=== PATIENT | female | born 1965 | race Caucasian/White ===

== ENCOUNTER 2017-02-10 00:49 | Emergency (ER) | payer OTHER ==
[2017-02-10 00:56] VITALS: TEMP 97.9
[2017-02-10] MEDS ORDERED: ONDANSETRON DISINTEGRATING 4 MG TAB ONE (00:58)
[2017-02-10] MEDS ORDERED: ONDANSETRON DISINTEGRATING 4 MG TAB PO ONE (01:06)
[2017-02-10] MEDS ORDERED: NS 1,000 ML IV ONE ×2 (01:09)
[2017-02-10] MEDS ORDERED: KETOROLAC 15 MG/1 ML SDV IVP ONE (01:09)
[2017-02-10] MEDS ORDERED: ACETAMINOPHEN 500 MG TAB PO ONE (01:09)
[2017-02-10] MEDS ORDERED: LIDOCAINE 1% 100 MG in NS 100 ML IV ONE (01:09)
--- NOTE | 2017-02-10 01:24 | EDPHY ---
H & P Stated Complaint: LEFT FLANK PAIN 3 P.M. DENIES UTI SX Time Seen by Provider: 02/10/17 00:58 HPI/ROS: HPI The patient presents with left flank pain which is dull, constant, since about 3 :00 p.m. today. It came on suddenly. It is associated with nausea and vomiting. Throughout the last 1 month she has had intermittent similar pain, though this is the most severe. She denies any dysuria or hematuria. She denies any trauma. She denies any rash.. REVIEW OF SYSTEMS Constitutional: No fever, no chills. Eyes: No discharge. ENT: No sore throat. Cardiovascular: No chest pain, no palpitations. Respiratory: No cough, no shortness of breath. Gastrointestinal: See HPI Genitourinary: No hematuria. Musculoskeletal: No back pain. Skin: No rashes. Neurological: No headache. PMHx: healthy Soc Hx: Going through a divorce PHYSICAL General Appearance: Alert, uncomfortable appearing Eyes: Pupils equal and round no pallor or injection ENT, Mouth: Mucous membranes moist Respiratory: There are no retractions, lungs are clear to auscultation Cardiovascular: Regular rate and rhythm Gastrointestinal: Abdomen is soft and non-tender, no masses, bowel sounds normal, left flank tenderness Neurological: A&O, moves all extremities Skin: Warm and dry, no rashes Musculoskeletal: Neck is supple non tender Extremities: symmetrical, full range of motion Psychiatric: Patient is oriented X 3, there is no agitation Source: Patient Exam Limitations: No limitations - Personal History LMP (Females 10-55): Irregular Current Tetanus/Diphtheria Vaccine: Yes Current Tetanus Diphtheria and Acellular Pertussis (TDAP): Yes - Medical/Surgical History Hx Asthma: No Hx Chronic Respiratory Disease: No Hx Diabetes: No Hx Cardiac Disease: No Hx Renal Disease: No Hx Cirrhosis: No Hx Alcoholism: No Hx HIV/AIDS: No Hx Splenectomy or Spleen Trauma: No Other PMH: DEPRESSION. - Social History Smoking Status: Never smoked Constitutional: Initial Vital Signs Temperature (C) 36.6 C 02/10/17 00:52 Heart Rate 61 02/10/17 00:52 Respiratory Rate 18 02/10/17 00:52 Blood Pressure 115/71 02/10/17 00:52 O2 Sat (%) 98 02/10/17 00:52 O2 Delivery Mode Room Air O2 (L/minute) 93 Allergies/Adverse Reactions: penicillin G Allergy (Verified 02/10/17 00:55) Home Medications: Medication Instructions Recorded Ondansetron Odt [Zofran Odt 4 mg 4 mg PO Q4 PRN #10 tab 02/10/17 (*)] Tamsulosin HCl [Flomax 0.4 MG (*)] 0.4 mg PO DAILY #10 cap 02/10/17 Topiramate [Qudexy Xr] 100 mg PO 02/10/17 lamoTRIgine [Lamotrigine] 100 mg PO 02/10/17 Medical Decision Making Procedures: Bedside limited abdominal Ultrasound- performed and interpreted by me. Indication: Left flank pain Findings: Left-sided hydronephrosis which is mild with hydroureter, no obvious stone, no free fluid Impression: Left-sided mild hydronephrosis with hydroureter Differential Diagnosis: This is a 51-year-old female who presents with 1 day of left-sided flank pain associated with vomiting. On exam, she is uncomfortable appearing, she has normal vital signs, she is left-sided flank tenderness. Differential diagnosis includes ureterolithiasis, pyelonephritis, less likely AAA. In the emergency room, the patient was treated with IV fluids for vomiting, Zofran, Toradol, lidocaine with complete resolution of her symptoms. She felt well. Labs were checked and were unremarkable except for hematuria. Bedside ultrasound was performed showing hydronephrosis on the left side which raises suspicion for ureterolithiasis. The patient does not want have a CT scan because she is very concerned about hospital coughs. She does not have insurance until February 15. She would like to hold on the CT scan until this time. I feel this is reasonable. I will prescribe her with medications to go home with a Neurology referral. We have discussed return precautions. - Data Points Laboratory Results: Laboratory Results 02/10/17 01:45 02/10/17 01:45 02/10/17 02/10/17 02/10/17 03:35 01:45 01:45 WBC 11.40 10^3/uL H 10^3/uL (3.80-9.50) RBC 4.68 10^6/uL 10^6/uL (4.18-5.33) Hgb 15.4 g/dL g/dL (12.6-16.3) Hct 44.6 % % (38.0-47.0) MCV 95.3 fL fL (81.5-99.8) MCH 32.9 pg pg (27.9-34.1) MCHC 34.5 g/dL g/dL (32.4-36.7) RDW 12.5 % % (11.5-15.2) Plt Count 207 10^3/uL 10^3/uL (150-400) MPV 10.1 fL fL (8.7-11.7) Neut % (Auto) 91.7 % H % (39.3-74.2) Lymph % (Auto) 4.7 % L % (15.0-45.0) [place] % (Auto) 2.7 % L % (4.5-13.0) Eos % (Auto) 0.2 % L % (0.6-7.6) Baso % (Auto) 0.4 % % (0.3-1.7) Nucleat RBC Rel Count 0.0 % % (0.0-0.2) Absolute Neuts (auto) 10.46 10^3/uL H 10^3/uL (1.70-6.50) Absolute Lymphs (auto) 0.54 10^3/uL L 10^3/uL (1.00-3.00) Absolute Monos (auto) 0.31 10^3/uL 10^3/uL (0.30-0.80) Absolute Eos (auto) 0.02 10^3/uL L 10^3/uL (0.03-0.40) Absolute Basos (auto) 0.04 10^3/uL 10^3/uL (0.02-0.10) Absolute Nucleated RBC 0.00 10^3/uL 10^3/uL (0-0.01) Immature Gran % 0.3 % % (0.0-1.1) Immature Gran # 0.03 10^3/uL 10^3/uL (0.00-0.10) Sodium 140 mEq/L mEq/L (134-144) Potassium 4.8 mEq/L mEq/L (3.5-5.2) Chloride 111 mEq/L H mEq/L (97-110) Carbon Dioxide 19 mEq/l L mEq/l (22-31) Anion Gap 10 mEq/L mEq/L (8-16) BUN 9 mg/dL mg/dL (7-23) Creatinine 0.8 mg/dL mg/dL (0.6-1.0) Estimated GFR > 60 Glucose 120 mg/dL H mg/dL (70-100) Calcium 9.2 mg/dL mg/dL (8.5-10.4) Urine Color YELLOW Urine Appearance CLEAR Urine pH 6.0 (5.0-7.5) Ur Specific [place] 1.011 (1.002-1.030) Urine Protein NEGATIVE (NEGATIVE) Urine Ketones 2+ H (NEGATIVE) Urine Blood 2+ H (NEGATIVE) Urine Nitrate NEGATIVE (NEGATIVE) Urine Bilirubin NEGATIVE (NEGATIVE) Urine Urobilinogen NEGATIVE EU EU (0.2-1.0) Ur Leukocyte Esterase NEGATIVE (NEGATIVE) Urine RBC 10-15 /hpf H /hpf (0-3) Urine WBC 3-5 /hpf H /hpf (0-3) Ur Epithelial Cells NONE SEEN /lpf /lpf (NONE-1+) Urine Bacteria TRACE /hpf H /hpf (NONE SEEN) Urine Mucus TRACE /lpf /lpf (NONE-1+) Urine Glucose NEGATIVE (NEGATIVE) Medications Given: Discontinued Medications Acetaminophen (Tylenol) 1,000 mg PO EDNOW ONE Stop: 02/10/17 01:10 Last Admin: 02/10/17 01:37 Dose: 1,000 mg Sodium Chloride (Ns) 1,000 mls @ 0 mls/hr IV ONCE ONE PRN Reason: Wide Open Stop: 02/10/17 01:10 Last Admin: 02/10/17 01:54 Dose: 1,000 mls Sodium Chloride (Ns) 1,000 mls @ 0 mls/hr IV ONCE ONE PRN Reason: Wide Open Stop: 02/10/17 01:10 Last Admin: 02/10/17 01:54 Dose: Not Given Lidocaine HCl 100 mg/ Sodium (Chloride) 110 mls @ 600 mls/hr IV EDNOW ONE Stop: 02/10/17 01:19 Last Admin: 02/10/17 01:58 Dose: 110 mls Ketorolac Tromethamine (Toradol) 15 mg IVP EDNOW ONE Stop: 02/10/17 01:10 Last Admin: 02/10/17 01:38 Dose: 15 mg Ondansetron HCl (Zofran Odt) 4 mg PO EDNOW ONE Stop: 02/10/17 01:07 Last Admin: 02/10/17 01:07 Dose: 4 mg Departure - Departure Disposition: Home, Routine, Self-Care Clinical Impression: Calculus of left kidney Instructions: Kidney Stones (ED), How to Strain Your Urine (ED) Additional Instructions: 1. Take Ibuprofen or Motrin 600 mg by mouth three times a day. 2. Take Tylenol 1 g in addition to this if the pain is severe. 3. Flomax as directed 4. Zofran as needed for nausea 5. Strain urine as directed 6. Return to the Emergency Department for intractable pain, fever or vomiting. 7. Followup with the urologist you have been referred to for unimproved symptoms. Referrals: SHYANNE STOKES [Primary Care Provider] - As per Instructions Madhu Junior MD [Medical Doctor] - As per Instructions Prescriptions: Ondansetron Odt [Zofran Odt 4 mg (*)] 4 mg PO Q4 PRN #10 tab PRN Reason: Nausea/Vomiting, Can'T Take Po Tamsulosin HCl [Flomax 0.4 MG (*)] 0.4 mg PO DAILY #10 cap
[2017-02-10 01:50] LABS: % IMMATURE GRANULYOCYTES 0.3 % (0.0-1.1); ABSOLUTE IMMATURE GRANULOCYTES 0.03 10^3/uL (0.00-0.10); ADD DIFF? NO; ADD MORPH? NO; ADD SCAN? NO; ATYPICAL LYMPHOCYTE FLAG 0 (0-99); FRAGMENT RBC FLAG 0 (0-99); HEMATOCRIT 44.6 % (38.0-47.0); HEMOGLOBIN 15.4 g/dL (12.6-16.3); LEFT SHIFT FLG 0 (0-99); LIPEMIA HEMOLYSIS FLAG 90 (0-99); MEAN CELL HEMOGLOBIN 32.9 pg (27.9-34.1); MEAN CELL HEMOGLOBIN CONCENTR. 34.5 g/dL (32.4-36.7); MEAN CELL VOLUME 95.3 fL (81.5-99.8); MEAN PLATELET VOLUME 10.1 fL (8.7-11.7); PLATELET CLUMPS FLAG 0 (0-99); PLATELET COUNT 207 10^3/uL (150-400); RED BLOOD CELL COUNT 4.68 10^6/uL (4.18-5.33); RED CELL DISTRIBUTION WIDTH 12.5 % (11.5-15.2)
[2017-02-10 02:01] LABS: ANION GAP 10 mEq/L (8-16); CALCIUM 9.2 mg/dL (8.5-10.4); CARBON DIOXIDE 19 mEq/l (22-31); CHLORIDE 111 mEq/L (97-110); CREATININE 0.8 mg/dL (0.6-1.0); GLOMERULAR FILTRATION RATE > 60; GLUCOSE 120 mg/dL (70-100); POTASSIUM 4.8 mEq/L (3.5-5.2); SODIUM 140 mEq/L (134-144)
[2017-02-10 03:42] VITALS: PULSE 66; RESP 16; O2SAT 96
[2017-02-10 04:02] LABS: COLOR YELLOW; LEUKOCYTE ESTERASE,URINE NEGATIVE (NEGATIVE); NITRITE,URINE NEGATIVE (NEGATIVE)
[2017-02-10 04:07] LABS: BACTERIA TRACE /hpf (NONE SEEN); MUCUS TRACE /lpf (NONE-1+)
[2017-02-10 04:26] VITALS: BP 115/63
== END 2017-02-10 04:25 | disposition home or self-care (01) ==
DX: N20.0 Calculus of kidney (principal)
CPT/HCPCS: 96374; J1885

== ENCOUNTER 2017-03-12 12:10 | Emergency (ER) | payer OTHER ==
[2017-03-12 12:17] VITALS: PULSE 75
[2017-03-12] MEDS ORDERED: NS 1,000 ML IV ONE (12:46)
[2017-03-12 12:52] LABS: COLOR PALE YELLOW; LEUKOCYTE ESTERASE,URINE NEGATIVE (NEGATIVE); NITRITE,URINE NEGATIVE (NEGATIVE)
[2017-03-12] MEDS ORDERED: LIDOCAINE 1% 100 MG in NS 100 ML IV ONE (13:01)
[2017-03-12] MEDS ORDERED: ONDANSETRON 4 MG/2 ML VIAL IVP ONE (13:03)
[2017-03-12 13:07] LABS: BACTERIA TRACE /hpf (NONE SEEN)
[2017-03-12 13:08] LABS: WBC,URINE NONE SEEN /hpf (0-3)
[2017-03-12 13:18] LABS: % IMMATURE GRANULYOCYTES 0.5 % (0.0-1.1); ABSOLUTE IMMATURE GRANULOCYTES 0.02 10^3/uL (0.00-0.10); ADD DIFF? NO; ADD MORPH? NO; ADD SCAN? NO; ATYPICAL LYMPHOCYTE FLAG 0 (0-99); FRAGMENT RBC FLAG 0 (0-99); HEMATOCRIT 43.3 % (38.0-47.0); HEMOGLOBIN 15.3 g/dL (12.6-16.3); LEFT SHIFT FLG 0 (0-99); LIPEMIA HEMOLYSIS FLAG 90 (0-99); MEAN CELL HEMOGLOBIN 33.3 pg (27.9-34.1); MEAN CELL HEMOGLOBIN CONCENTR. 35.3 g/dL (32.4-36.7); MEAN CELL VOLUME 94.1 fL (81.5-99.8); MEAN PLATELET VOLUME 10.2 fL (8.7-11.7); PLATELET CLUMPS FLAG 0 (0-99); PLATELET COUNT 189 10^3/uL (150-400); RED CELL DISTRIBUTION WIDTH 12.2 % (11.5-15.2)
--- NOTE | 2017-03-12 13:18 | EDPHY ---
H & P Stated Complaint: Left flank and LLQ pain, diagnosed kidney stone 1 month ago. Source: Patient Exam Limitations: No limitations - Personal History LMP (Females 10-55): Post Menopausal Current Tetanus Diphtheria and Acellular Pertussis (TDAP): Unsure - Medical/Surgical History Hx Asthma: No Hx Chronic Respiratory Disease: No Hx Diabetes: No Hx Cardiac Disease: No Hx Renal Disease: No Hx Cirrhosis: No Hx Alcoholism: No Hx HIV/AIDS: No Hx Splenectomy or Spleen Trauma: No Other PMH: DEPRESSION. - Social History Smoking Status: Never smoked Time Seen by Provider: 03/12/17 12:23 HPI/ROS: CHIEF COMPLAINT: Left flank pain, nausea and vomiting HISTORY OF PRESENT ILLNESS: 51-year-old female presents emergency department complaining of left flank pain, nausea and vomiting. Patient reports she was seen in the emergency department 1 month ago and diagnosed with a presumed kidney stone. She refuses CT scan at that time due to no health insurance and cost constraints. Patient reports her symptoms resolved, 2 days ago she developed a mild ache in her left flank, today she noticed urinary frequency and urgency and worsening left flank pain that started radiating to her left lower quadrant. Patient denies fevers or chills. She denies hematuria, no dysuria. REVIEW OF SYSTEMS: A comprehensive 10 point review of systems is otherwise negative aside from elements mentioned in the history of present illness. (Iram Fan) - Physical Exam Exam: Physical Exam Gen: Alert and Oriented, NAD HEENT: PERRL, moist mucous membranes NECK: no meningismus CV: regular rate and regular rhythm PULM: CTAB, no wheezes ABDOMEN: soft, non tender to palpation, BS present BACK: No CVA tenderness NEURO: Neurologically grossly intact EXTREMITIES: normal appearing SKIN: no rash or break in skin on exposed skin PSYCH: answers questions appropriately. (Iram Fan) Constitutional: Initial Vital Signs Temperature (C) 36.3 C 03/12/17 12:14 Heart Rate 75 03/12/17 12:14 Respiratory Rate 16 03/12/17 12:14 Blood Pressure 140/98 H 03/12/17 12:14 O2 Sat (%) 95 03/12/17 12:14 O2 Delivery Mode Room Air Allergies/Adverse Reactions: penicillin G Allergy (Verified 02/10/17 00:55) Home Medications: Medication Instructions Recorded Ondansetron Odt [Zofran Odt 4 mg 4 mg PO Q4 PRN #10 tab 02/10/17 (*)] Tamsulosin HCl [Flomax 0.4 MG (*)] 0.4 mg PO DAILY #10 cap 02/10/17 Topiramate [Qudexy Xr] 100 mg PO 02/10/17 lamoTRIgine [Lamotrigine] 100 mg PO 02/10/17 Ondansetron Odt [Zofran Odt] 4 mg PO Q6-8PRN PRN #8 tab 03/12/17 oxyCODONE/APAP 5/325 [Percocet 1 - 2 tab PO Q6H PRN #12 tab 03/12/17 5/325] Medical Decision Making - Diagnostics Imaging Results: Imaging Impressions Abdomen/Pelvis CT 03/12/17 13:03 Impression: 9 x 7 x 6.6 mm left UPJ stone with moderate obstruction. Findings discussed with Iram Fan NP, at 1340 hours, 03/12/2017. Final report concurs with initial preliminary interpretation. Attention: This examination does not use radiographic contrast, and as such, provides only a limited evaluation of the abdomen, pelvis, and retroperitoneum. If there is further clinical suspicion for pathological conditions, a complete CT evaluation of the abdomen and pelvis utilizing intravenous, oral, and rectal contrast should be considered. ED Course/Re-evaluation: IV established, CBC, chemistry panel, urinalysis ordered, CT abdomen pelvis without contrast has been ordered. I have also ordered 4 mg of Zofran and a lidocaine infusion for pain control. CBC normal, chemistry panel with normal kidney functions, urinalysis with 1-3 RBCs, no evidence of infection. CT abdomen pelvis shows a 7.4 x 5.5 x 6.6 mm stone at the UPJ with moderate hydronephrosis. Patient's pain is controlled with Zofran, Toradol and a lidocaine infusion. She will be discharged home with a prescription for Percocet and Zofran. Patient reports she will not take Flomax as she does not like the way it makes her feel from when she was prescribed at 1 month ago. She has been given the urologist to follow up with. I explained to her that this will likely need to be removed. Urology on-call has been paged and is aware of this patient. The patient has been given strict return precautions for any fevers, worsening symptoms, new symptoms or concerns. (Iram Fan) Differential Diagnosis: The differential diagnosis for the patient's flank pain included but was not limited to musculoskeletal causes, kidney stone, pyelonephritis, shingles, diverticulitis, appendicitis, and aortic aneurysm. (Iram Fan) Other Provider: [id number]: Consulted with Dr. Justice, urologist, he will see patient in his office this week. (Bennie Ocasio) - Data Points Laboratory Results: Laboratory Results 03/12/17 13:04 03/12/17 13:04 03/12/17 03/12/17 03/12/17 13:04 13:04 12:30 WBC 4.23 10^3/uL 10^3/uL (3.80-9.50) RBC 4.60 10^6/uL 10^6/uL (4.18-5.33) Hgb 15.3 g/dL g/dL (12.6-16.3) Hct 43.3 % % (38.0-47.0) MCV 94.1 fL fL (81.5-99.8) MCH 33.3 pg pg (27.9-34.1) MCHC 35.3 g/dL g/dL (32.4-36.7) RDW 12.2 % % (11.5-15.2) Plt Count 189 10^3/uL 10^3/uL (150-400) MPV 10.2 fL fL (8.7-11.7) Neut % (Auto) 71.8 % % (39.3-74.2) Lymph % (Auto) 18.0 % % (15.0-45.0) [place] % (Auto) 6.4 % % (4.5-13.0) Eos % (Auto) 2.4 % % (0.6-7.6) Baso % (Auto) 0.9 % % (0.3-1.7) Nucleat RBC Rel Count 0.0 % % (0.0-0.2) Absolute Neuts (auto) 3.04 10^3/uL 10^3/uL (1.70-6.50) Absolute Lymphs (auto) 0.76 10^3/uL L 10^3/uL (1.00-3.00) Absolute Monos (auto) 0.27 10^3/uL L 10^3/uL (0.30-0.80) Absolute Eos (auto) 0.10 10^3/uL 10^3/uL (0.03-0.40) Absolute Basos (auto) 0.04 10^3/uL 10^3/uL (0.02-0.10) Absolute Nucleated RBC 0.00 10^3/uL 10^3/uL (0-0.01) Immature Gran % 0.5 % % (0.0-1.1) Immature Gran # 0.02 10^3/uL 10^3/uL (0.00-0.10) Sodium 141 mEq/L mEq/L (134-144) Potassium 3.8 mEq/L mEq/L (3.5-5.2) Chloride 112 mEq/L H mEq/L (97-110) Carbon Dioxide 17 mEq/l L mEq/l (22-31) Anion Gap 12 mEq/L mEq/L (8-16) BUN 11 mg/dL mg/dL (7-23) Creatinine 0.8 mg/dL mg/dL (0.6-1.0) Estimated GFR > 60 Glucose 101 mg/dL H mg/dL (70-100) Calcium 8.8 mg/dL mg/dL (8.5-10.4) Urine Color Urine Appearance Urine pH Ur Specific [place] Urine Protein Urine Ketones Urine Blood Urine Nitrate Urine Bilirubin Urine Urobilinogen Ur Leukocyte Esterase Urine RBC Urine WBC Ur Epithelial Cells Urine Bacteria Urine Glucose Urine Test NEGATIVE 03/12/17 12:30 WBC RBC Hgb Hct MCV MCH MCHC RDW Plt Count MPV Neut % (Auto) Lymph % (Auto) [place] % (Auto) Eos % (Auto) Baso % (Auto) Nucleat RBC Rel Count Absolute Neuts (auto) Absolute Lymphs (auto) Absolute Monos (auto) Absolute Eos (auto) Absolute Basos (auto) Absolute Nucleated RBC Immature Gran % Immature Gran # Sodium Potassium Chloride Carbon Dioxide Anion Gap BUN Creatinine Estimated GFR Glucose Calcium Urine Color PALE YELLOW Urine Appearance CLEAR Urine pH 7.0 (5.0-7.5) Ur Specific [place] 1.002 (1.002-1.030) Urine Protein NEGATIVE (NEGATIVE) Urine Ketones NEGATIVE (NEGATIVE) Urine Blood 3+ H (NEGATIVE) Urine Nitrate NEGATIVE (NEGATIVE) Urine Bilirubin NEGATIVE (NEGATIVE) Urine Urobilinogen NEGATIVE EU EU (0.2-1.0) Ur Leukocyte Esterase NEGATIVE (NEGATIVE) Urine RBC 1-3 /hpf /hpf (0-3) Urine WBC NONE SEEN /hpf /hpf (0-3) Ur Epithelial Cells TRACE /lpf /lpf (NONE-1+) Urine Bacteria TRACE /hpf H /hpf (NONE SEEN) Urine Glucose NEGATIVE (NEGATIVE) Urine Test Medications Given: Discontinued Medications Sodium Chloride (Ns) 1,000 mls @ 0 mls/hr IV ONCE ONE PRN Reason: Wide Open Stop: 03/12/17 12:47 Last Admin: 03/12/17 12:46 Dose: 1,000 mls Lidocaine HCl 100 mg/ Sodium (Chloride) 110 mls @ 600 mls/hr IV EDNOW ONE Stop: 03/12/17 13:11 Last Admin: 03/12/17 13:15 Dose: 110 mls Ketorolac Tromethamine (Toradol) 15 mg IVP EDNOW ONE Stop: 03/12/17 13:44 Last Admin: 03/12/17 13:50 Dose: 15 mg Ondansetron HCl (Zofran) 4 mg IVP EDNOW ONE Stop: 03/12/17 13:04 Last Admin: 03/12/17 13:12 Dose: 4 mg Departure - Departure Disposition: Home, Routine, Self-Care Clinical Impression: Ureteral stone with hydronephrosis Condition: Good Instructions: Kidney Stones (ED) Additional Instructions: Kidney stone: Take Percocet as needed for severe pain. Use Zofran as needed for nausea. Take ibuprofen 600 mg every 8 hours as needed for moderate pain. This will also help with inflammation. Followup with urology. Call to schedule an appointment. Return to the emergency department if you have worsening pain, fevers, persistent vomiting, or other concerns. Referrals: Santosh Masters MD [Medical Doctor] - As per Instructions (Urologist accreditation manager) Prescriptions: Ondansetron Odt [Zofran Odt] 4 mg PO Q6-8PRN PRN #8 tab PRN Reason: Nausea/Vomiting, Can'T Take Po oxyCODONE/APAP 5/325 [Percocet 5/325] 1 - 2 tab PO Q6H PRN #12 tab PRN Reason: Pain, Severe
[2017-03-12 13:41] LABS: ANION GAP 12 mEq/L (8-16); CALCIUM 8.8 mg/dL (8.5-10.4); CARBON DIOXIDE 17 mEq/l (22-31); CHLORIDE 112 mEq/L (97-110); CREATININE 0.8 mg/dL (0.6-1.0); GLOMERULAR FILTRATION RATE > 60; GLUCOSE 101 mg/dL (70-100); POTASSIUM 3.8 mEq/L (3.5-5.2); SODIUM 141 mEq/L (134-144)
[2017-03-12] MEDS ORDERED: KETOROLAC 15 MG/1 ML SDV IVP ONE (13:43)
[2017-03-12 14:02] VITALS: BP 157/83; RESP 16; TEMP 98.3; O2SAT 94
== END 2017-03-12 14:00 | disposition home or self-care (01) ==
DX: N20.1 Calculus of ureter (principal); N13.30 Unspecified hydronephrosis
CPT/HCPCS: 96374; J1885; J2405

== ENCOUNTER 2017-09-14 16:53 | Inpatient (IN) | payer OTHER ==
--- NOTE | 2017-09-14 17:19 | EDPHY ---
HPI/HX/ROS/PE/MDM Narrative: CHIEF COMPLAINT: Abdominal pain HPI: This patient is a 52 year old female with history of kidney stones and depression complaining of abdominal pain. Her discomfort began about four months ago, but has increased in intensity since , one month ago. She has visited her primary care physician, Dr. Sun, twice regarding her symptoms. Her most recent visit was two or three weeks ago and she states lab work at that time was negative for H pylori, no elevated enzymes. Last week, her pain became more severe. She has been referred to gastroenterology for scope but has not been able to get an appointment yet. She denies having undergone any abdominal CT or other imaging. She has been taking Prilosec without relief. Today, she had such severe pain she had to leave work. She endorses nausea and has vomited four evenings in the last week, generally after lying down in bed. She denies hematemesis, hematochezia, melena. No dysuria. She had kidney stones this year beginning in December, and finally had procedural intervention in March. She states she took a lot of Advil during this time and is concerned regarding possible ulcer. Additionally, she has felt constipated this week. The patient denies fever, chest pain, shortness of breath, or other associated symptoms. REVIEW OF SYSTEMS: Aside from elements discussed in the HPI, a comprehensive 10-point review of systems was reviewed and is negative. PMH: 1. Kidney stones 2. Depression SOCIAL HISTORY: . Lives in [place]. PCP Dr. Sun. PHYSICAL EXAM: General: Patient is alert, in no acute distress. ENT:Eyes are normal to inspection. ENT inspection normal. Neck: Normal inspection. Full range of motion. Respiratory:No respiratory distress. Breath sounds normal bilaterally. Cardiovascular: Regular rate and rhythm. Strong peripheral pulses. Normal cap refill. Abdomen: Epigastric tenderness noted. There are no peritoneal signs. There are normal bowel sounds. Back: Normal to inspection. No tenderness to palpation. Skin: Normal color. No rash. Warm and dry. Extremities: Normal appearance. Full range of motion. Neuro: Oriented x3. Normal motor function. Normal sensory function. ED Course: 52 year old female presents with four month history of abdominal pain, worsening significantly over the last week. Exam reveals right upper quadrant tenderness. Plan for US abdomen to rule out cholecystitis or other acute processes. IV established. Plan for labs including CBC, BMP, liver, lipase. Plan to administer 1mg IV Dilaudid for pain relief. 19:02 Administered an additional 1mg IV Dilaudid for pain relief. 21:00: CTAP read by Dr. Felipe as showing a 3cm mass at pancreas, possibly pseudocyst. I consulted Dr. Casarez from GI. He will evaluate patient in the morning. Patient still in significant pain and requires admission for pain control and further workup. Consulted Dr. Valdez who will admit. MDM: This patient presents with ongoing severe epigastric pain not relieved by PPIs. We performed an extensive evaluation here in the ED which reveals robson- pancreatic mass. Dr. Casarez did not feel this was likely CA via telephone. Patient continued to experience severe abdominal pain in the ED requiring narcotics and will therefore need admission for pain control and close GI follow -up/further workup. I see no evidence of cholecystitis, sepsis, ACS, PNA or bowel obstruction. - Data Points Imaging Results: Imaging Impressions Abdomen Ultrasound 09/14/17 18:42 Impression: Mild enlargement of the distal common bile duct. No evidence for a choledochal stone. No evidence for cholelithiasis or cholecystitis. Results called and discussed with Umang Herrera M.D., on September 14, 2017 at 2009. Imaging: Discussed imaging studies w/ diesel trailer mechanic Radiologist Laboratory Results: Laboratory Results 09/14/17 17:37 09/14/17 17:37 09/14/17 09/14/17 17:37 17:37 WBC 5.95 10^3/uL 10^3/uL (3.80-9.50) RBC 4.74 10^6/uL 10^6/uL (4.18-5.33) Hgb 15.7 g/dL g/dL (12.6-16.3) Hct 43.6 % % (38.0-47.0) MCV 92.0 fL fL (81.5-99.8) MCH 33.1 pg pg (27.9-34.1) MCHC 36.0 g/dL g/dL (32.4-36.7) RDW 11.6 % % (11.5-15.2) Plt Count 243 10^3/uL 10^3/uL (150-400) MPV 9.7 fL fL (8.7-11.7) Neut % (Auto) 74.2 % % (39.3-74.2) Lymph % (Auto) 16.6 % % (15.0-45.0) [place] % (Auto) 7.1 % % (4.5-13.0) Eos % (Auto) 1.3 % % (0.6-7.6) Baso % (Auto) 0.5 % % (0.3-1.7) Nucleat RBC Rel Count 0.0 % % (0.0-0.2) Absolute Neuts (auto) 4.41 10^3/uL 10^3/uL (1.70-6.50) Absolute Lymphs (auto) 0.99 10^3/uL L 10^3/uL (1.00-3.00) Absolute Monos (auto) 0.42 10^3/uL 10^3/uL (0.30-0.80) Absolute Eos (auto) 0.08 10^3/uL 10^3/uL (0.03-0.40) Absolute Basos (auto) 0.03 10^3/uL 10^3/uL (0.02-0.10) Absolute Nucleated RBC 0.00 10^3/uL 10^3/uL (0-0.01) Immature Gran % 0.3 % % (0.0-1.1) Immature Gran # 0.02 10^3/uL 10^3/uL (0.00-0.10) Sodium 138 mEq/L mEq/L (134-144) Potassium 4.1 mEq/L mEq/L (3.5-5.2) Chloride 102 mEq/L mEq/L (97-110) Carbon Dioxide 21 mEq/l L mEq/l (22-31) Anion Gap 15 mEq/L mEq/L (8-16) BUN 13 mg/dL mg/dL (7-23) Creatinine 0.7 mg/dL mg/dL (0.6-1.0) Estimated GFR > 60 Glucose 90 mg/dL mg/dL (70-100) Calcium 9.8 mg/dL mg/dL (8.5-10.4) Total Bilirubin 0.7 mg/dL mg/dL (0.1-1.4) Conjugated Bilirubin 0.3 mg/dL mg/dL (0.0-0.5) Unconjugated Bilirubin 0.4 mg/dL mg/dL (0.0-1.1) AST 19 IU/L IU/L (14-46) ALT 26 IU/L IU/L (9-52) Alkaline Phosphatase 83 IU/L IU/L (38-126) Total Protein 7.1 g/dL g/dL (6.3-8.2) Albumin 4.4 g/dL g/dL (3.5-5.0) Lipase 240 IU/L IU/L (23-300) Medications Given: Discontinued Medications Hydromorphone HCl (Dilaudid) 1 mg IVP EDNOW ONE Stop: 09/14/17 17:38 Last Admin: 09/14/17 17:48 Dose: 1 mg Hydromorphone HCl (Dilaudid) 1 mg IVP EDNOW ONE Stop: 09/14/17 19:03 Last Admin: 09/14/17 19:07 Dose: 1 mg General Time Seen by Provider: 09/14/17 17:12 Initial Vital Signs: Initial Vital Signs Temperature (C) 36.6 C 09/14/17 16:56 Heart Rate 82 09/14/17 16:56 Respiratory Rate 18 09/14/17 16:56 Blood Pressure 161/97 H 09/14/17 16:56 O2 Sat (%) 93 09/14/17 16:56 O2 Delivery Mode Room Air O2 (L/minute) 10 Allergies/Adverse Reactions: penicillin G Allergy (Verified 09/14/17 21:29) Hives Home Medications: Medication Instructions Recorded Ondansetron Odt [Zofran Odt 4 mg 4 mg PO Q4 PRN #10 tab 02/10/17 (*)] lamoTRIgine [Lamotrigine] 100 mg PO DAILY 02/10/17 Acetaminophen [Tylenol 325mg (*)] 325 mg PO Q6 PRN 09/14/17 Omeprazole [Prilosec 20 mg] 20 mg PO BID 09/14/17 Hydrocodone/APAP 5/325 [[place] 1 - 2 tab PO Q4HRS PRN #30 tab 09/16/17 5/325 (*)] Polyethylene Glycol 3350 [Miralax 17 gm PO DAILY PRN pkt 09/16/17 17 gm (*)] traMADol HCL [Tramadol HCl] 50 mg PO Q6 PRN #30 tablet 09/16/17 Departure - Departure Disposition: [facility] Inpatient Acute Clinical Impression: Abdominal pain, Pancreatic mass Condition: Fair Report Scribed for: Umang Herrera Report Scribed by: Kristina Chilsd Date of Report: 09/14/17 Time of Report: 17:24 Physician Review and Approval Statement: Portions of this note were transcribed by an ED scribe. I personally performed the history, physical exam, and medical decision making; and confirm the accuracy of the information in the transcribed note.
[2017-09-14] MEDS ORDERED: HYDROmorphONE/DILAUDID 1 MG/ML INJ IVP ONE ×2 (17:37→19:02)
[2017-09-14 17:51] LABS: PLATELET COUNT 243 10^3/uL (150-400)
[2017-09-14] MEDS ORDERED: IOPAMIDOL (ISOVUE-300) 100 ML BTL ONE (20:28)
[2017-09-14] MEDS ORDERED: ACETAMINOPHEN 325 MG TAB PO PRN (22:16)
[2017-09-14] MEDS ORDERED: ONDANSETRON 4 MG/2 ML VIAL IVP PRN (22:16)
[2017-09-14] MEDS ORDERED: LORazepam 2 MG/ML INJ IVP PRN (22:16)
[2017-09-14] MEDS ORDERED: ONDANSETRON DISINTEGRATING 4 MG TAB PO PRN (22:16)
[2017-09-14] MEDS ORDERED: LACTULOSE 20 GM/30 ML UDCUP PO PRN (22:20)
[2017-09-14] MEDS ORDERED: POLYETHYLENE GLYCOL 3350 17 GM PKT PO PRN (22:20)
[2017-09-14] MEDS ORDERED: SENNOSIDES/DOCUSATE SODIUM TAB PO PRN (22:20)
[2017-09-14] MEDS ORDERED: MAGNESIUM HYDROXIDE 30 ML UDCUP PO PRN (22:20)
[2017-09-14] MEDS ORDERED: BISACODYL 10 MG SUPP PR PRN (22:20)
[2017-09-14] MEDS ORDERED: D5W NS 1,000 ML IV SCH (22:30)
--- NOTE | 2017-09-14 22:56 | PDGENHP ---
History and Physical - Chief Complaint abdominal pain - History of Present Illness Source - Patient provides history and appears reliable. EMR reviewed and case discussed with accepting provider. HPI - Pleasant 52 yo F with history of kidney stones and depression who presents to the ED today with complaints of acute on chronic epigastric pain with radiation to her upper back. Patient reports she started to develop symptoms in February. She thought she may have caught a stomach bug or as side effect of anti-malarials she was taking for her safari trip. Patient has continued to have progressive epigastric cramping pain and bloating. She endorses nausea/vomiting this past week. she denies hematemesis. She reports constipation. no melena/hematochezia. Patient has followed up with her PCP and was in process of awaiting for GI appointment. She reports negative H. pylori serology testing. she has been taking prilosec and advil without improvement in her symptoms. Today patient reports her pain was so excruciating that she could no longer sit at her desk and was crying from pain. Patient reports PMHx of pancreatic cyst resection as an . patient reports history of projectile vomiting prior to her surgery as a baby. Patient son with history of pancreatitis related to congenital malformation of pancreatic ducts. History Information - Allergies/Home Medication List Allergies/Adverse Reactions: penicillin G Allergy (Verified 09/14/17 21:29) Hives Home Medications: lamoTRIgine [Lamotrigine] 100 mg PO DAILY 02/10/17 [Last Taken 09/14/17] Acetaminophen [Tylenol 325mg (*)] 325 mg PO Q6 PRN 09/14/17 [Last Taken 09/14/17 ] Omeprazole [Prilosec 20 mg] 20 mg PO BID 09/14/17 [Last Taken 09/14/17 15:00] I have personally reviewed and updated: family history, medical history, social history, surgical history - Past Medical History Additional medical history: kidney stone. depression. IUD. 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 - Surgical History Additional surgical history: ex-lap age 9 mo with pancreatic cyst resection. lithotripsy - Family History Additional family history: mother - DM II. son - pancreatitis, autism. no FHx colon/stomach CA - Social History Smoking Status: Former smoker Tobacco Use: Cigarettes Alcohol Use: Occasionally (1 glass wine weekly recently. previously daily.) Drug Use: Marijuana (occasional for pain) Review of Systems Review of Systems: ROS: 10pt was reviewed & negative except for what was stated in HPI & below Constitutional: Denies: chills, fever EENMT: Reports: nose congestion. Denies: sore throat Cardiac: Reports: no symptoms Respiratory: Reports: no symptoms Gastrointestinal: Reports: other (see HPI) Genitourinary: Reports: no symptoms Muscolosketal: Reports: back pain Skin: Reports: no symptoms Neurological: Reports: anxiety (with recent increased stressors and illness), depressed (controlled with lamictal. no si/hi) Physical Exam Physical Exam: Selected Entries 09/14/17 16:56 Blood Pressure Automatic Method Heart Rate 82 Respiratory 18 Rate O2 Sat (%) 93 Temperature (C) 36.6 C Blood Pressure 161/97 H Mean Arterial 118 H Pressure (MAP) O2 Delivery Room Air Mode Temperature Oral Source Temp Pulse Resp BP Pulse Ox 36.6 C 85 18 150/85 H 96 09/14/17 16:56 09/14/17 22:02 09/14/17 22:02 09/14/17 22:02 09/14/17 22:02 Constitutional: no apparent distress, other (NAD at time of my interview. slightly anxious. becomes tearful discussing ddx. ) Eyes: PERRL, anicteric sclera, EOMI Ears, Nose, Mouth, Throat: moist mucous membranes, other (no nasal discharge. ) , No poor dentition Cardiovascular: regular rate and rhythym, no murmur, rub, or gallop, No systolic murmur, No edema Peripheral Pulses: 2+: dorsalis-pedis (R), dorsalis-pedis (L) Respiratory: no respiratory distress, no rales or rhonchi, clear to auscultation Gastrointestinal: no palpable masses, tenderness (epigastrium. ), No normoactive bowel sounds (hypoactive), No cano's sign, No guarding, No rebound , No distension Genitourinary: no bladder tenderness, No potter in urethra Skin: warm, normal color, No rash Musculoskeletal: full muscle strength, other (sits up independently. ), No joint tenderness, No generalized weakness Neurologic: AAOx3, sensation intact bilaterally, No facial droop Psychiatric: interacting appropriately, not encephalopathic, thought process linear, anxious, No depressed Lab Data & Imaging Review 09/15/17 03:50 09/15/17 03:50 WBC 5.95 10^3/uL (3.80-9.50) 09/14/17 17:37 RBC 4.74 10^6/uL (4.18-5.33) 09/14/17 17:37 Hgb 15.7 g/dL (12.6-16.3) 09/14/17 17:37 Hct 43.6 % (38.0-47.0) 09/14/17 17:37 MCV 92.0 fL (81.5-99.8) 09/14/17 17:37 MCH 33.1 pg (27.9-34.1) 09/14/17 17:37 MCHC 36.0 g/dL (32.4-36.7) 09/14/17 17:37 RDW 11.6 % (11.5-15.2) 09/14/17 17:37 Plt Count 243 10^3/uL (150-400) 09/14/17 17:37 MPV 9.7 fL (8.7-11.7) 09/14/17 17:37 Neut % (Auto) 74.2 % (39.3-74.2) 09/14/17 17:37 Lymph % (Auto) 16.6 % (15.0-45.0) 09/14/17 17:37 Marshall % (Auto) 7.1 % (4.5-13.0) 09/14/17 17:37 Eos % (Auto) 1.3 % (0.6-7.6) 09/14/17 17:37 Baso % (Auto) 0.5 % (0.3-1.7) 09/14/17 17:37 Nucleat RBC Rel Count 0.0 % (0.0-0.2) 09/14/17 17:37 Absolute Neuts (auto) 4.41 10^3/uL (1.70-6.50) 09/14/17 17:37 Absolute Lymphs (auto) 0.99 10^3/uL (1.00-3.00) L 09/14/17 17:37 Absolute Monos (auto) 0.42 10^3/uL (0.30-0.80) 09/14/17 17:37 Absolute Eos (auto) 0.08 10^3/uL (0.03-0.40) 09/14/17 17:37 Absolute Basos (auto) 0.03 10^3/uL (0.02-0.10) 09/14/17 17:37 Absolute Nucleated RBC 0.00 10^3/uL (0-0.01) 09/14/17 17:37 Immature Gran % 0.3 % (0.0-1.1) 09/14/17 17:37 Immature Gran # 0.02 10^3/uL (0.00-0.10) 09/14/17 17:37 Sodium 138 mEq/L (134-144) 09/14/17 17:37 Potassium 4.1 mEq/L (3.5-5.2) 09/14/17 17:37 Chloride 102 mEq/L (97-110) 09/14/17 17:37 Carbon Dioxide 21 mEq/l (22-31) L 09/14/17 17:37 Anion Gap 15 mEq/L (8-16) 09/14/17 17:37 BUN 13 mg/dL (7-23) 09/14/17 17:37 Creatinine 0.7 mg/dL (0.6-1.0) 09/14/17 17:37 Estimated GFR > 60 09/14/17 17:37 Glucose 90 mg/dL (70-100) 09/14/17 17:37 Calcium 9.8 mg/dL (8.5-10.4) 09/14/17 17:37 Total Bilirubin 0.7 mg/dL (0.1-1.4) 09/14/17 17:37 Conjugated Bilirubin 0.3 mg/dL (0.0-0.5) 09/14/17 17:37 Unconjugated Bilirubin 0.4 mg/dL (0.0-1.1) 09/14/17 17:37 AST 19 IU/L (14-46) 09/14/17 17:37 ALT 26 IU/L (9-52) 09/14/17 17:37 Alkaline Phosphatase 83 IU/L (38-126) 09/14/17 17:37 Total Protein 7.1 g/dL (6.3-8.2) 09/14/17 17:37 Albumin 4.4 g/dL (3.5-5.0) 09/14/17 17:37 Lipase 240 IU/L (23-300) 09/14/17 17:37 Imaging Review: CT Abdomen and Pelvis, With IV Contrast History: Epigastric pain for six weeks, worsening in the last 24 hours. History of kidney stones. Technique: 85 mL of Isovue-300 were given intravenously by machine power injection. Multidetector helical CT imaging was performed from the diaphragm to the symphysis pubis. Dose reduction techniques were utilized. Comparison: Ultrasound performed earlier today and CT February 2017. Findings: Abdomen: A 3.2-cm complex hypodense mass is seen in the uncinate process of the pancreas. Mild adjacent stranding in the mesentery. A thick-walled possible septation through it. The body and tail of the pancreas are normal in appearance. No focal liver lesion. The gallbladder is unremarkable. The spleen is unremarkable. The common bile duct is mildly prominent. Both kidneys enhance normally, without evidence for a mass or hydronephrosis. Both adrenal glands are normal in size and appearance. No significant abdominal lymphadenopathy. There is evidence of prior anterior abdominal wall surgery. Pelvis: Moderate stool is seen in the colon. No evidence for a small bowel obstruction. The appendix is normal in appearance. An IUD is seen in the uterus. No evidence for a bladder calculus. No significant free fluid in the pelvis. Impression: A 3.2-cm complex hypodense lesion in the uncinate process of the pancreas. This could represent a complex pancreatic cyst or neoplasm. Consider GI consultation and endoscopic ultrasound. Ultrasound Abdomen Limited History: Right upper quadrant pain. Possible cholelithiasis. Findings: The liver is homogeneous, measuring 12 cm. No focal liver lesion. No evidence for intrahepatic biliary ductal dilatation. The common bile duct is mildly enlarged , measuring 8 mm distally. No evidence for a choledochal stone. The pancreas is unremarkable. The abdominal aorta is normal in diameter. No evidence for cholelithiasis or cholecystitis. The right kidney measures 11.8 cm in length and demonstrates no evidence for a mass or hydronephrosis. No significant free fluid. Impression: Mild enlargement of the distal common bile duct. No evidence for a choledochal stone. No evidence for cholelithiasis or cholecystitis. Visualized and Interpreted imaging results: Yes Assessment & Plan Assessment: 52 yo F with hx depression and nephrolithiasis presents with progressivly worsening abdominal pain Abdominal pain (Acute) - ddx including pancreatic lesion/mass vs. gastritis vs ulcer vs constipation. GI consulted from ED and will plan to evaluate patient for EUS/bx. clears until midnight then NPO. dilaudid, ativan available prn. Pancreatic lesion (Acute) - plan as above. nausea/vomiting, not intractable - zofran, phenergan prn. depression - continue lamictal. ativan prn. FEN - IVF overnight while NPO D5NS. electrolyte replacement prn. clears then NPO after MN PPX - SCDs. holding anticoagulation for EUS. encourage ambulation. low dvt risk. COR - FULL. patient desires friend Shree Thomas to act as proxy if needed. Dispo - Admit to observation at this time pending further recs from GI.
[2017-09-14] MEDS: HYDROCODONE/APAP 5/325 TAB PO PRN (23:34)
[2017-09-15 04:13] LABS: PLATELET COUNT 201 10^3/uL (150-400)
[2017-09-15 04:23] LABS: INR 1.04 (0.83-1.16); PROTIME(PATIENT) 13.8 SEC (12.0-15.0)
[2017-09-15] MEDS: HYDROmorphONE/DILAUDID 1 MG/ML INJ IVP PRN ×4 (09:38→23:38)
--- NOTE | 2017-09-15 12:51 | HOSPPROG ---
Hospitalist Progress Note Assessment/Plan: 52 yo f w abd pain and cystic pancreatic mass pancreatic mass: eus w likely biopsy today h/o benign pancreatic cyst at young age noted abd pain: seems reasonable to attribute to mass mood disorder: lamictal proph: [facility]mwh if staying dispo: possibly home after biopsy Subjective: case d/w dr mohr. ct images reviewed/interpreted by me Objective: Vital Signs Temp Pulse Resp BP Pulse Ox 35.8 C L 71 18 149/86 H 98 09/15/17 12:00 09/15/17 12:00 09/15/17 12:00 09/15/17 12:00 09/15/17 12:00 Laboratory Results 09/15/17 03:50 09/15/17 03:50 09/14/17 09/15/17 09/16/17 05:59 05:59 05:59 Intake Total 784 Balance 784 PT 13.8 SEC (12.0-15.0) 09/15/17 03:50 INR 1.04 (0.83-1.16) 09/15/17 03:50 - Physical Exam Constitutional: no apparent distress, appears nourished Eyes: PERRL, anicteric sclera Ears, Nose, Mouth, Throat: moist mucous membranes, hearing normal Cardiovascular: regular rate and rhythym, no murmur, rub, or gallop Respiratory: no respiratory distress, no rales or rhonchi Gastrointestinal: normoactive bowel sounds, No guarding, No rebound Genitourinary: no bladder fullness, No potter in urethra Skin: warm, normal color Musculoskeletal: full muscle strength ICD10 Worksheet Patient Problems: Problems Problem Status Onset Abdominal pain Acute Pancreatic mass Acute
[2017-09-15] MEDS ORDERED: LIDOCAINE 2% 5 ML SDV ONE (13:13)
[2017-09-15] MEDS ORDERED: PROPOFOL/EMULSION 500 MG/50 ML BOTTLE IV ONE ×2 (13:14→13:58)
--- NOTE | 2017-09-15 13:16 | PDGENHP ---
History & Physical Chief Complaint: abdominal pain History of Present Illness: 52 year old female presents for evaluation of abdominal pain- midepi as well as abnormal imaging. CT scan reveales a 3.5 cm mass in uncinate process. Pertinent Past, Social, Family History: see dictated consult for details. Relevant Physical Exam: HEENT: anicteric. CV: RRR + s1s2. Lungs: CTAB No w/r/ r. Abd: tender in midepi Cardiorespiratory Assessment: ASA 2
[2017-09-15] MEDS ORDERED: MIDAZOLAM 2 MG/2 ML VIAL ONE (13:19)
--- NOTE | 2017-09-15 13:22 | GCON ---
[f rep st] CONSULTATION DATE OF CONSULTATION: 09/15/2017 CONSULTING PHYSICIAN: Steven Newby MD. REASON FOR CONSULTATION: Abnormal imaging/abdominal pain. CHIEF COMPLAINT: Abdominal pain. HISTORY OF PRESENT ILLNESS: The patient is a 52-year-old female with a history of kidney stones, depression, who presents to [facility] with complaints of abdominal pain. The patient states that she was doing well until approximately this April when she started to experience intermittent abdominal pain, mainly in the upper quadrants of her abdomen. This was very minor and of short duration. She states that this progressively got worse over the next several months. She now complains of a pain in the midepigastric area which she describes as "swallowing glass." This pain occurs on a daily basis and lasts multiple hours. She believes it is exacerbated by eating and she has decreased her oral intake. She denies any significant alleviating factors. She was placed on proton pump inhibitor therapy with little relief of her symptoms. She did have a trip to [facility] in May, but states the pain started before her trip. She also has complaints of nausea and vomited approximately 4 times in the last 1 week. She also complains of bloating. She states that her weight has been stable. She did have a CT scan with IV and p.o. contrast on 09/14/2017 which did reveal a possible low-density lesion in the uncinate process of the pancreas. There is no pancreatic duct dilation or common bile duct dilation. There is no evidence of chronic pancreatitis. She does have minor complaints of constipation. She states that she may have had a pancreatic cyst resection in her 1st year of life, but is unsure of why this was performed. Her son did have an episode of pancreatitis. She denies any significant alcohol use. I am asked by Dr. Newby to evaluate the patient in consultation regarding her abnormal imaging/abdominal pain. PAST MEDICAL HISTORY: Depression, kidney stone. PAST SURGICAL HISTORY: Pancreatic cyst resection, lithotripsy. FAMILY HISTORY: Son has pancreatitis and autism. Mother diabetes mellitus type 2. No history of colon cancer. SOCIAL HISTORY: Former smoker. Drinks occasional alcohol. Positive marijuana. ALLERGIES: Penicillin. HOME MEDICATIONS: Lamotrigine 100 mg p.o. daily, omeprazole 20 mg b.i.d. REVIEW OF SYSTEMS: A 14-point comprehensive review of systems was performed. Pertinent positives and negatives are per HPI. PHYSICAL EXAMINATION: VITAL SIGNS: Blood pressure 149/86, pulse 71, temperature 35.8. GENERAL: Awake, alert, oriented x3. No distress. HEENT: Anicteric. Moist mucosa. NECK: No JVD. CARDIOVASCULAR: Regular rate and rhythm. Positive S1, S2. No murmurs or gallops appreciated. LUNGS: Clear to auscultation bilaterally. No wheezes, rales or rhonchi. ABDOMEN: Tender in the midepigastrium area. No guarding. No rebound. Positive bowel sounds. EXTREMITIES: No clubbing, cyanosis or edema. NEUROLOGIC: 2 through 12 grossly intact. PSYCH: Normal affect. LYMPH: No lymphadenopathy noted. BLOOD WORK: WBCs 4.3, hemoglobin 14.3, hematocrit 40.6, platelets 201. INR 1.04, alkaline phosphatase 61, albumin 3.4, total bilirubin 0.6, AST 18, ALT 27 , sodium 140, potassium 3.8, chloride 104, bicarb 26, BUN 13, hemoglobin 14.3, hematocrit 40.6. CT scan on 09/14/2017: See HPI. Positive 3.2 cm hypodense lesion uncinate process of the pancreas without pancreatic duct dilation or common bile duct dilation. ASSESSMENT/PLAN: 1. Abdominal pain- chronic. Mainly in the upper abdomen. Does get some bloating, nausea, and vomiting. CT scan reveals a possible mass lesion in the pancreatic head. Etiology? Unsure of cause of her pain as well as abnormal imaging. I had a long discussion with the patient about proceeding with endoscopic ultrasound examination to evaluate her pancreas/abdominal pain with possible fine needle aspiration. The risks, benefits, and alternatives of the procedure were discussed in great detail with the patient. The risk of infection, bleeding, perforation, sedation were discussed. All questions answered and informed consent was obtained. Thank you very much for this consultation. /[id number]/MODL MTDD
--- NOTE | 2017-09-15 13:29 | PDANEPAE ---
ANE History of Present Illness 52 yo for egd/eus ANE Past Medical History - Pulmonary History Hx Oxygen in Use at Home: No Hx Sleep Apnea: No Sleep Apnea Screening Result - Last Documented: Negative - Endocrine History Hx Diabetes: No - Chronic Pain History Chronic Pain: No ANE Review of Systems Review of Systems: - Exercise capacity METS (RN): 4 METS ANE Patient History - Allergies Allergies/Adverse Reactions: penicillin G Allergy (Verified 09/14/17 21:29) Hives - Home Medications Home medications: home medication list seen and reviewed Home Medications: lamoTRIgine [Lamotrigine] 100 mg PO DAILY 02/10/17 [Last Taken 09/14/17] Acetaminophen [Tylenol 325mg (*)] 325 mg PO Q6 PRN 09/14/17 [Last Taken 09/14/17 ] Omeprazole [Prilosec 20 mg] 20 mg PO BID 09/14/17 [Last Taken 09/14/17 15:00] - NPO status NPO Status: no food or drink >8 hours NPO Since - Liquids (Date): 09/15/17 NPO Since - Liquids (Time): 00:00 NPO Since - Solids (Date): 09/15/17 NPO Since - Solids (Time): 00:00 - Anes Hx Anes Hx: no prior problems - Smoking Hx Smoking Status: Former smoker - Alcohol Use Alcohol Use: Occasionally (1 glass wine weekly recently. previously daily.) ANE Labs/Vital Signs - Labs Result Diagrams: 09/15/17 03:50 09/15/17 03:50 - Vital Signs Blood Pressure: 149/86 Heart Rate: 71 Respiratory Rate: 18 O2 Sat (%): 98 Height: 5 ft 3 in Weight: 66.587 kg ANE Physical Exam - Airway Neck exam: FROM Mallampati Score: Class 2 Mouth exam: normal dental/mouth exam - Pulmonary Pulmonary: no respiratory distress - Cardiovascular Cardiovascular: regular rate and rhythym - ASA Status ASA Status: II ANE Anesthesia Plan Anesthesia Plan: GA with mask
[2017-09-15] MEDS ORDERED: NS 500 ML IV SCH (13:30)
[2017-09-15] MEDS ORDERED: NALOXONE HCL 0.4 MG/ML INJ IVP PRN (14:52)
[2017-09-15] MEDS ORDERED: fentaNYL 100 MCG/2 ML INJ IVP PRN (14:52)
[2017-09-15] MEDS ORDERED: ONDANSETRON 4 MG/2 ML VIAL IVP PRN (14:52)
[2017-09-15] MEDS ORDERED: fentaNYL 100 MCG/2 ML INJ ONE (15:02)
--- NOTE | 2017-09-15 15:03 | POSTANESTH ---
Post Anesthetic Evaluation Cardiovascular Status: Normal, Stable Respiratory Status: Normal, Stable Level of Consciousness/Mental Status: Can Participate in Eval Pain Control: Adequate, Prn Tx Ordered Nausea/Vomiting Control: Adequate, Prn Tx Ordered Complications Possibly Related to Anesthesia: None Noted
[2017-09-15] MEDS ORDERED: ONDANSETRON 4 MG/2 ML VIAL ONE (15:07)
--- NOTE | 2017-09-15 15:14 | GIREPORT ---
[facility] Surgical Services - Endoscopy Department Patient Name: Gwendolyn Cabrera Procedure Date: 09/15/2017 11:48 AM Patient Type: Inpatient Attending MD/ ER Physician: Panda Casarez MD Procedure: Upper EUS Indications: Suspected mass in pancreas on CT scan, Epigastric abdominal pain Patient Profile: 52 year old female presents for evaluation of epigastric abdominal pain , nausea, vomiting, as well as possible mass lesion in head of pancreas. Providers: Panda Casarez MD Medicines: Monitored Anesthesia Care Complications: No immediate complications. Estimated blood loss: Minimal. Description of Procedure: After obtaining informed consent, the endoscope was passed under direct vision. Throughout the procedure, the patient's blood pressure, pulse, and oxygen saturations were monitored continuously. The Endoscope was intro duced through the mouth, and advanced to the second part of duodenum. The Endosonoscope was introduced through the mouth, and advanced to the sec ond part of duodenum. The upper EUS was accomplished without difficulty. Th e esophagus, stomach, and duodenum were visualized endosonographically. T he patient tolerated the procedure well. Findings: Endoscopic Finding : The examined esophagus and an inlet patch was noted in the proximal esophagus. A small hiatal hernia was present. Patchy mildly erythematous mucosa was found in the gastric body and in the gastric antrum. Biopsies were taken with a cold forceps for histology. The examined duodenum was normal. Biopsies for histology were taken wit h a cold forceps for evaluation of celiac disease. Endosonographic Finding : An irregular mass was identified in the pancreatic head. The mass was hypoechoic. The mass measured 33 mm by 35 mm in maximal cross-sectional diameter. The endosonographic borders were poorly-defined. The remainde r of the pancreas was examined. The endosonographic appearance of parenchyma and the upstream pancreatic duct indicated no duct dilation and hyperechoic ductal toth. Fine needle aspiration for cytology was performed. Color Doppler imaging was utilized prior to needle puncture to confirm a lack of significant vascular structures within the needle path. Four passes wer e made with the 25 gauge needle (2 using 25 gauge core biopsy needle) usi ng a transduodenal approach. A stylet was used. A locomotive supervisor was present and performed a preliminary cytologic examination. The cellularity of the specimen was adequate. Pancreatic parenchymal abnormalities were noted in the entire pancreas. These consisted of hyperechoic foci. There was no sign of significant endosonographic abnormality in the com mon bile duct and in the gallbladder. No lymphadenopathy seen. There was no sign of significant endosonographic abnormality in the ent emmanuel examined liver. Estimated Blood Loss: Estimated blood loss was minimal. Post Op Diagnosis: - Normal esophagus. - Small hiatal hernia. - Erythematous mucosa in the gastric body and antrum. Biopsied. - Normal examined duodenum. Biopsied. - A mass was identified in the pancreatic head. Fine needle aspiration performed. - Pancreatic parenchymal abnormalities consisting of hyperechoic foci w ere noted in the entire pancreas. - There was no sign of significant pathology in the common bile duct an d in the gallbladder. - There was no evidence of significant pathology in the entire examined liver. - Etiology? Suspect pancreatic cancer. Await final FNA results. No obvi ous vascular invasion noted. Keep NPO for today. Recommendation: - Return patient to [facility] for [facility] care. - NPO. - Oncology referral. - Await cytology results and await path results. - Thank you for allowing me to participate in the care of your patient. Attending Participation: I personally performed the entire procedure. Panda Casarez MD Panda Casarez MD 09/15/2017 3:14:09 PM This report has been signed electronicallyRamu Raju , MD Number of Addenda: 0 Note Initiated On: 09/15/2017 11:48 AM [email or web address]
--- NOTE | 2017-09-15 19:13 | PDMN ---
Medical Necessity Medical necessity: C/M review: Patient [place] [facility] [place] Abdominal pain, undiagnosed; Acute and persistent abdominal pain, 3.2 mm mass in the uncinate process of the pancreas on CT requiring 09/15 2017 upper EUS with fine aspiration biopsy of pancreatic mass, cytology pending, ongoing NPO till AM, IV fluids. IV Dilaudid, comorbid history of benign pancreatic cyst at a young age. MD anticipates > 2 MN LOS for ongoing med nec for eval and TX of above.
[2017-09-15] MEDS: HYDROCODONE/APAP 5/325 TAB PO PRN (19:31)
[2017-09-15] MEDS: PANTOPRAZOLE SODIUM 40 MG TAB PO SCH (19:31)
[2017-09-15] MEDS ORDERED: NON-FORMULARY NEW DRUG (Omeprazole [Prilosec 20 Mg] 20 MG) PO SCH (21:00)
[2017-09-16 03:45] VITALS: RESP 16
[2017-09-16] MEDS: HYDROmorphONE/DILAUDID 1 MG/ML INJ IVP PRN (04:15)
[2017-09-16] MEDS: HYDROCODONE/APAP 5/325 TAB PO PRN ×3 (05:27→11:17)
[2017-09-16 07:10] VITALS: PULSE 78
[2017-09-16] MEDS: PANTOPRAZOLE SODIUM 40 MG TAB PO SCH (08:43)
[2017-09-16] MEDS ORDERED: lamoTRIgine 100 MG TAB PO SCH (09:00)
[2017-09-16 10:57] VITALS: BP 143/91; TEMP 98; O2SAT 93
--- NOTE | 2017-09-16 12:20 | HOSPPROG ---
Hospitalist Progress Note Assessment/Plan: 52 yo f w abd pain and cystic pancreatic mass pancreatic mass: eus w likely biopsy today h/o benign pancreatic cyst at young age noted abd pain: seems reasonable to attribute to mass mood disorder: lamictal proph: lmwh if staying dispo: home today after onc eval >30 min Subjective: pain OK Objective: Vital Signs Temp Pulse Resp BP Pulse Ox 36.7 C 78 16 143/91 H 93 09/16/17 10:57 09/16/17 10:57 09/16/17 10:57 09/16/17 10:57 09/16/17 10:57 09/15/17 09/16/17 09/17/17 05:59 05:59 05:59 Intake Total 0 Balance 0 PT 13.8 SEC (12.0-15.0) 09/15/17 03:50 INR 1.04 (0.83-1.16) 09/15/17 03:50 - Physical Exam Constitutional: no apparent distress, appears nourished Eyes: PERRL, anicteric sclera Ears, Nose, Mouth, Throat: moist mucous membranes, hearing normal Cardiovascular: regular rate and rhythym, no murmur, rub, or gallop Respiratory: no respiratory distress, no rales or rhonchi Gastrointestinal: normoactive bowel sounds, soft, non-tender abdomen, No guarding, No rebound Genitourinary: No potter in urethra Skin: warm, normal color Musculoskeletal: full muscle strength, no muscle tenderness Neurologic: AAOx3 ICD10 Worksheet Patient Problems: Problems Problem Status Onset Abdominal pain Acute Pancreatic mass Acute
--- NOTE | 2017-09-16 12:28 | SOAPPROG ---
GOLD Progress Note Assessment/Plan: Assessment: Plan: 09/16/17 12:25 A/P 1. Panc mass- s/p EUS with FNA. FNA lesional on preliminary read. No obvious complication noted. Oncology will see today. GI will sign off. Thank you for the consultation. Subjective: cc: epigastric pain. F/u panc mass Still complaining of pain. Baseline. Objective: Vital Signs Temp Pulse Resp BP Pulse Ox 36.7 C 78 16 143/91 H 93 09/16/17 10:57 09/16/17 10:57 09/16/17 10:57 09/16/17 10:57 09/16/17 10:57 09/15/17 09/16/17 09/17/17 05:59 05:59 05:59 Intake Total 0 Balance 0 PT 13.8 SEC (12.0-15.0) 09/15/17 03:50 INR 1.04 (0.83-1.16) 09/15/17 03:50 Physical Exam - Physical Exam General Appearance: alert, no apparent distress EENT: No scleral icterus (R), No scleral icterus (L) Respiratory: lungs clear, normal breath sounds, No rales, No rhonchi Cardiac/Chest: regular rate, rhythm, No bradycardia, No tachycardia, No diastolic murmur, No systolic murmur Abdomen: soft, No non-tender (tender in midepi), No rebound Skin: normal color, warm/dry Neuro/Psych: normal mood/affect, oriented x 3, No abnormal drier feeder II-XII ICD10 Worksheet Patient Problems: Problems Problem Status Onset Abdominal pain Acute Pancreatic mass Acute
--- NOTE | 2017-09-16 14:17 | ASMTCMCOM ---
CM Note CM Note Notes: Chart reviewed. 52 year old female with new dx of pancreatic cancer. She currently has no needs identified Follow up appointments in place.. CM available should needs arise. Date Signed: 09/16/2017 02:16 PM Electronically Signed By:Marylin Diggs RN
--- NOTE | 2017-09-16 14:21 | GCON ---
[f rep st] CONSULTATION ONCOLOGY CONSULTATION NOTE REASON FOR CONSULTATION: Pancreatic mass with preliminary diagnosis of pancreatic cancer. HISTORY OF PRESENT ILLNESS: The patient is a very pleasant 52-year-old female recently diagnosed with a pancreatic mass. She has been in her usual state of health until June when she started developing intermittent severe mid- epigastric pain. The pain radiated to all quadrants of her abdomen and radiated to her back. She did not have any relief with antacid therapy. She presented to the emergency room due to the severity of the pain, and a CT scan of the abdomen was performed on September 14. That identified a 3.2 cm complex hypodense lesion in the uncinate process of the pancreas. There was no pancreatic ductal dilatation. No evidence of abnormal adenopathy, and no evidence of metastatic disease. The patient underwent an endoscopic ultrasound with Dr. Casarez yesterday, with the findings of a 3.5 cm mass in the uncinate process. Per his report, preliminary cytology is consistent with an adenocarcinoma. There were no abnormal lymph nodes identified. The patient has been receiving [place] for pain and is feeling considerably better. PAST MEDICAL HISTORY: Kidney stones, depression, history of a pancreatic cyst resected when she was 9 months old. SURGICAL HISTORY: Exploratory laparotomy at age 9 months for pancreatic cyst resection and lithotripsy. FAMILY HISTORY: Notable for a son who has autism and pancreatitis. There is no family history of breast or ovarian cancer. No family history of pancreatic or melanoma. SOCIAL HISTORY: She is a former smoker and drinks occasionally. REVIEW OF SYSTEMS: 10-point review of systems is negative other than HPI. PHYSICAL EXAM: VITAL SIGNS: Blood pressure 143/91, heart rate 78, respirations 16, O2 saturation 93%. She is afebrile. Physical exam is otherwise deferred today. IMPRESSION: This is a 52-year-old female with a several-month history of severe abdominal pain, recently identified to have a 3.5 cm mass in the uncinate process of the pancreas. Endoscopic ultrasound did not identify any abnormal adenopathy, and preliminary fine needle aspiration is consistent with pancreatic adenocarcinoma. I reviewed the CT scans with Dr. Jordan. There is no obvious superior mesenteric vein or superior mesenteric artery invasion. There was a question of duodenal invasion. There is no obvious evidence of metastatic disease. I explained to the patient that the next step would be to obtain a PET-CT, which I will be arranging as an outpatient hopefully for next week. She is changing insurances as of tomorrow, and therefore she will need to start working with her insurance company to facilitate authorization of the upcoming tests. We also discussed the importance of a multidisciplinary approach and identifying a surgeon. She is interested in being evaluated by a GI oncology surgeon. I offered [facility] as a possibility, or Dr. Joaquim Lindo in [place]. I will be contacting her Sunday after I have contacted both surgeons, and we can determine at that time which direction she wants to go. I anticipate reviewing her case at GI conference in the coming weeks. For the present time, her pain is fairly well controlled with [place]. The patient is being discharged today. /[id number]/MODL MTDD
--- NOTE | 2017-09-17 00:17 | GDS ---
[f rep st] DISCHARGE SUMMARY PATIENT NAME: FAITH DATE OF : DISCHARGE DIAGNOSES: 1. New diagnosis of pancreatic cancer without apparent metastases. 2. Abdominal pain. 3. Mood disorder. Please see admission history and physical by Dr. Shanon Lo. The patient presented with abdominal pain. She had abdominal CT showing mass in the uncinate process. She underwent EUS with biopsy. Fr ozen sections were positive for cancer. She was seen by Oncology, where plans for outpatient staging workup will be completed. She is discharged home with tramadol and a limited prescription for narco tics. She does not particularly do well with them. Greater than 30 minutes spent on the preparation of this discharge. /[id number]/MODL
== END 2017-09-16 14:26 | disposition home or self-care (01) | DRG 437 ==
LOC: F2W 22:33 → F3E 09-15 14:14 → EEVIPCON 09-15 18:18 → OBSVTOIN 09-15 18:18
PROVIDERS: ADMIT Internal Medicine; ATTEND Internal Medicine
PROC: 0DB68ZX Excision of Stomach, Via Natural or Artificial Opening Endoscopic, Diagnostic (ICD-10-PCS; principal; 2017-09-15 13:00)
PROC: 0F9G8ZX Drainage of Pancreas, Via Natural or Artificial Opening Endoscopic, Diagnostic (ICD-10-PCS; principal; 2017-09-15 13:00)
PROC: 0DB98ZX Excision of Duodenum, Via Natural or Artificial Opening Endoscopic, Diagnostic (ICD-10-PCS; principal; 2017-09-15 13:00)
DX: C25.0 Malignant neoplasm of head of pancreas (principal); F32.9 Major depressive disorder, single episode, unspecified; K44.9 Diaphragmatic hernia without obstruction or gangrene; Z87.891 Personal history of nicotine dependence; Z87.442 Personal history of urinary calculi; Z88.0 Allergy status to penicillin
CPT/HCPCS: 96374; G0378; J1170; J2060; J2250; J2405; J2704; J3010; Q9967

== ENCOUNTER 2017-10-03 00:20 | Inpatient (IN) | payer OTHER ==
[2017-10-03] MEDS ORDERED: NS 1,000 ML IV ONE ×2 (00:47→02:21)
[2017-10-03] MEDS ORDERED: HYDROmorphONE/DILAUDID 1 MG/ML INJ IVP ONE ×2 (00:47→01:44)
--- NOTE | 2017-10-03 00:47 | EDPHY ---
H & P Stated Complaint: abd pain and back pain for 3 months worst tonight HPI/ROS: HPI CHIEF COMPLAINT: Worsening abdominal pain HISTORY OF PRESENT ILLNESS: This patient very pleasant 52-year-old female recent diagnosis of pancreatic cancer on September 16 she had U/S done with a biopsy that shows pancreatic tumor that is cancer. Apparently without metastatic disease, she is due later this month to have her port placement undergo chemotherapy. Patient presents emergency room as she has a uncontrollable epigastric abdominal pain. With associated nausea but no vomiting. Denies fever. Denies chest pain or shortness of breath. Pain is located epigastric region. Rather severe. It out of 10. She is unable to control her pain at home with oral pain medicine. She distally reports to me that she has gastritis, and H pylori. Past Medical History: Pancreatic tumor, H pylori, gastritis, peptic ulcer disease Past Surgical History: , pancreatic pseudocyst drained as a child Social History: Denies drugs alcohol tobacco. Family History: Noncontributory ROS REVIEW OF SYSTEMS: A comprehensive 10 point review of systems is otherwise negative aside from elements mentioned in the history of present illness. Exam Constitutional appears nontoxic triage nursing summary reviewed, vital signs reviewed, awake/alert. Eyes normal conjunctivae and sclera, EOMI, PERRLA. HENT normal inspection, atraumatic, moist mucus membranes, no epistaxis, neck supple/ no meningismus, no raccoon eyes. Respiratory clear to auscultation bilaterally, normal breath sounds, no respiratory distress, no wheezing. Cardiovascular rate normal, regular rhythm, no murmur, no edema, distal pulses normal. Gastrointestinal soft, tender palpation epigastric region, no rebound, no guarding, normal bowel sounds, no distension, no pulsatile mass. Genitourinary no CVA tenderness. Musculoskeletal no midline vertebral tenderness, full range of motion, no calf swelling, no tenderness of extremities, no meningismus, good pulses, neurovascularly intact. Skin pink, warm, & dry, no rash, skin atraumatic. Neurologic awake, alert and oriented x 3, AAOx3, moves all 4 extremities equally, motor intact, sensory intact, CN II-XII intact, normal cerebellar, normal vision, normal speech. Psychiatric normal mood/affect. Heme/Lymph/Immune no lymphadenopathy. Differential diagnosis includes but is not limited to and in no particular order : Worsening pancreatic tumor, pancreatitis, gastritis, peptic ulcer disease, gastric outlet obstruction, esophagitis Bowel obstruction, appendicitis, gallbladder disease, diverticulitis, colitis, enteritis, perforated viscus, gastritis, GERD, esophagitis, urinary tract infection, pyelonephritis, kidney stones Medical Decision Making: Plan for this patient IV establishment IV fluid bolus , 1 mg IV Dilaudid for pain control, basic blood work and re-evaluate. Re-evaluation: CT scan abdomen pelvis with IV contrast shows acute pancreatitis. Additionally a pancreatic mass that was already known. Additionally there appears to be new liver lesions. Concerning for liver metastasis. This report was called to me by Dr. Sunshine. Patient be admitted for acute pancreatitis, abdominal pain, pancreatic mass with Mets. I have updated the patient about this. She is receiving her 2nd L fluid. I have given her multiple rounds of Dilaudid. For acute pain control. Source: Patient - Personal History LMP (Females 10-55): 1-7 Days Ago Current Tetanus/Diphtheria Vaccine: Yes Current Tetanus Diphtheria and Acellular Pertussis (TDAP): Yes - Medical/Surgical History Hx Asthma: No Hx Chronic Respiratory Disease: No Hx Diabetes: No Hx Cardiac Disease: No Hx Renal Disease: No Hx Cirrhosis: No Hx Alcoholism: No Hx HIV/AIDS: No Hx Splenectomy or Spleen Trauma: No Other PMH: DEPRESSION . Kidney stones, c- section, pancreatic cyst removal. - Social History Smoking Status: Former smoker Constitutional: Initial Vital Signs Temperature (C) 36.9 C 10/03/17 00:22 Heart Rate 96 10/03/17 00:22 Respiratory Rate 16 10/03/17 00:22 Blood Pressure 144/101 H 10/03/17 00:22 O2 Sat (%) 96 10/03/17 00:22 O2 Delivery Mode Room Air Allergies/Adverse Reactions: Penicillins Allergy (Verified 10/03/17 10:05) Hives Home Medications: Medication Instructions Recorded Omeprazole [Prilosec 20 mg] 40 mg PO BID 09/14/17 Polyethylene Glycol 3350 [Miralax 17 gm PO DAILY PRN pkt 09/16/17 17 gm (*)] traMADol HCL [Tramadol HCl] 50 mg PO Q6 PRN #30 tablet 09/16/17 ALPRAZolam [Xanax 0.25 MG (*)] 0.25 mg PO HS PRN 10/03/17 Bismuth Subsalicylate 15 ml PO Q3 PRN 10/03/17 [Pepto-Bismol oral liquid (*)] Calcium Carbonate [Tums 500MG (*)] 500 mg PO DAILY PRN 10/03/17 Clarithromycin [Biaxin (*)] 500 mg PO BID 10/03/17 Prochlorperazine Maleate 10 mg PO Q4-6PRN PRN 10/03/17 [Compazine 10mg (*)] Sucralfate [Carafate 1gm/10ml Oral 1 gm PO QID 10/03/17 Liquid (*)] lamoTRIgine [LamICTAL 100 MG (*)] 100 mg PO DAILY 10/03/17 metroNIDAZOLE [Flagyl 500 mg (*)] 500 mg PO TID 10/03/17 oxyCODONE/APAP 5/325 [Percocet 1 tab PO Q4HRS PRN 10/03/17 5/325 (*)] Medical Decision Making - Data Points Laboratory Results: Laboratory Results 10/03/17 01:30 10/03/17 01:30 10/03/17 01:30 Carcinoembryonic Ag 25.30 ng/mL H ng/mL (0.00-3.00) Medications Given: Alprazolam (Xanax) 0.25 mg PO HS PRN PRN Reason: Sleep/Insomnia Stop: 04/01/18 10:14 Last Admin: 10/03/17 20:51 Dose: 0.25 mg Bisacodyl (Bisacodyl) 5 - 10 mg PO DAILY PRN PRN Reason: constipation Stop: 04/01/18 17:42 Last Admin: 10/03/17 19:34 Dose: 10 mg Bismuth Subsalicylate (Pepto-Bismol) 262 mg PO Q3 PRN PRN Reason: gi upset Stop: 04/01/18 10:14 Last Admin: 10/03/17 11:50 Dose: 262 mg Clarithromycin (Biaxin) 500 mg PO BID YOMAIRA PRN Reason: Protocol Stop: 11/02/17 10:29 Last Admin: 10/03/17 20:51 Dose: 500 mg Enoxaparin Sodium (Lovenox) 40 mg SC DAILY YOMAIRA Stop: 04/01/18 08:59 Last Admin: 10/03/17 08:20 Dose: 40 mg Hydralazine HCl (Apresoline) 10 mg IVP Q6 PRN PRN Reason: SBP>160 Stop: 04/01/18 10:21 Last Admin: 10/03/17 15:35 Dose: 10 mg Hydromorphone HCl (Dilaudid) 0.5 - 1 mg IVP Q2 PRN PRN Reason: Pain, Severe Unable to Take PO Stop: 10/13/17 03:33 Last Admin: 10/03/17 11:37 Dose: 1 mg Sodium Chloride (Ns) 1,000 mls @ 200 mls/hr IV CONT [facility] Stop: 10/04/17 06:00 Last Admin: 10/04/17 02:03 Dose: 1,000 mls Lamotrigine (Lamictal) 100 mg PO DAILY [facility] Stop: 04/01/18 14:44 Last Admin: 10/03/17 15:10 Dose: 100 mg Metronidazole (Flagyl) 500 mg PO TID YOMAIRA PRN Reason: Protocol Stop: 11/02/17 10:29 Last Admin: 10/03/17 20:51 Dose: 500 mg Morphine Sulfate (Morphine Roll Forming Machine Operator) 0 mg IV PRN PRN; Protocol PRN Reason: Pain, Severe Unable to Take PO Stop: 10/13/17 16:54 Last Admin: 10/03/17 19:41 Dose: 30 mg Ondansetron HCl (Zofran) 4 mg IVP Q4HRS PRN PRN Reason: Nausea/Vomiting, Can't Take PO Stop: 04/01/18 03:33 Last Admin: 10/03/17 15:11 Dose: 4 mg Pantoprazole Sodium (Protonix) 40 mg PO BID [facility] Stop: 04/01/18 20:59 Last Admin: 10/03/17 20:51 Dose: 40 mg Sucralfate (Carafate Suspension) 1 gm PO QID [facility] Stop: 04/01/18 11:59 Last Admin: 10/03/17 20:51 Dose: 1 gm Discontinued Medications Fentanyl (Sublimaze) 25 mcg IVP EDNOW ONE Stop: 10/03/17 02:25 Last Admin: 10/03/17 02:28 Dose: 25 mcg Hydromorphone HCl (Dilaudid) 1 mg IVP EDNOW ONE Stop: 10/03/17 00:48 Last Admin: 10/03/17 01:04 Dose: 1 mg Hydromorphone HCl (Dilaudid) 1 mg IVP EDNOW ONE Stop: 10/03/17 01:45 Last Admin: 10/03/17 01:52 Dose: 1 mg Hydromorphone HCl (Dilaudid) 0.5 - 1 mg IVP Q4HRS PRN PRN Reason: Pain, Severe Unable to Take PO Stop: 10/13/17 03:33 Last Admin: 10/03/17 08:05 Dose: 1 mg Sodium Chloride (Ns) 1,000 mls @ 0 mls/hr IV EDNOW ONE; Wide Open PRN Reason: Protocol Stop: 10/03/17 00:48 Last Admin: 10/03/17 01:05 Dose: 1,000 mls Sodium Chloride (Ns) 1,000 mls @ 0 mls/hr IV ONCE ONE PRN Reason: Wide Open Stop: 10/03/17 02:22 Last Admin: 10/03/17 02:28 Dose: 1,000 mls Lorazepam (Ativan Injection) 0.5 - 1 mg IVP Q8HRS PRN PRN Reason: Anxiety, Unable to Take PO Stop: 04/01/18 03:33 Last Admin: 10/03/17 08:13 Dose: 0.5 mg Morphine Sulfate (Morphine) 5 mg IVP ONCE ONE Stop: 10/03/17 12:49 Last Admin: 10/03/17 13:17 Dose: 5 mg Morphine Sulfate (Morphine Roll Forming Machine Operator) 0 mg IV PRN PRN; Protocol PRN Reason: Pain, Severe Unable to Take PO Stop: 10/13/17 12:47 Last Admin: 10/03/17 15:04 Dose: 30 mg Promethazine HCl (Phenergan) 12.5 mg IVP ONCE ONE Stop: 10/03/17 00:57 Last Admin: 10/03/17 01:12 Dose: 12.5 mg Departure - Departure Disposition: [facility] Acute Clinical Impression: Pancreatic mass Acute pancreatitis Qualifiers: Pancreatitis type: other Acute pancreatitis complication: unspecified Qualified Code(s): K85.80 - Other acute pancreatitis without necrosis or infection Condition: Good
[2017-10-03] MEDS ORDERED: PROMETHAZINE HCL 25 MG/ML INJ IVP ONE (00:56)
[2017-10-03 01:38] LABS: PLATELET COUNT 257 10^3/uL (150-400)
[2017-10-03 01:43] LABS: INR 1.15 (0.83-1.16); PROTIME(PATIENT) 14.9 SEC (12.0-15.0)
[2017-10-03] MEDS ORDERED: IOPAMIDOL (ISOVUE-300) 100 ML BTL ONE (01:49)
[2017-10-03] MEDS ORDERED: fentaNYL 100 MCG/2 ML INJ IVP ONE (02:24)
[2017-10-03] MEDS ORDERED: fentaNYL 100 MCG/2 ML INJ ONE (02:25)
--- NOTE | 2017-10-03 02:28 | CPEKG ---
Heart Rate: 96 RR Interval: 625 P-R Interval: 168 QRSD Interval: 84 QT Interval: 368 QTC Interval: 465 P [place]: 42 QRS [place]: 7 T Wave [place]: 20 EKG Severity - ABNORMAL ECG - EKG Impression: SINUS RHYTHM EKG Impression: PROBABLE LEFT VENTRICULAR HYPERTROPHY Electronically Signed By: Sánchez Garcia 03-Oct-2017 06:59:32
[2017-10-03] MEDS ORDERED: ACETAMINOPHEN 325 MG TAB PO PRN (03:34)
[2017-10-03] MEDS ORDERED: ONDANSETRON 4 MG/2 ML VIAL IVP PRN (03:34)
[2017-10-03] MEDS ORDERED: LORazepam 2 MG/ML INJ IVP PRN (03:34)
[2017-10-03] MEDS: HYDROmorphONE/DILAUDID 1 MG/ML INJ IVP PRN ×2 (04:06→08:05)
[2017-10-03] MEDS: ENOXAPARIN 40 MG/0.4 ML SYR SC SCH (08:20)
[2017-10-03] MEDS ORDERED: HYDROmorphONE/DILAUDID 1 MG/ML INJ IVP PRN (10:14)
[2017-10-03] MEDS ORDERED: OXYCODONE/APAP 5/325 TAB PO PRN (10:15)
--- NOTE | 2017-10-03 11:11 | GHP ---
[f rep st] HISTORY AND PHYSICAL DATE OF ADMISSION: 10/03/2017 CHIEF COMPLAINT: Abdominal pain. HISTORY: The patient is a 52-year-old female, recently diagnosed with pancreatic cancer in August. At that time no metastases were seen. She was scheduled to get a port this Sunday and to initiate chemotherapy and eventually referred to a surgeon in [place]. She now presents to the hospital with w orsening epigastric pain. She has had continuous abdominal pain due to her pancreatic cancer since p rior to diagnosis; however, it has been gradually worsening and got excruciating and uncontrolled in the last 2 days. She describes a periumbilical pain radiating to the middle of her back. It is cons tant. She has been escalating her narcotics at home without relief. She has had nausea but no vomit ing. She is having normal bowel movements with the use of MiraLAX. She denies any fever. Her urine has looked dark. She describes palpitations and occasional central chest pressure. PAST MEDICAL HISTORY: 1. Pancreatic cancer, recently diagnosed. She sees Dr. Nicole Morataya. 2. H pylori positive found on biopsy at the time of endoscopic ultrasound. Completing a course of a ntibiotics at this time. PAST SURGICAL HISTORY: Pancreatic cyst removal as an . MEDICATIONS: Please see computer record for full detailed list. ALLERGIES: Penicillin. SOCIAL HISTORY: Former smoker. She has not drank any alcohol for the last 2 months. She is recentl y and lives with her 2 children including an autistic son. REVIEW OF SYSTEMS: Complete review of systems obtained. Review of systems negative on constitutiona l, HEENT, GI, pulmonary, cardiovascular, , hematology, skin, muscular, endocrine and psych except f or positives and negative as in HPI. FAMILY HISTORY: Mother with diabetes. Her son has had an episode of pancreatitis. PHYSICAL EXAMINATION: GENERAL: Well-developed, well-nourished female, in no acute distress. VITAL SIGNS: Temperature 37.3, pulse 95, blood pressure 177/102, sat 93% on room air. EYE: Normal conjun ctivae. Pupils round and reactive to light. ENT: Normal ears and nose. Hearing intact. Normal te eth. Oropharynx moist. NECK: Trachea midline. No thyromegaly. CHEST: Normal respiratory effort. LUNGS: Clear to auscultation bilaterally. CARDIOVASCULAR: Regular rate and rhythm. No murmur. No lower extremity edema. ABDOMEN: Soft, nontender. No hepatosplenomegaly. SKIN: Warm, dry, inta ct. No rash. MUSCULOSKELETAL: No cyanosis or clubbing. Strength 5/5 upper and lower extremities. NEURO: Cranial nerves intact. Normal sensation to light touch. PSYCHIATRIC: Alert and oriented x 3. Normal mood and affect. Normal judgment and insight. Normal memory. LABORATORY DATA: White count 4.29, hematocrit 40.5, platelets 257. Sodium 140, potassium 3.5, chlor ehsan 104, bicarb 23, BUN 10, creatinine 0.6, glucose 117. INR is 1.15. Lactate 1.0. Lipase 5193. L FTs are negative. Troponins negative. Urinalysis is negative. EKG viewed by me. My personal interpretation is normal sinus rhythm, LVH, no ST-T wave changes. ASSESSMENT AND PLAN: 1. Acute pancreatitis. I suspect this is obstructive due to her pancreatic mass. Formal CT reading is pending. We will make her n.p.o., pain control with intravenous Dilaudid. 2. Pancreatic cancer. By ER report, new liver metastases are now evident. I spoke with Dr. Waggoner of Oncology and he will see her in consultation. She is scheduled for port placement on Sunday. Dr Alyssa Nair is aware she is now inpatient. 3. Helicobacter pylori positive. She is completing a course of antibiotics to eradicate the Helicob acter pylori. Will continue clarithromycin, Flagyl and proton pump inhibitor as oral intake allows. 4. Hypertension. I suspect this is due to her pain. Will follow closely. 5. Palpitations and chest pressure. My suspicion for cardiac disease is very low. We will watch he r on telemetry in case a run of palpitations occurs while she is inpatient but if it is negative can discontinue it. I suspect she has a high degree of anxiety that is likely contributing. She thought Ativan was a pain control medication as her pain level went down dramatically after Ativan dosing an d it works better for her than the Dilaudid. 6. DVT prophylaxis. She is high risk. Will place her on subcu Lovenox. COR STATUS: Full. ADMISSION STATUS: Will admit to inpatient. Expect greater than 2 midnights required for stabilizati on. /[id number]/MODL
[2017-10-03] MEDS: BISMUTH SUBSALICYLATE 524 MG/30 ML UDL PO PRN (11:50)
[2017-10-03] MEDS ORDERED: morphINE PCA 30 MG/30 ML PCA IV PRN (12:48)
[2017-10-03] MEDS ORDERED: NALOXONE HCL 0.4 MG/ML INJ IVP PRN ×2 (12:48→16:55)
--- NOTE | 2017-10-03 13:42 | GCON ---
[f rep st] CONSULTATION MEDICAL ONCOLOGY FOLLOWUP CONSULTATION DATE OF CONSULTATION: 10/03/2017 REFERRING PHYSICIAN: Zeynep Tan MD REASON FOR CONSULTATION: Ongoing management of pain and pancreatic cancer. RECOMMENDATIONS: 1. I would use a ALLIGATOR TRAPPER at the moment to see if we can get her pain under better control. After pain i s under adequate control, then we will look at changing her to a longer-acting pain medication. 2. I will do an ultrasound of her liver to try to see if the findings on CT are real and are suspici ous for metastatic lesions. If the lesions are suspicious on ultrasound, then a biopsy will be farrah samuels since it would significantly change her staging and her clinical management. 3. The patient will need a port placed for chemotherapy. I have spoken with Dr. Stephany rocha ng this. 4. We will likely need to address the patient's nutritional status. Her oral intake may be substant ially limited because of her pancreatitis, and also may be tenuous with her upcoming treatment for he r pancreatic cancer. Therefore, will need to evaluate enteral feeding versus TPN, at least in the ort term. 5. Will check a CEA and a CA-19-9 while she is in the hospital. ASSESSMENT: This 52-year-old white female with recently diagnosed locally advanced pancreatic cancer presented to the emergency room last night with severe abdominal pain. The pain had been gradually getting worse over the past few days. She could not get adequate relief with the oral pain medicatio n she had at home and presented to the emergency room for further evaluation. Upon presentation in [facility] emergency room, she was found to have a lipase that was quite elevated at 5193. Her albumin was n ormal at 3.5. Her creatinine was normal at 0.6, with a normal total bilirubin of 0.4. Her calcium w as normal at 9.2. White blood cell count was normal at 4.29, with a hemoglobin of 14.4 and a platele t count of 257,000. As part of her evaluation, she had a CT of the abdomen. This showed her pancreatic mass, but also sh owed small, hypodense lesions in her liver that do appear to be new over the past several weeks. The y are all fairly small, however, and it is noted at this time whether this represents metastatic dise ase or some other process. The ultrasound should help us to determine whether these are solid lesion s amenable to biopsy or can be observed. The patient will get her port placed. It may be expeditious to start her chemotherapy while she is i n the hospital here, depending on how her pancreatitis goes. I will also notify Dr. Casarez, who has se en her in the past, of her admission. HISTORY OF PRESENT ILLNESS: Please see assessment. PAST MEDICAL HISTORY: Remarkable for H pylori, which was found at the time of endoscopic ultrasound. She also has a history of nephrolithiasis. PAST SURGICAL HISTORY: Remarkable for a pancreatic cyst removal as an . ALLERGIES: Include penicillin. SOCIAL HISTORY: The patient is a former smoker. She has not had any alcohol over the past couple of months. She is recently . She does have an autistic son. REVIEW OF SYSTEMS: Her review of systems at the moment is primarily remarkable for back pain, abdomi nal distention, abdominal pain, especially in the epigastrium. She has had no recent jaundice and no dark urine at this time. Oral intake has been poor. Ten-system review is otherwise unremarkable. PHYSICAL EXAMINATION: GENERAL: A well-developed, moderately uncomfortable woman. She is alert and able to relate her story. She is accompanied by her mother at the bedside. HEENT: No jaundice. NE CK: No palpable adenopathy. She does complain of some tenderness to palpation in the left side of h er neck, but there is no physical correlate that I can determine at this time. LUNGS: Clear to ausc ultation. CARDIAC: Exam shows a regular rate and rhythm, but does show a systolic murmur heard best at the right upper sternal border. ABDOMEN: Normal bowel sounds. She does have significant tender ness in the epigastrium and to the right of midline. LOWER EXTREMITIES: No edema or swelling or ten derness. Thank you very much for allowing us to participate in this woman's ongoing oncologic care and pain lesvia edmond. /[id number]/MODL
[2017-10-03] MEDS: lamoTRIgine 100 MG TAB PO SCH (15:10)
[2017-10-03] MEDS: metroNIDAZOLE 500 MG TAB PO SCH ×3 (15:11→20:51)
[2017-10-03] MEDS: CLARITHROMYCIN 500 MG TAB PO SCH ×2 (15:11→20:51)
--- NOTE | 2017-10-03 15:12 | GCON ---
[f rep st] CONSULTATION DATE OF CONSULTATION: 10/03/2017 REFERRING PHYSICIAN: Zeynep Tan MD CHIEF COMPLAINT: Abdominal pain. HPI: I am asked to see this patient in consultation by Dr. Tan and Dr. Waggoner for chief complaint of abdominal pain. She is an unfortunate 52-year-old, recently diagnosed with pancreatic cancer las t month when she presented with abdominal pain, underwent an EUS with fine-needle aspirate showing pa ncreatic cancer. Also had H pylori positive, was treated with antibiotics, had poor p.o. intake with nausea and worsening abdominal pain that she describes in the center of her abdomen radiating to the back, feels like ground glass, and presented to the emergency room. Now has elevated lipase. There has been no melena. No hematemesis. She is passing gas. ALLERGIES: Penicillin. MEDICATIONS ON ADMISSION: Include Tums, Pepto-Bismol, Compazine, MiraLAX, omeprazole, tramadol, Xana x, sucralfate, erythromycin, and metronidazole. PAST MEDICAL HISTORY: 1. Pancreatic cancer diagnosed August 2017. 2. H pylori positive. Started treatment 1 week ago. PAST SURGICAL HISTORY: Pancreatic cyst removed as infant. SOCIAL HISTORY: Former smoker. FAMILY HISTORY: Notable for pancreatitis in her son due to distal pancreatic duct abnormality. REVIEW OF SYSTEMS: I performed a complete review of systems which is negative except for the pertine nt positives and negatives noted above in the HPI. PHYSICAL EXAM: VITAL SIGNS: Afebrile at 36.8, BP 164/104, pulse 95. CONSTITUTIONAL: She is alert and oriented. EYES: No scleral icterus. HEENT: No oral lesions. CARDIOVASCULAR: Regular rhythm. CHEST: Clear to auscultation. ABDOMEN: Positive bowel sounds. Midline scar. Mild distention. Tender to palpation epigastric area. NEUROLOGIC: Nonfocal. SKIN: No rashes. No ecchymoses. LABORATORY DATA: BUN creatinine 10 and 0.6 with normal chemistries, alk phos 76, AST 33, ALT 51, pro time 14.9. Lipase is elevated at 5193. White count normal at 4, hematocrit 40.5, platelets 257. IMAGING: CT scan shows enlarging mass of the pancreatic head and uncinate process, possible mets to the liver. ASSESSMENT: 1. Pancreatitis, presumed from underlying tumor. 2. Abdominal pain in part from her pancreatitis. However, patient clearly has had pain prior to thi s event from her underlying cancer, most likely. Also, is Helicobacter pylori positive and has been on a week of treatment. At this point, we will not be able to take her antibiotics until taking p.o. well. PLAN: 1. Recommend keep n.p.o. and can hold her H pylori antibiotics, including her clarithromycin and Fla gyl until taking p.o. again. 2. Recommend IV fluids with aggressive IV fluid hydration. 3. Pain control as you are doing. 4. Nutrition. Would prefer to use enteral route, such as Dobbhoff tube feeds, over IV nutrition to reduce risk of infectious complications. Will follow. Thanks for the consult. Sincerely, /[id number]/FRANCESCAL
[2017-10-03] MEDS: SUCRALFATE 1 GM/10 ML UDCUP PO SCH ×3 (15:17→20:51)
[2017-10-03] MEDS: hydrALAZINE 20 MG/ML VIAL IVP PRN (15:35)
--- NOTE | 2017-10-03 15:40 | ECHO ---
[email or web address] [address] [address] Main: [phone] Fax: Transthoracic Echocardiogram Name: NAVI SAMUEL MR#: [id number] Study Date: 10/03/2017 Study Time: 02:56 PM Date of : 1965 Age: 52 year(s) Height: 160 cm (63 in.) Weight: 66.23 kg (146 lb.) BSA: 1.69 m2 Gender: Female Examination: Echo Indication: New systolic murmur RUSB/new dx of pancreatic CA Image Quality: Contrast: Requested by: Gino Waggoner BP: 164 mmHg/104 mmHg Heart Rate: Rhythm: Indication: New systolic murmur RUSB/new dx of pancreatic CA Procedure Staff Pourer Crane Ladle: Shannon Zazueta Physician: Bimal Heller Requesting Provider: Conclusions: Global hypercontractility of the left ventricle. EF is 70 %. Trivial mitral valve regurgitation. Trivial tricuspid valve regurgitation. Measurements: Chambers Valvular Assessment AV/MV Valvular Assessment TV/PV Normal Normal Normal Name Value Range Name Value Range Name Value Range Ao Marleny (2D): 2.8 cm (1.4 cm-2.6 AV Vmax: 1.27 m/s (1 m/s-1.7 cm) m/s) IVSd (2D): 0.8 cm (0.6 cm-1.1 AV maxP mmHg ( - ) cm) AV meanP mmHg ( - ) LVDd (2D): 4.2 cm (3.9 cm-5.3 MV E Vmax: 0.63 m/s ( - ) cm) MV A Vmax: 0.73 m/s ( - ) LVDs (2D): 2.7 cm (2.1 cm-4 MV E/A: 0.86 ( - ) cm) LVPWd (2D): 0.8 cm ( - ) LVEF (MOD4): 70 % (>=55 %) Continued Measurements: Chambers Valvular Assessment AV/MV Name Value Name Value LADs Lon.5 cm MV E/E' Septal: 9.10 LA Area: 15.7 cm2 MV E/E' Lateral: 7.30 Patient: NAVI SAMUEL Study Date: 10/03/2017 Page 1 of 2 02:56 PM Findings: Left Ventricle: Normal size left ventricle. No LV hypertrophy. Global hypercontractility of the left ventricle. EF is 70 %. No regional wall motion abnormality. Right Ventricle: Normal size right ventricle. Left Atrium: The left atrium is normal in size. Right Atrium: The right atrium is normal in size. Mitral Valve: The mitral valve is normal in appearance and function. Trivial mitral valve regurgitation. Aortic Valve: The aortic valve is normal in appearance and function. Tricuspid Valve: The tricuspid valve is normal in appearance and function. Trivial tricuspid valve regurgitation. Pulmonic Valve: The pulmonic valve is normal in appearance and function. Aorta: The aorta is normal. Pericardium: No pericardial effusion. (No Signature Object) Patient: NAVI SAMUEL Study Date: 10/03/2017 Page 2 of 2 02:56 PM [id number]
[2017-10-03] MEDS: BISACODYL 5 MG EC TAB PO PRN (19:34)
[2017-10-03] MEDS: morphINE PCA 30 MG/30 ML PCA IV PRN (19:41)
[2017-10-03] MEDS: ALPRAZolam 0.25 MG TAB PO PRN (20:51)
[2017-10-03] MEDS: PANTOPRAZOLE SODIUM 40 MG TAB PO SCH (20:51)
[2017-10-03] MEDS: NS 1,000 ML IV SCH (21:50)
[2017-10-04] MEDS: NS 1,000 ML IV SCH (02:03)
[2017-10-04] MEDS: morphINE PCA 30 MG/30 ML PCA IV PRN ×3 (04:13→20:10)
[2017-10-04] MEDS: SUCRALFATE 1 GM/10 ML UDCUP PO SCH ×4 (04:37→20:14)
[2017-10-04] MEDS: 1/2 NS 1,000 ML IV SCH ×3 (04:38→20:09)
[2017-10-04 06:08] LABS: PLATELET COUNT 234 10^3/uL (150-400)
--- NOTE | 2017-10-04 10:53 | SOAPPROG ---
GOLD Progress Note Assessment/Plan: Assessment: - Acute pancreatitis - pain is improved with AUTOMOTIVE TITLE CLERK. Lipase is improving. - Pancreatic CA - locally advanced with possible new liver lesion - Liver lesion - 1.8cm dome of liver near IVC. Difficult spot to biopsy percutaneously. I'll discuss with Dr. Nair the feasibility of obtaining a laparoscopic bx. - cardiac murmur - echo ok. no significant valvular heart disease or vegetations. I discussed the above with the patient Plan: Continue AUTOMOTIVE TITLE CLERK Try clear liquids Port/biopsy tomorrow Chemo either during this admission or shortly after discharge. Subjective: Happy with pain control at the moment. Wants to eat. Objective: Vital Signs Temp Pulse Resp BP Pulse Ox 36.8 C 103 H 16 166/93 H 98 10/04/17 08:08 10/04/17 10:17 10/04/17 10:17 10/04/17 10:17 10/04/17 10:17 Laboratory Results 10/04/17 04:41 10/04/17 04:41 10/02/17 10/03/17 10/04/17 23:59 23:59 23:59 Intake Total 2481.2 2067.6 Balance 2481.2 2067.6 PT 14.9 SEC (12.0-15.0) 10/03/17 01:30 INR 1.15 (0.83-1.16) 10/03/17 01:30 Physical Exam - Physical Exam General Appearance: alert, mild distress Respiratory: lungs clear Cardiac/Chest: regular rate, rhythm Abdomen: other (Tender epigastric area and RUQ without rebound tenderness) Neuro/Psych: alert, oriented x 3, No depressed affect ICD10 Worksheet Patient Problems: Problems Problem Status Onset Acute pancreatitis Acute Pancreatic mass Acute Abdominal pain Acute
[2017-10-04] MEDS: lamoTRIgine 100 MG TAB PO SCH (11:06)
[2017-10-04] MEDS: metroNIDAZOLE 500 MG TAB PO SCH ×3 (11:06→21:27)
[2017-10-04] MEDS: CLARITHROMYCIN 500 MG TAB PO SCH ×2 (11:06→20:13)
[2017-10-04] MEDS: ENOXAPARIN 40 MG/0.4 ML SYR SC SCH (11:07)
[2017-10-04] MEDS: PANTOPRAZOLE SODIUM 40 MG TAB PO SCH ×2 (11:19→20:14)
--- NOTE | 2017-10-04 12:29 | SOAPPROG ---
SOAP Progress Note Assessment/Plan: Assessment: Pancreatitis in setting of pancreatic cancer. Overall improving but still with pain H. pylori treatment on hold while NPO Plan: Overall improving OK to try sip and ice chips today 10/04/17 12:26 Subjective: CC abd pain Still with significant pain but better with pain meds Objective: Vital Signs Temp Pulse Resp BP Pulse Ox 36.8 C 93 16 158/99 H 97 10/04/17 12:03 10/04/17 12:03 10/04/17 12:03 10/04/17 12:03 10/04/17 12:03 Laboratory Results 10/04/17 04:41 10/04/17 04:41 10/03/17 10/04/17 10/05/17 05:59 05:59 05:59 Intake Total 1999 2548.8 Balance 1999 2548.8 PT 14.9 SEC (12.0-15.0) 10/03/17 01:30 INR 1.15 (0.83-1.16) 10/03/17 01:30 Physical Exam - Physical Exam General Appearance: alert Respiratory: lungs clear Cardiac/Chest: regular rate, rhythm Abdomen: soft ICD10 Worksheet Patient Problems: Problems Problem Status Onset Acute pancreatitis Acute Pancreatic mass Acute Abdominal pain Acute
[2017-10-04] MEDS: hydrALAZINE 20 MG/ML VIAL IVP PRN (15:28)
--- NOTE | 2017-10-04 16:42 | HOSPPROG ---
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 Nair -needs biopsy of liver lesion - this would change staging -consider start chemo as inpatient * H. Pylori gastritis -Biaxin, Flagyl, PPI * HTN -? due to pain -prn IV hydralazine Subjective: Pain control inadequate, morphine PARISH VISITOR settings increased with good result Objective: Vital Signs Temp Pulse Resp BP Pulse Ox 36.6 C 102 H 16 163/103 H 94 10/04/17 16:19 10/04/17 16:19 10/04/17 16:19 10/04/17 16:19 10/04/17 16:19 Laboratory Results 10/04/17 04:41 10/04/17 04:41 10/03/17 10/04/17 10/05/17 05:59 05:59 05:59 Intake Total 1999 2548.8 Balance 1999 2548.8 PT 14.9 SEC (12.0-15.0) 10/03/17 01:30 INR 1.15 (0.83-1.16) 10/03/17 01:30 - Physical Exam Constitutional: no apparent distress, appears nourished, not in pain Cardiovascular: regular rate and rhythym, no murmur, rub, or gallop Respiratory: no respiratory distress, no rales or rhonchi, clear to auscultation Gastrointestinal: normoactive bowel sounds, soft, non-tender abdomen, no palpable masses Skin: no rashes or abrasions, no fluctuance, no induration Neurologic: AAOx3, sensation intact bilaterally Psychiatric: interacting appropriately, not anxious, not encephalopathic, thought process linear ICD10 Worksheet Patient Problems: Problems Problem Status Onset Acute pancreatitis Acute Pancreatic mass Acute Abdominal pain Acute
--- NOTE | 2017-10-04 16:57 | ASMTCMCOM ---
CM Note CM Note Notes: Pt with recent dx of pancreatic ca admitted for pancreatitis. Pt's DC needs are unclear at this time. CM will continue to follow. Date Signed: 10/04/2017 04:54 PM Electronically Signed By:Sharmila Srivastava LCSW
[2017-10-04] MEDS: ALPRAZolam 0.25 MG TAB PO PRN (21:27)
--- NOTE | 2017-10-04 21:40 | SOAPPROG ---
GOLD Progress Note Assessment/Plan: Assessment: 52 year old with pancreatic cancer admitted for pancreatitis much improved from when I saw her in the office Will proceed with port tomorrow and laparoscopic liver biopsy Risks and benefits discussed S: Pain improved Plan: 10/04/17 21:38 Objective: Vital Signs Temp Pulse Resp BP Pulse Ox 36.8 C 103 H 16 139/94 H 95 10/04/17 20:16 10/04/17 20:16 10/04/17 20:16 10/04/17 20:16 10/04/17 20:16 Laboratory Results 10/04/17 04:41 10/04/17 04:41 10/03/17 10/04/17 10/05/17 05:59 05:59 05:59 Intake Total 1999 2548.8 1590.1 Balance 1999 2548.8 1590.1 PT 14.9 SEC (12.0-15.0) 10/03/17 01:30 INR 1.15 (0.83-1.16) 10/03/17 01:30 ICD10 Worksheet Patient Problems: Problems Problem Status Onset Acute pancreatitis Acute Pancreatic mass Acute Abdominal pain Acute
[2017-10-05] MEDS: 1/2 NS 1,000 ML IV SCH (04:20)
[2017-10-05] MEDS: SUCRALFATE 1 GM/10 ML UDCUP PO SCH ×4 (04:26→21:14)
[2017-10-05 05:23] LABS: PLATELET COUNT 234 10^3/uL (150-400)
[2017-10-05] MEDS: morphINE PCA 30 MG/30 ML PCA IV PRN ×2 (06:11→18:58)
[2017-10-05] MEDS ORDERED: BUPIVACAINE 0.5% 30 ML SDV ONE (07:59)
--- NOTE | 2017-10-05 08:30 | SOAPPROG ---
SOAP Progress Note Assessment/Plan: Assessment/Plan: 52yo F with pancreatic cancer, admitted with pancreatitis To OR today for power port placement and lap liver biopsy Consent signed in chart NPO Hold lovenox Antibiotics OCTOR Objective: Vital Signs Temp Pulse Resp BP Pulse Ox 36.7 C 98 16 110/88 H 93 10/05/17 05:35 10/05/17 05:35 10/05/17 05:35 10/05/17 05:35 10/05/17 05:35 Laboratory Results 10/05/17 04:58 10/05/17 04:58 10/04/17 10/05/17 10/06/17 05:59 05:59 05:59 Intake Total 2548.8 2989.1 Balance 2548.8 2989.1 PT 14.9 SEC (12.0-15.0) 10/03/17 01:30 INR 1.15 (0.83-1.16) 10/03/17 01:30 ICD10 Worksheet Patient Problems: Problems Problem Status Onset Acute pancreatitis Acute Pancreatic mass Acute Abdominal pain Acute
[2017-10-05] MEDS: metroNIDAZOLE 500 MG TAB PO SCH ×3 (08:37→21:15)
[2017-10-05] MEDS: CLARITHROMYCIN 500 MG TAB PO SCH ×2 (08:37→21:15)
[2017-10-05] MEDS: PANTOPRAZOLE SODIUM 40 MG TAB PO SCH ×2 (08:37→21:15)
[2017-10-05] MEDS ORDERED: VANCOMYCIN HCL/NORMAL SALINE 250 ML IV ONE (09:00)
[2017-10-05] MEDS ORDERED: LR 1,000 ML IV ONE (09:05)
[2017-10-05] MEDS ORDERED: MIDAZOLAM 2 MG/2 ML VIAL IVP ONE (09:39)
--- NOTE | 2017-10-05 09:43 | PDANEPAE ---
ANE Past Medical History - Cardiovascular History Hx Hypertension: No Hx Arrhythmias: No Hx Chest Pain: No Hx Coronary Artery / Peripheral Vascular Disease: No Hx CHF / Valvular Disease: No Hx Palpitations: No - Pulmonary History Hx COPD: No Hx Asthma/Reactive Airway Disease: No Hx Recent Upper Respiratory Infection: No Hx Oxygen in Use at Home: No Hx Sleep Apnea: No Sleep Apnea Screening Result - Last Documented: Negative - Endocrine History Hx Diabetes: No Hypothyroid: No Hyperthyroid: No Obesity: no - GI History Hx Gastrointestinal Disorders: Yes - Chronic Pain History Chronic Pain: No ANE Review of Systems Review of Systems: - Exercise capacity METS (RN): 5 METS ANE Patient History - Allergies Allergies/Adverse Reactions: Penicillins Allergy (Verified 10/03/17 10:05) Hives - Home Medications Home Medications: Omeprazole [Prilosec 20 mg] 40 mg PO BID 09/14/17 [Last Taken 10/02/17 09:00] ALPRAZolam [Xanax 0.25 MG (*)] 0.25 mg PO HS PRN 10/03/17 [Last Taken 10/02/17] Bismuth Subsalicylate [Pepto-Bismol oral liquid (*)] 15 ml PO Q3 PRN 10/03/17 [ Last Taken Unknown] Calcium Carbonate [Tums 500MG (*)] 500 mg PO DAILY PRN 10/03/17 [Last Taken Unknown] Clarithromycin [Biaxin (*)] 500 mg PO BID 10/03/17 [Last Taken 10/02/17 22:00] Prochlorperazine Maleate [Compazine 10mg (*)] 10 mg PO Q4-6PRN PRN 10/03/17 [ Last Taken 10/02/17] Sucralfate [Carafate 1gm/10ml Oral Liquid (*)] 1 gm PO QID 10/03/17 [Last Taken 10/02/17] lamoTRIgine [LamICTAL 100 MG (*)] 100 mg PO DAILY 10/03/17 [Last Taken 10/02/17] metroNIDAZOLE [Flagyl 500 mg (*)] 500 mg PO TID 10/03/17 [Last Taken 10/02/17 22 :00] oxyCODONE/APAP 5/325 [Percocet 5/325 (*)] 1 tab PO Q4HRS PRN 10/03/17 [Last Taken 10/02/17 22:45] - NPO status NPO Since - Liquids (Date): 10/04/17 NPO Since - Liquids (Time): 23:59 NPO Since - Solids (Date): 10/04/17 NPO Since - Solids (Time): 23:00 - Anes Hx Anes Hx: no prior problems - Smoking Hx Smoking Status: Former smoker - Alcohol Use Alcohol Use: Rarely - Family Anes Hx Family Anes Hx: neg - N/A ANE Labs/Vital Signs - Labs Result Diagrams: 10/05/17 04:58 10/05/17 04:58 - Vital Signs Blood Pressure: 139/88 Heart Rate: 96 Respiratory Rate: 16 O2 Sat (%): 95 Height: 160.02 cm Weight: 65.499 kg ANE Physical Exam - Airway Neck exam: FROM Mallampati Score: Class 2 Mouth exam: normal dental/mouth exam - Pulmonary Pulmonary: no respiratory distress, no rales or rhonchi, clear to auscultation - Cardiovascular Cardiovascular: regular rate and rhythym, no murmur, rub, or gallop - ASA Status ASA Status: II ANE Anesthesia Plan Anesthesia Plan: general endotracheal anesthesia Total IV Anesthesia: No
[2017-10-05] MEDS ORDERED: REMIFENTANIL HCL 1 MG VIAL ONE ×2 (09:58→12:08)
[2017-10-05] MEDS ORDERED: ROCURONIUM 50 MG/5 ML VIAL ONE (09:59)
[2017-10-05] MEDS ORDERED: PROPOFOL/EMULSION 500 MG/50 ML BOTTLE IV ONE ×2 (09:59→12:08)
[2017-10-05] MEDS ORDERED: DEXAMETHASONE 4 MG/ML VIAL ONE (09:59)
[2017-10-05] MEDS ORDERED: ONDANSETRON 4 MG/2 ML VIAL ONE (09:59)
[2017-10-05] MEDS ORDERED: fentaNYL 100 MCG/2 ML INJ ONE (09:59)
[2017-10-05] MEDS ORDERED: LIDOCAINE 2% 5 ML SDV ONE (10:00)
[2017-10-05] MEDS ORDERED: PROPOFOL 200 MG/20 ML VIAL ONE (10:04)
[2017-10-05] MEDS ORDERED: ONDANSETRON 4 MG/2 ML VIAL IVP PRN (10:38)
[2017-10-05] MEDS ORDERED: ACETAMINOPHEN 500 MG TAB PO PRN (10:38)
[2017-10-05] MEDS ORDERED: LR 500 ML IV PRN (10:38)
[2017-10-05] MEDS ORDERED: NALOXONE HCL 0.4 MG/ML INJ IVP PRN ×2 (10:38→14:17)
[2017-10-05] MEDS ORDERED: HYDROCODONE/APAP 5/325 TAB PO PRN (10:38)
[2017-10-05] MEDS ORDERED: fentaNYL 100 MCG/2 ML INJ IVP PRN (10:38)
--- NOTE | 2017-10-05 11:44 | SOAPPROG ---
SOAP Progress Note Assessment/Plan: Assessment: Pancreatitis in setting of pancreatic cancer. Overall improving but still with pain H. pylori treatment on hold while NPO Plan: Overall improving OK to try sip and ice chips today 10/04/17 12:26 10/05/17 11:43 Patient in OR at this time fro liver biopsy and port placement. Dr. Davenport to assume service tomorrow Objective: Vital Signs Temp Pulse Resp BP Pulse Ox 36.9 C 96 16 139/88 H 95 10/05/17 08:38 10/05/17 09:51 10/05/17 09:51 10/05/17 09:51 10/05/17 09:51 Laboratory Results 10/05/17 04:58 10/05/17 04:58 10/04/17 10/05/17 10/06/17 05:59 05:59 05:59 Intake Total 2548.8 2989.1 Balance 2548.8 2989.1 PT 14.9 SEC (12.0-15.0) 10/03/17 01:30 INR 1.15 (0.83-1.16) 10/03/17 01:30 ICD10 Worksheet Patient Problems: Problems Problem Status Onset Acute pancreatitis Acute Pancreatic mass Acute Abdominal pain Acute
--- NOTE | 2017-10-05 12:19 | POSTOPPROG ---
Post Op Note Date of Operation: 10/05/17 Surgeon: Stephany Nair Anesthesiologist: santi Anesthesia: GET(General Endotracheal) Pre-op Diagnosis: pancreatic ca Post-op Diagnosis: same Indication: 52yo F c pancreatic cancer Procedure: R US-guided IJ port placement c neck exploration, lap liver bx x2 Findings: 2 small liver lesions, small collateral vein by IJ repaired Inf/Abcess present in the surg proc area at time of surgery?: No EBL: 50-100 Specimen(s): liver biopsy - frozen and permanent
[2017-10-05] MEDS ORDERED: LABETALOL HCL 5 MG/ML 20 ML MDV ONE (13:57)
[2017-10-05] MEDS ORDERED: LABETALOL HCL 5 MG/ML 20 ML MDV IVP PRN (14:17)
[2017-10-05] MEDS ORDERED: LABETALOL HCL 5 MG/ML 20 ML MDV IV ONE (14:30)
--- NOTE | 2017-10-05 15:21 | ASMTCMCOM ---
CM Note CM Note Notes: Pt has been in surgery all afternoon for port placement and liver biopsy. Pt's DC needs TBD. She may benefit from home care and/or community-based palliative care. Her mother asked that a letter to the airlines be written for mother to change [place] so that she continue to care for her dtr. Letter provided. Pt also needs a letter but has been in surgery so details will need to be provided by pt later today or tomorrow. CM will continue to follow. Date Signed: 10/05/2017 03:20 PM Electronically Signed By:Sharmila Srivastava LCSW
[2017-10-05] MEDS: D5W 1/2 NS 1,000 ML IV SCH ×2 (15:33→23:53)
[2017-10-05] MEDS: lamoTRIgine 100 MG TAB PO SCH (15:35)
--- NOTE | 2017-10-05 15:40 | HOSPPROG ---
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 tumor * Pancreatic cancer -s/p port placement with Dr. Nair -s/p biopsy of liver lesion - path pending -consider start chemo as inpatient * H. Pylori gastritis -Biaxin, Flagyl, PPI * HTN -improved with better pain control Subjective: Surgery went well. IV morphine working well at current levels. Very hungry, wants cheeseburger, but short term goal is broth. Objective: Vital Signs Temp Pulse Resp BP Pulse Ox 37.0 C 98 10 L 143/94 H 97 10/05/17 14:00 10/05/17 14:02 10/05/17 14:25 10/05/17 14:20 10/05/17 14:25 Laboratory Results 10/05/17 04:58 10/05/17 04:58 10/04/17 10/05/17 10/06/17 05:59 05:59 05:59 Intake Total 2548.8 2989.1 1500 Balance 2548.8 2989.1 1500 PT 14.9 SEC (12.0-15.0) 10/03/17 01:30 INR 1.15 (0.83-1.16) 10/03/17 01:30 - Physical Exam Constitutional: no apparent distress, appears nourished, not in pain Cardiovascular: regular rate and rhythym, no murmur, rub, or gallop Respiratory: no respiratory distress, no rales or rhonchi, clear to auscultation Gastrointestinal: normoactive bowel sounds, soft, non-tender abdomen, no palpable masses Skin: no rashes or abrasions, no fluctuance, no induration Neurologic: AAOx3, sensation intact bilaterally Psychiatric: interacting appropriately, not anxious, not encephalopathic, thought process linear ICD10 Worksheet Patient Problems: Problems Problem Status Onset Acute pancreatitis Acute Pancreatic mass Acute Abdominal pain Acute
[2017-10-05] MEDS: ALPRAZolam 0.25 MG TAB PO PRN (21:15)
[2017-10-06] MEDS: morphINE PCA 30 MG/30 ML PCA IV PRN ×3 (04:04→20:48)
[2017-10-06] MEDS: SUCRALFATE 1 GM/10 ML UDCUP PO SCH ×4 (06:00→21:26)
[2017-10-06] MEDS: D5W 1/2 NS 1,000 ML IV SCH (08:34)
[2017-10-06] MEDS: metroNIDAZOLE 500 MG TAB PO SCH ×3 (08:36→21:26)
[2017-10-06] MEDS: CLARITHROMYCIN 500 MG TAB PO SCH ×2 (08:36→21:26)
[2017-10-06] MEDS: lamoTRIgine 100 MG TAB PO SCH (08:36)
[2017-10-06] MEDS: PANTOPRAZOLE SODIUM 40 MG TAB PO SCH ×2 (08:36→21:26)
--- NOTE | 2017-10-06 11:53 | SOAPPROG ---
SOAP Progress Note Assessment/Plan: Assessment/Plan: 1. Acute pancreatitis - pain controlled w CARDIAC SONOGRAPHER; lipase trending down need to try to transition to po in next day or so in anticipation of dc 2. Pancreatic ca - liver Bx+ from laparoscopy 05/05/2017 Plan FOLFIRINOX in hospital tomorrow or Sunday 3. Heart murmur - Echo ok 4. DVT ppx - resume lovenox for high risk 10/06/17 11:53 Subjective: No acute events felling well tolerated clears Objective: Vital Signs Temp Pulse Resp BP Pulse Ox 36.4 C 90 18 139/82 H 95 10/06/17 07:52 10/06/17 10:00 10/06/17 10:00 10/06/17 10:00 10/06/17 10:00 Laboratory Results 10/05/17 04:58 10/06/17 04:13 10/05/17 10/06/17 10/07/17 05:59 05:59 05:59 Intake Total 2989.1 2313.5 754 Balance 2989.1 2313.5 754 PT 14.9 SEC (12.0-15.0) 10/03/17 01:30 INR 1.15 (0.83-1.16) 10/03/17 01:30 Gen - alert and oriented HEENT - anicteric CV - RRR, soft systolic murmur Chest - CTA Abd - distended, BS+, laparoscopic sites c/d/i ect - no sig edema ICD10 Worksheet Patient Problems: Problems Problem Status Onset Acute pancreatitis Acute Pancreatic mass Acute Abdominal pain Acute
[2017-10-06] MEDS: ENOXAPARIN 40 MG/0.4 ML SYR SC SCH (12:10)
--- NOTE | 2017-10-06 12:15 | SOAPPROG ---
SOAP Progress Note Assessment/Plan: Assessment:Plan: 1) pancreatitis - resolving , no pain, tolerating liquids w/o issue, lipase significantly decreased - advance diet a s tolerated 2) panc cancer - prob liver met , chemo as per oncology will sign off, recall if needed 10/06/17 12:15 Subjective: cc-pancreatitis secondary to panc cancer happy that abdo is feeling well, calling tobacco stripper hand about chemo Objective: Vital Signs Temp Pulse Resp BP Pulse Ox 36.8 C 85 18 129/77 H 94 10/06/17 12:00 10/06/17 12:00 10/06/17 12:00 10/06/17 12:00 10/06/17 12:00 Laboratory Results 10/05/17 04:58 10/06/17 04:13 10/05/17 10/06/17 10/07/17 05:59 05:59 05:59 Intake Total 2989.1 2313.5 754 Balance 2989.1 2313.5 754 PT 14.9 SEC (12.0-15.0) 10/03/17 01:30 INR 1.15 (0.83-1.16) 10/03/17 01:30 A+Ox3 CTA S1S2 +BS,s oft nt Laboratory Tests 10/03/17 10/04/17 10/06/17 01:30 04:41 04:13 Lipase 5193 H 2849 H 670 H ICD10 Worksheet Patient Problems: Problems Problem Status Onset Acute pancreatitis Acute Pancreatic mass Acute Abdominal pain Acute
--- NOTE | 2017-10-06 14:38 | SOAPPROG ---
SOAP Progress Note Assessment/Plan: Assessment: STATUS POST LAP LIVER BIOPSY AND PORT PLACEMENT/WOUND OKAY/AFEBRILE REVEALS GRADE WITH PAIN MEDICINE/PANCREATITIS SEEMS TO BE RESOLVING Plan: CONTINUE PRESENT ORDERS 10/06/17 14:37 Objective: Vital Signs Temp Pulse Resp BP Pulse Ox 36.8 C 88 17 131/89 H 93 10/06/17 12:00 10/06/17 13:57 10/06/17 13:57 10/06/17 13:57 10/06/17 13:57 Laboratory Results 10/05/17 04:58 10/06/17 04:13 10/05/17 10/06/17 10/07/17 05:59 05:59 05:59 Intake Total 2989.1 2313.5 1154 Balance 2989.1 2313.5 1154 PT 14.9 SEC (12.0-15.0) 10/03/17 01:30 INR 1.15 (0.83-1.16) 10/03/17 01:30 ICD10 Worksheet Patient Problems: Problems Problem Status Onset Acute pancreatitis Acute Pancreatic mass Acute Abdominal pain Acute
--- NOTE | 2017-10-06 15:46 | HOSPPROG ---
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 tumor * Pancreatic cancer - with liver mets -s/p port placement with Dr. Nair -start chemo as inpatient * H. Pylori gastritis -Biaxin, Flagyl, PPI * HTN -improved with better pain control Subjective: Pain is well controlled on IV morphine, want to transition to PO tomorrow as this is the first time she has been pain free in 3 months Objective: Vital Signs Temp Pulse Resp BP Pulse Ox 36.8 C 88 17 131/89 H 93 10/06/17 12:00 10/06/17 13:57 10/06/17 13:57 10/06/17 13:57 10/06/17 13:57 Laboratory Results 10/05/17 04:58 10/06/17 04:13 10/05/17 10/06/17 10/07/17 05:59 05:59 05:59 Intake Total 2989.1 2313.5 1154 Balance 2989.1 2313.5 1154 PT 14.9 SEC (12.0-15.0) 10/03/17 01:30 INR 1.15 (0.83-1.16) 10/03/17 01:30 - Physical Exam Constitutional: no apparent distress, appears nourished, not in pain Cardiovascular: regular rate and rhythym, no murmur, rub, or gallop Respiratory: no respiratory distress, no rales or rhonchi, clear to auscultation Gastrointestinal: normoactive bowel sounds, soft, non-tender abdomen, no palpable masses Skin: no rashes or abrasions, no fluctuance, no induration Neurologic: AAOx3, sensation intact bilaterally Psychiatric: interacting appropriately, not anxious, not encephalopathic, thought process linear ICD10 Worksheet Patient Problems: Problems Problem Status Onset Acute pancreatitis Acute Pancreatic mass Acute Abdominal pain Acute
--- NOTE | 2017-10-06 16:21 | ASMTCMCOM ---
BRUNO Note CM Note Notes: CM provided letters to pt for herself and her daughter for their airline reservations. Copies in chart. Date Signed: 10/06/2017 04:20 PM Electronically Signed By:ALFRED Elam
[2017-10-06] MEDS: BISACODYL 5 MG EC TAB PO PRN (23:31)
[2017-10-06] MEDS: POLYETHYLENE GLYCOL 3350 17 GM PKT PO PRN (23:31)
[2017-10-06] MEDS: ALPRAZolam 0.25 MG TAB PO PRN (23:31)
[2017-10-07] MEDS: SUCRALFATE 1 GM/10 ML UDCUP PO SCH ×4 (05:51→20:52)
[2017-10-07] MEDS ORDERED: PHARMACY PAIN CONSULT 1 EA MISC SCH (08:15)
[2017-10-07] MEDS: lamoTRIgine 100 MG TAB PO SCH (08:33)
[2017-10-07] MEDS: hydrALAZINE 20 MG/ML VIAL IVP PRN (08:34)
[2017-10-07] MEDS: CLARITHROMYCIN 500 MG TAB PO SCH ×2 (08:35→20:52)
[2017-10-07] MEDS: metroNIDAZOLE 500 MG TAB PO SCH ×3 (08:35→21:41)
[2017-10-07] MEDS: PANTOPRAZOLE SODIUM 40 MG TAB PO SCH ×2 (08:35→20:53)
[2017-10-07] MEDS: ENOXAPARIN 40 MG/0.4 ML SYR SC SCH (08:37)
[2017-10-07] MEDS: BISMUTH SUBSALICYLATE 524 MG/30 ML UDL PO PRN (08:38)
[2017-10-07] MEDS: morphINE PCA 30 MG/30 ML PCA IV PRN ×3 (09:27→23:15)
[2017-10-07] MEDS: POLYETHYLENE GLYCOL 3350 17 GM PKT PO PRN (09:35)
[2017-10-07] MEDS: METOCLOPRAMIDE 10 MG TAB PO PRN (09:37)
[2017-10-07 10:25] LABS: PLATELET COUNT 281 10^3/uL (150-400)
--- NOTE | 2017-10-07 10:41 | SOAPPROG ---
SOAP Progress Note Assessment/Plan: Assessment/Plan: 1. Acute pancreatitis - much improved pain controlled w RESPIRATORY CARE PRACTITIONER; lipase trending down need to try to transition to oral pain meds in next day or so in anticipation of dc 2. Pancreatic ca - liver Bx+ from laparoscopy 05/05/2017 Plan FOLFIRINOX today labs and physical exam adequate for treatment; pt feeling very well and anxious to start chemo teaching done 3. Heart murmur - Echo ok 4. DVT ppx - lovenox 10/06/17 11:53 10/07/17 10:38 Subjective: No acute events some belching and flatus but reports feeling very well today without pain Objective: Vital Signs Temp Pulse Resp BP Pulse Ox 36.6 C 83 16 150/92 H 96 10/07/17 08:10 10/07/17 10:05 10/07/17 10:05 10/07/17 10:05 10/07/17 10:05 Laboratory Results 10/07/17 10:15 10/06/17 10/07/17 10/08/17 05:59 05:59 05:59 Intake Total 2313.5 3777 Balance 2313.5 3777 PT 14.9 SEC (12.0-15.0) 10/03/17 01:30 INR 1.15 (0.83-1.16) 10/03/17 01:30 Gen - NAD HEENT - anicteric CV - RRR Abd - soft, NT, BS+, laproscopic wounds c/d/i (healing very well) Ext - no sig edema ICD10 Worksheet Patient Problems: Problems Problem Status Onset Acute pancreatitis Acute Pancreatic mass Acute Abdominal pain Acute
[2017-10-07] MEDS ORDERED: fentaNYL 75 MCG PATCH TD SCH (12:30)
[2017-10-07] MEDS ORDERED: PROTOCOL POTASSIUM 1 DOSE MISC PRN (15:38)
--- NOTE | 2017-10-07 15:42 | SOAPPROG ---
GOLD Progress Note Assessment/Plan: Assessment: STATUS POST LAP LIVER BIOPSY AND PORT PLACEMENT/WOUND OKAY/AFEBRILE REVEALS GRADE WITH PAIN MEDICINE/PANCREATITIS SEEMS TO BE RESOLVING Plan: CONTINUE PRESENT ORDERS 10/06/17 14:37 10/07/17 15:42 DOING BETTER TODAY / LIPASE 2000 / PORT SITE OKAY / ABDOMEN SOFT WOUND OKAY / AFEBRILE Objective: Vital Signs Temp Pulse Resp BP Pulse Ox 36.8 C 94 15 156/96 H 97 10/07/17 12:05 10/07/17 14:30 10/07/17 14:30 10/07/17 14:30 10/07/17 14:30 Laboratory Results 10/07/17 10:15 10/07/17 10:15 10/06/17 10/07/17 10/08/17 05:59 05:59 05:59 Intake Total 2313.5 3777 Balance 2313.5 3777 PT 14.9 SEC (12.0-15.0) 10/03/17 01:30 INR 1.15 (0.83-1.16) 10/03/17 01:30 ICD10 Worksheet Patient Problems: Problems Problem Status Onset Acute pancreatitis Acute Pancreatic mass Acute Abdominal pain Acute
--- NOTE | 2017-10-07 15:43 | HOSPPROG ---
Hospitalist Progress Note Assessment/Plan: * Acute pancreatitis - likely due to obstruction from tumor -IV morphine PRISON GUARD - massive usage of 90 mg morphine in last 24 hours -failed advance diet - back to clears -unclear how much of pain is acute inflammation vs. tumor * Pancreatic cancer - with new liver mets -s/p port placement with Dr. Nair -start chemo as inpatient -transition to Fentanyl patch when improved * H. Pylori gastritis -Biaxin, Flagyl, PPI * HTN -start lisinopril Subjective: Pain returned today. No appetite, put self back on ice chips Objective: Vital Signs Temp Pulse Resp BP Pulse Ox 36.8 C 94 15 156/96 H 97 10/07/17 12:05 10/07/17 14:30 10/07/17 14:30 10/07/17 14:30 10/07/17 14:30 Laboratory Results 10/07/17 10:15 10/07/17 10:15 10/06/17 10/07/17 10/08/17 05:59 05:59 05:59 Intake Total 2313.5 3777 Balance 2313.5 3777 PT 14.9 SEC (12.0-15.0) 10/03/17 01:30 INR 1.15 (0.83-1.16) 10/03/17 01:30 - Physical Exam Constitutional: no apparent distress, appears nourished, not in pain Cardiovascular: regular rate and rhythym, no murmur, rub, or gallop Respiratory: no respiratory distress, no rales or rhonchi, clear to auscultation Gastrointestinal: normoactive bowel sounds, soft, non-tender abdomen, no palpable masses Skin: no rashes or abrasions, no fluctuance, no induration Neurologic: AAOx3, sensation intact bilaterally Psychiatric: interacting appropriately, not anxious, not encephalopathic, thought process linear ICD10 Worksheet Patient Problems: Problems Problem Status Onset Acute pancreatitis Acute Pancreatic mass Acute Abdominal pain Acute
[2017-10-07] MEDS ORDERED: POTASSIUM Cl (KCl) 50 ML IV SCH (15:52)
[2017-10-07] MEDS ORDERED: POTASSIUM Cl (KCl) 100 ML IV SCH (16:00)
[2017-10-07] MEDS: POTASSIUM Cl (KCl) 10 MEQ in D5W 100 ML IV SCH ×4 (16:33→20:52)
[2017-10-07] MEDS: LISINOPRIL 10 MG TAB PO SCH (16:33)
[2017-10-07] MEDS: BISACODYL 5 MG EC TAB PO PRN (20:53)
[2017-10-07] MEDS: ALPRAZolam 0.25 MG TAB PO PRN (23:58)
[2017-10-07] MEDS: traMADol 50 MG TAB PO PRN (23:59)
[2017-10-08] MEDS: morphINE PCA 30 MG/30 ML PCA IV PRN ×3 (05:26→19:41)
[2017-10-08] MEDS: SUCRALFATE 1 GM/10 ML UDCUP PO SCH ×4 (05:30→21:17)
[2017-10-08 06:02] LABS: PLATELET COUNT 281 10^3/uL (150-400)
[2017-10-08] MEDS ORDERED: POTASSIUM Cl (KCl) 100 ML IV SCH ×2 (07:34→08:00)
[2017-10-08] MEDS ORDERED: POTASSIUM Cl (KCl) 20 MEQ in D5W 50 ML IV SCH (08:00)
[2017-10-08] MEDS ORDERED: POTASSIUM Cl (KCl) 10 MEQ in D5W 100 ML IV SCH (08:00)
--- NOTE | 2017-10-08 09:14 | HOSPPROG ---
Hospitalist Progress Note Assessment/Plan: * Acute pancreatitis - likely due to obstruction from tumor. 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 She basically made herself NPO yesterday and lipase down to 600 from 1999. Still asking for more pain meds. -d/c basal rate of POWER SHOVEL ENGINEER, add fentanyl patch and cont college counselor with prn 1-2 mg IV morphine q15 min -trial clears again today -unclear how much of pain is acute inflammation vs. tumor and I suspect some element of emotional pain as well * Pancreatic cancer - with new liver mets -s/p port placement with Dr. Nair -start chemo as inpatient per onc * H. Pylori gastritis -Biaxin, Flagyl, PPI * HTN -start lisinopril * FEN - likely need to start TPN vs J tube / tube feeds with chemo as not maintaining nutrition via po. * DVT PPLX - Lovenox * Full code Subjective: Pt appears comfortable, smiles and laughs, but reports 9/10 pain. No oral intake since yesterday. No N/V. No fevers. Objective: Vital Signs Temp Pulse Resp BP Pulse Ox 36.9 C 90 12 146/91 H 90 L 10/08/17 08:00 10/08/17 08:00 10/08/17 08:00 10/08/17 08:00 10/08/17 08:00 Laboratory Results 10/08/17 05:35 10/08/17 05:35 10/07/17 10/08/17 10/09/17 05:59 05:59 05:59 Intake Total 3777 2234.8 Balance 3777 2234.8 PT 14.9 SEC (12.0-15.0) 10/03/17 01:30 INR 1.15 (0.83-1.16) 10/03/17 01:30 - Physical Exam Constitutional: no apparent distress Eyes: PERRL Ears, Nose, Mouth, Throat: moist mucous membranes Cardiovascular: regular rate and rhythym Respiratory: no respiratory distress, clear to auscultation Gastrointestinal: normoactive bowel sounds, soft, non-tender abdomen, other ( incisions c/d/i) Skin: warm Musculoskeletal: full muscle strength Neurologic: AAOx3 Psychiatric: interacting appropriately ICD10 Worksheet Patient Problems: Problems Problem Status Onset Acute pancreatitis Acute Pancreatic mass Acute Abdominal pain Acute
[2017-10-08] MEDS: CLARITHROMYCIN 500 MG TAB PO SCH ×2 (09:20→21:17)
[2017-10-08] MEDS: PANTOPRAZOLE SODIUM 40 MG TAB PO SCH (09:20)
[2017-10-08] MEDS: LISINOPRIL 10 MG TAB PO SCH (09:20)
[2017-10-08] MEDS: lamoTRIgine 100 MG TAB PO SCH (09:20)
[2017-10-08] MEDS: metroNIDAZOLE 500 MG TAB PO SCH ×3 (09:20→21:17)
[2017-10-08] MEDS ORDERED: NALOXONE HCL 0.4 MG/ML INJ IVP PRN (09:39)
[2017-10-08] MEDS ORDERED: fentaNYL 25 MCG PATCH TD SCH (09:45)
[2017-10-08] MEDS ORDERED: fentaNYL 12 MCG PATCH TD SCH (09:45)
[2017-10-08] MEDS: fentaNYL 75 MCG PATCH TD SCH (11:26)
[2017-10-08] MEDS: PANTOPRAZOLE SODIUM 40 MG VIAL IVP SCH ×2 (11:45→21:17)
[2017-10-08] MEDS: ENOXAPARIN 40 MG/0.4 ML SYR SC SCH (11:45)
[2017-10-08] MEDS ORDERED: BISACODYL 10 MG SUPP PR ONE (12:37)
[2017-10-08] MEDS ORDERED: D10W 1,000 ML IV PRN (14:20)
--- NOTE | 2017-10-08 14:59 | SOAPPROG ---
SOAP Progress Note Assessment/Plan: A/P: * Acute pancreatitis: stuttering. Most likely due to pancreatic mass. She needs to start treatment, which will hopefully improve pancreatitis. She agrees. Will support with TPN, diet as tolerated. - PICC line, then begin chemo - TPN * Metastatic pancreatic ca: liver metastases. Plan to begin chemo (FOLFIRINOX ) after PICC placed (inadequate staffing to accompany to IR if chemo running during PICC placement). * DVT prophylaxis: Lovenox 10/08/17 14:56 Subjective: Some clears today. No BM or gas. O: VS reviewed. Gen: A&O, fairly comfortable. Lungs: CTA. Abd: healing laparoscopy sites, mildly tender. Laboratory Tests 10/03/17 10/03/17 10/06/17 01:30 01:30 04:13 WBC Hgb Hct Plt Count Sodium Potassium Chloride Carbon Dioxide Anion Gap BUN Creatinine Estimated GFR Glucose Lipase 670 H Carcinoembryonic Ag 25.30 H CA 19-9 Antigen 1274 H 10/07/17 10/08/17 10/08/17 10:15 05:35 05:35 WBC 7.34 Hgb 13.4 Hct 37.8 L Plt Count 281 Sodium 141 Potassium 3.7 Chloride 105 Carbon Dioxide 27 Anion Gap 9 BUN 3 L Creatinine 0.5 L Estimated GFR > 60 Glucose 115 H Lipase 2022 H 694 H Carcinoembryonic Ag CA 19-9 Antigen Objective: Vital Signs Temp Pulse Resp BP Pulse Ox 37.0 C 99 16 163/101 H 94 10/08/17 12:00 10/08/17 12:00 10/08/17 12:00 10/08/17 12:00 10/08/17 12:00 Laboratory Results 10/08/17 05:35 10/08/17 05:35 10/07/17 10/08/17 10/09/17 05:59 05:59 05:59 Intake Total 3777 2234.8 Balance 3777 2234.8 PT 14.9 SEC (12.0-15.0) 10/03/17 01:30 INR 1.15 (0.83-1.16) 10/03/17 01:30 ICD10 Worksheet Patient Problems: Problems Problem Status Onset Acute pancreatitis Acute Pancreatic mass Acute Abdominal pain Acute
[2017-10-08] MEDS: LORazepam 2 MG/ML INJ IVP PRN (16:46)
[2017-10-08 16:55] LABS: INR 1.22 (0.83-1.16); PROTIME(PATIENT) 15.6 SEC (12.0-15.0)
--- NOTE | 2017-10-08 16:57 | ASMTCMCOM ---
CM Note CM Note Notes: Amisha from Palliative care met w/pt today; she said that pt would benefit from social work visit, stating that pt recently and has two kids ages 13 and 15 and pancreatic Ca diagnosis. Date Signed: 10/08/2017 04:56 PM Electronically Signed By:Diane Garduno RN
[2017-10-08 17:32] LABS: PLATELET COUNT 266 10^3/uL (150-400)
[2017-10-08] MEDS: BISACODYL 5 MG EC TAB PO PRN (21:17)
[2017-10-08] MEDS: TPN 1 EA BAG IV SCH (21:18)
[2017-10-09] MEDS: SUCRALFATE 1 GM/10 ML UDCUP PO SCH ×2 (04:50→13:36)
[2017-10-09 05:16] LABS: PLATELET COUNT 243 10^3/uL (150-400)
[2017-10-09 05:49] LABS: INR 1.22 (0.83-1.16); PROTIME(PATIENT) 15.6 SEC (12.0-15.0)
[2017-10-09] MEDS: LISINOPRIL 10 MG TAB PO SCH (08:19)
[2017-10-09] MEDS: metroNIDAZOLE 500 MG TAB PO SCH ×3 (08:20→22:13)
[2017-10-09] MEDS: lamoTRIgine 100 MG TAB PO SCH (08:20)
[2017-10-09] MEDS: ENOXAPARIN 40 MG/0.4 ML SYR SC SCH (08:21)
[2017-10-09] MEDS: PANTOPRAZOLE SODIUM 40 MG VIAL IVP SCH ×2 (08:23→22:13)
[2017-10-09] MEDS ORDERED: MAGNESIUM SULF 1 GM/DEXTROSE 100 ML IV ONE ×2 (08:30→13:15)
[2017-10-09] MEDS: POTASSIUM Cl (KCl) 10 MEQ in NS 100 ML IV SCH ×3 (08:55→13:02)
[2017-10-09] MEDS: CLARITHROMYCIN 500 MG TAB PO SCH ×2 (08:56→22:13)
--- NOTE | 2017-10-09 09:22 | SOAPPROG ---
SOAP Progress Note Assessment/Plan: Assessment/Plan: 52yo F with pancreatic cancer, admitted with pancreatitis s/p R power port placement and lap liver bx frozen section metastatic pancreatic. final path pending Patient sleeping in room - I will check back in am Objective: Vital Signs Temp Pulse Resp BP Pulse Ox 36.8 C 106 H 16 154/98 H 97 10/09/17 06:02 10/09/17 06:02 10/09/17 06:02 10/09/17 08:19 10/09/17 06:02 Laboratory Results 10/09/17 05:00 10/09/17 05:00 10/08/17 10/09/17 10/10/17 05:59 05:59 05:59 Intake Total 2234.8 310 Output Total 650 Balance 2234.8 -340 PT 15.6 SEC (12.0-15.0) H 10/09/17 05:00 INR 1.22 (0.83-1.16) H 10/09/17 05:00 ICD10 Worksheet Patient Problems: Problems Problem Status Onset Acute pancreatitis Acute Pancreatic mass Acute Abdominal pain Acute
--- NOTE | 2017-10-09 09:28 | SOAPPROG ---
SOAP Progress Note Assessment/Plan: Assessment/Plan: 52yo F with pancreatic cancer, admitted with pancreatitis POD#4 s/p R power port placement and lap liver bx frozen section metastatic pancreatic. final path pending Plan to start chemo today. Appreciate hospitalists and oncology We will check in periodically through this hospital stay. Please do not hesitate to contact Dr. Nair or myself with any issues S: persistent abdominal pain, feels like hunger pains this am. O: sitting upright in bed, comfortable, NAD No increased WOB R power port dressing in place, accessed and fluids running Abd soft, nondistended. Tender. Incisions CDI with mild surrounding ecchymosis Objective: Vital Signs Temp Pulse Resp BP Pulse Ox 36.8 C 106 H 16 154/98 H 97 10/09/17 06:02 10/09/17 06:02 10/09/17 06:02 10/09/17 08:19 10/09/17 06:02 Laboratory Results 10/09/17 05:00 10/09/17 05:00 10/08/17 10/09/17 10/10/17 05:59 05:59 05:59 Intake Total 2234.8 310 Output Total 650 Balance 2234.8 -340 PT 15.6 SEC (12.0-15.0) H 10/09/17 05:00 INR 1.22 (0.83-1.16) H 10/09/17 05:00 ICD10 Worksheet Patient Problems: Problems Problem Status Onset Acute pancreatitis Acute Pancreatic mass Acute Abdominal pain Acute
[2017-10-09] MEDS: morphINE PCA 30 MG/30 ML PCA IV PRN (09:50)
--- NOTE | 2017-10-09 10:56 | SOAPPROG ---
SOAP Progress Note Assessment/Plan: Assessment: Assessment/Plan: A/P: * Acute pancreatitis: stuttering. Most likely due to pancreatic mass. Starting chemo today which will hopefully improve pancreatitis. Will support with TPN, diet as tolerated. May need to go home on cyclical TPN. Will see how pain/po is tolerated in the coming days. * Metastatic pancreatic ca: liver metastases. Starting FOLFIRNOX today. BRCA negative. Neupagen to start on . * DVT prophylaxis: Lovenox 10/09/17 10:57 Subjective: feeling more comfortable, but unable to eat. causes pain Objective: Vital Signs Temp Pulse Resp BP Pulse Ox 36.6 C 95 16 135/85 H 94 10/09/17 10:00 10/09/17 10:00 10/09/17 10:00 10/09/17 10:00 10/09/17 10:00 Laboratory Results 10/09/17 05:00 10/09/17 05:00 10/08/17 10/09/17 10/10/17 05:59 05:59 05:59 Intake Total 2234.8 310 Output Total 650 Balance 2234.8 -340 PT 15.6 SEC (12.0-15.0) H 10/09/17 05:00 INR 1.22 (0.83-1.16) H 10/09/17 05:00 Physical Exam - Physical Exam General Appearance: alert, no apparent distress Neck: supple Respiratory: lungs clear Abdomen: non-tender (well healed laparascopic incisions.), soft, other Skin: other (right chest port looks ok, left PICC looks ok) Extremities: No pedal edema ICD10 Worksheet Patient Problems: Problems Problem Status Onset Acute pancreatitis Acute Pancreatic mass Acute Abdominal pain Acute
[2017-10-09] MEDS ORDERED: LORazepam 2 MG/ML INJ IVP ONE (12:00)
[2017-10-09] MEDS ORDERED: D5W IV ONE ×4 (12:00→15:30)
[2017-10-09] MEDS ORDERED: PALONOSETRON HCL 0.25 MG/5 ML VIAL IVP ONE (12:00)
[2017-10-09] MEDS ORDERED: DEXAMETHASONE SOD PHOSPHATE IV ONE (12:00)
[2017-10-09] MEDS ORDERED: NS IV ONE (12:00)
[2017-10-09] MEDS ORDERED: FOSAPREPITANT IV ONE (12:00)
[2017-10-09] MEDS ORDERED: OXALIPLATIN IV ONE (13:00)
[2017-10-09] MEDS ORDERED: PROMETHAZINE HCL 25 MG TAB PO PRN (14:19)
[2017-10-09] MEDS ORDERED: PROMETHAZINE HCL 25 MG/ML INJ IVP PRN (14:19)
--- NOTE | 2017-10-09 14:23 | HOSPPROG ---
Hospitalist Progress Note Assessment/Plan: * Acute pancreatitis - likely due to obstruction from tumor. Unclear how much of pain is acute inflammation vs. tumor and I suspect some element of emotional pain as well. Lipase down when NPO, back up with just clears today, but overall pain improved. 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 Nair -starting chemo today per onc, hoping this will improve pancreatitis issue * H. Pylori gastritis -Biaxin, Flagyl, PPI -carafate d/c'd, did not provide benefit * HTN -cont lisinopril * FEN - PICC placed yesterday, on TPN now * DVT PPLX - Lovenox * Full code Subjective: Pt resting comfortably. Pain improved today, using less frequent morphine on locker attendant. No N/V. No fevers. Objective: Vital Signs Temp Pulse Resp BP Pulse Ox 36.9 C 98 18 124/90 H 95 10/09/17 12:00 10/09/17 12:00 10/09/17 12:00 10/09/17 12:00 10/09/17 12:00 Laboratory Results 10/09/17 05:00 10/09/17 05:00 10/08/17 10/09/17 10/10/17 05:59 05:59 05:59 Intake Total 2234.8 310 Output Total 650 550 Balance 2234.8 -340 -550 PT 15.6 SEC (12.0-15.0) H 10/09/17 05:00 INR 1.22 (0.83-1.16) H 10/09/17 05:00 - Physical Exam Constitutional: no apparent distress Ears, Nose, Mouth, Throat: moist mucous membranes Cardiovascular: regular rate and rhythym Respiratory: no respiratory distress Skin: warm Neurologic: AAOx3 ICD10 Worksheet Patient Problems: Problems Problem Status Onset Acute pancreatitis Acute Pancreatic mass Acute Abdominal pain Acute
[2017-10-09] MEDS ORDERED: LEUCOVORIN CALCIUM IV ONE (15:00)
[2017-10-09] MEDS ORDERED: IRINOTECAN HCL IV ONE (15:30)
[2017-10-09] MEDS ORDERED: FLUOROURACIL IV ONE (17:00)
[2017-10-09] MEDS: FLUOROURACIL IV SCH (18:21)
[2017-10-09] MEDS: D5W IV SCH (18:21)
[2017-10-09] MEDS: TPN 1 EA BAG IV SCH (22:11)
--- NOTE | 2017-10-09 22:34 | GOP ---
[f rep st] OPERATIVE REPORT DATE OF OPERATION: 10/05/2017 SURGEON: Stephany Nair MD ANESTHESIA: General. ANESTHESIOLOGIST: Jones Cartagena DO. PREOPERATIVE DIAGNOSIS: Pancreatic cancer. POSTOPERATIVE DIAGNOSIS: Pancreatic cancer. PROCEDURE PERFORMED: Right ultrasound-guided internal jugular PowerPort placement with right neck exploration and laparoscopic liver biopsy x2. FINDINGS: Two small liver lesions and small collateral vein by internal jugular vein. SPECIMENS: Liver biopsy. ESTIMATED BLOOD LOSS: 100 cc. INDICATIONS: The patient is a 52-year-old with pancreatic cancer. She was admitted to the hospital due to pancreatitis and on her CT scan liver lesions were also noted. She was scheduled to have a port placement and we also discussed the importance of liver biopsy for staging. DESCRIPTION OF PROCEDURE: The patient was brought into the operating room, placed supine on the table, and general anesthesia was administered. Her bilateral neck, chest and abdomen were prepped and draped in the usual sterile fashion. She was placed in the Trendelenburg position. I infiltrated all sites with 0.5% Marcaine prior to making incisions. I used the ultrasound to examine her left internal jugular vein. It was small but compressible. I accessed it with a needle but had difficulty threading the guidewire. I tried this 2 more times. I then ultrasounded her right neck and the internal jugular vein on the right side was much larger. I accessed this easily, with dark return of blood flow and threaded the guidewire. I removed the needle. The placement of the wire was confirmed in the inferior vena cava. I created a pocket to accommodate the port in the right chest. I tunneled this up to the insertion site. I measured the catheter under fluoroscopy and cut it to size. Using the Seldinger technique, I placed a dilator and sheath over the wire. I removed the wire and the dilator. I threaded the catheter through the sheath and peeled away the sheath. Fluoroscopy showed the tip of the port at the SVC. She was having some bleeding from her neck and there was also concern of the catheter kinking in her neck. I held pressure. I then manipulated the catheter. She still had brisk bleeding from her neck. I then opened this incision further to examine the area of oozing. Although there was some oozing from the skin, there was something deeper. I opened the incision further to explore this. I could see the internal jugular vein where the catheter was going in nicely without twisting or turning. There was a small collateral vein going into this that I ligated with 3-0 Vicryl. Hemostasis was achieved. I closed the port pocket and the neck incision with 3-0 Vicryl followed by 4-0 Monocryl, Mastisol, Steri-Strips, and sterile dressing were applied. I reaccessed the port in her chest. I withdrew blood and flushed if with heparin. I left her accessed. Next, I made a small incision by her umbilicus. I elevated it. I inserted the Veress needle. It passed the hanging drop test. Her abdomen insufflated easily to a pressure of 15 mmHg. I placed 2 additional 5 mm trocars in this area. I explored her abdomen. There was no obvious metastatic disease. I lifted the right lower lobe of her liver and I could see a subcentimeter nodule. I took a biopsy of this and sent it to Pathology for frozen. I then performed some adhesiolysis to separate her stomach and duodenum from her gallbladder. Once this was performed, I could lift her gallbladder up cephalad , and I could see her IVC. On the left inferior lobe of the liver, I saw another liver lesion that was also approximately 1 cm. I biopsied this and sent it to Pathology for permanent. Hemostasis was achieved on the liver. Pathology returned with the frozen diagnosis of adenocarcinoma. The ports were removed and the abdomen allowed to desufflate. Skin closed with 4-0 Monocryl. Dermabond applied. She was awakened in the operating room, extubated, transferred to PACU in stable condition. /[id number]/MODL MTDD
[2017-10-10 06:08] LABS: PLATELET COUNT 230 10^3/uL (150-400)
[2017-10-10 06:27] LABS: INR 1.17 (0.83-1.16); PROTIME(PATIENT) 15.1 SEC (12.0-15.0)
[2017-10-10] MEDS: LORazepam 2 MG/ML INJ IVP PRN ×2 (08:11→17:18)
[2017-10-10] MEDS ORDERED: PANTOPRAZOLE SODIUM 40 MG TAB PO SCH (09:00)
[2017-10-10] MEDS: PANTOPRAZOLE SODIUM 40 MG VIAL IVP SCH ×2 (09:15→21:21)
[2017-10-10] MEDS: ENOXAPARIN 40 MG/0.4 ML SYR SC SCH (09:15)
[2017-10-10] MEDS: lamoTRIgine 100 MG TAB PO SCH (09:16)
[2017-10-10] MEDS: LISINOPRIL 10 MG TAB PO SCH (09:16)
--- NOTE | 2017-10-10 13:03 | SOAPPROG ---
SOAP Progress Note Assessment/Plan: A/P: * Acute pancreatitis: stuttering. Most likely due to pancreatic mass. Hopefully tx will improve pancreatitis. - continue TPN, change to cyclic if needs to continue at home * Metastatic pancreatic ca: liver metastases. C1D2 FOLFIRINOX. * DVT prophylaxis: Lovenox. 10/10/17 13:01 Subjective: Abd tender. Tolerating some clears. O: VS reviewed. Gen: NAD, A&O. Lungs: CTA. CV: no edema. Abd: diffuse tenderness. Laboratory Tests 10/10/17 10/10/17 05:50 05:50 WBC 7.05 Hgb 13.2 Plt Count 230 Sodium 139 Potassium 3.8 Chloride 101 Carbon Dioxide 28 Anion Gap 10 BUN 12 Creatinine 0.4 L Estimated GFR > 60 Glucose 225 H Total Bilirubin 0.8 AST 17 ALT 43 Alkaline Phosphatase 67 Objective: Vital Signs Temp Pulse Resp BP Pulse Ox 36.5 C 86 14 136/87 H 96 10/10/17 11:56 10/10/17 11:56 10/10/17 11:56 10/10/17 11:56 10/10/17 11:56 Laboratory Results 10/10/17 05:50 10/10/17 05:50 10/09/17 10/10/17 10/11/17 05:59 05:59 05:59 Intake Total 310 1812 Output Total 650 3050 500 Balance -340 -1238 -500 PT 15.1 SEC (12.0-15.0) H 10/10/17 05:50 INR 1.17 (0.83-1.16) H 10/10/17 05:50 ICD10 Worksheet Patient Problems: Problems Problem Status Onset Acute pancreatitis Acute Pancreatic mass Acute Abdominal pain Acute
[2017-10-10] MEDS: SUCRALFATE 1 GM/10 ML UDCUP PO SCH ×2 (15:46→21:21)
--- NOTE | 2017-10-10 16:47 | HOSPPROG ---
Hospitalist Progress Note Assessment/Plan: The patient is a 52yo who was admitted for pancreatitis and pancreatic cancer. ASSESSMENT/PLAN: Acute pancreatitis St IV Pancreatic adenocarcinoma w/ metastases to liver Coagulopathy, 2/2 above Abd pain, 2/2 above -s/p port placement, Started chemo -On TPN -HemOnc following -prn pain meds, antiemetics -clear liquids, as tolerated -I have discussed w/ patient and RN. I spent 15 minutes answering patient's questions about medications and reviewed the entire med list with the patient. H Pylori gastritis -Abx, PPI HTN -lisinopril VTE prophylaxis: Lovenox Code Status: Full Status: inpt for > 2 midnight stay. Disposition: medsurg This pt is new to me. Reviewed chart for this visit. ____ SUBJECTIVE: Today pt has been tolerating TPN. She is frustrated that her Carafate was stopped because she felt it had helped her. OBJECTIVE: Physical Exam: General: The patient is a female who is alert and in no acute distress. HEENT: normocephalic, extraocular movements intact, conjunctivae clear. Mucous membranes moist. Neck: trachea midline, no visible masses. CV: nl peripheral perfusion Resp: unlabored breathing. Abd: soft and nondistended. +tender RUQ/midepigastrium. Musculoskeletal: Normal muscle tone/bulk. Neuro: cranial nerves II XII grossly intact. Intact gross motor and sensory function. Psych: appropriate (anxious) mood and appropriate affect. Skin: No pallor. No petechiae. Heme/lymph: No peripheral edema at bilateral lower legs. Labs/Imaging/Other Tests: Personally reviewed/interpreted. Objective: Vital Signs Temp Pulse Resp BP Pulse Ox 36.5 C 86 14 136/87 H 96 10/10/17 11:56 10/10/17 11:56 10/10/17 11:56 10/10/17 11:56 10/10/17 11:56 Laboratory Results 10/10/17 05:50 10/10/17 05:50 10/09/17 10/10/17 10/11/17 05:59 05:59 05:59 Intake Total 310 1812 Output Total 650 3050 500 Balance -340 -1238 -500 PT 15.1 SEC (12.0-15.0) H 10/10/17 05:50 INR 1.17 (0.83-1.16) H 10/10/17 05:50 ICD10 Worksheet Patient Problems: Problems Problem Status Onset Acute pancreatitis Acute Pancreatic mass Acute Abdominal pain Acute
[2017-10-10] MEDS ORDERED: D50W 25 GM/50 ML SYR IVP PRN (17:24)
--- NOTE | 2017-10-10 18:19 | ASMTCMCOM ---
CM Note CM Note Notes: Pt would benefit from social work or carder blankets visit, unable to happen today; would be helpful if this can happen tomorrow 10/11. Date Signed: 10/10/2017 06:19 PM Electronically Signed By:Diane Garduno RN
[2017-10-10] MEDS: D5W IV SCH (18:50)
[2017-10-10] MEDS: FLUOROURACIL IV SCH (18:50)
[2017-10-10] MEDS: TPN 1 EA BAG IV SCH (21:21)
[2017-10-10] MEDS: INSULIN REGULAR HUMAN 100 UNIT/ML UNIT SC SCH (21:22)
[2017-10-10] MEDS: BISMUTH SUBSALICYLATE 524 MG/30 ML UDL PO PRN (22:03)
[2017-10-11] MEDS: INSULIN REGULAR HUMAN 100 UNIT/ML UNIT SC SCH ×4 (00:17→18:44)
[2017-10-11] MEDS: hydrALAZINE 20 MG/ML VIAL IVP PRN (00:17)
[2017-10-11] MEDS: LORazepam 2 MG/ML INJ IVP PRN ×3 (00:22→21:26)
[2017-10-11] MEDS: SIMETHICONE 80 MG TAB CHEW PO PRN ×5 (00:22→21:26)
[2017-10-11] MEDS: SUCRALFATE 1 GM/10 ML UDCUP PO SCH ×4 (06:11→21:26)
[2017-10-11 06:30] LABS: PLATELET COUNT 270 10^3/uL (150-400)
[2017-10-11 06:40] LABS: INR 1.1 (0.83-1.16); PROTIME(PATIENT) 14.4 SEC (12.0-15.0)
[2017-10-11] MEDS: lamoTRIgine 100 MG TAB PO SCH (10:02)
[2017-10-11] MEDS: METOCLOPRAMIDE 10 MG TAB PO PRN ×2 (10:02→18:34)
[2017-10-11] MEDS: LISINOPRIL 10 MG TAB PO SCH (10:02)
[2017-10-11] MEDS: ENOXAPARIN 40 MG/0.4 ML SYR SC SCH (10:03)
[2017-10-11] MEDS: PANTOPRAZOLE SODIUM 40 MG VIAL IVP SCH ×2 (10:20→21:26)
[2017-10-11] MEDS: fentaNYL 75 MCG PATCH TD SCH (11:57)
[2017-10-11] MEDS: BISACODYL 10 MG SUPP PR PRN (12:00)
[2017-10-11] MEDS: PROCHLORPERAZINE MALEATE 5 MG TAB PO PRN (12:08)
--- NOTE | 2017-10-11 12:40 | SOAPPROG ---
SOAP Progress Note Assessment/Plan: Assessment: Assessment/Plan: A/P: * Pancreatitis: Most likely due to pancreatic mass. Pain is improved, but still unable to tolerate po. Nausea secondary to chemo may also be contributing to decrease po intake. * Nutrition-minimal po intake. Will likely need home TPN. Sugars running high, pharmacy adjusting insulin. Will still be a few days until TPN can become cyclical * Metastatic pancreatic ca: liver metastases. D3C1 of FOLFIRINOX today. 5FU infusion ends this evening. Neupagen starting tomorrow. * DVT prophylaxis: Lovenox 10/09/17 10:57 10/11/17 12:36 Subjective: nauseased, no appetite, feels as though she has increased 'gas' Objective: Vital Signs Temp Pulse Resp BP Pulse Ox 36.8 C 84 16 158/98 H 95 10/11/17 08:52 10/11/17 08:52 10/11/17 08:52 10/11/17 08:52 10/11/17 08:52 Laboratory Results 10/11/17 06:15 10/11/17 06:15 10/10/17 10/11/17 10/12/17 05:59 05:59 05:59 Intake Total 1812 0 Output Total 3050 2300 600 Balance -1238 -2300 -600 PT 14.4 SEC (12.0-15.0) 10/11/17 06:15 INR 1.10 (0.83-1.16) 10/11/17 06:15 Physical Exam - Physical Exam General Appearance: alert Respiratory: lungs clear Abdomen: non-tender (well healing incisions), soft Skin: other (right port and left PICC look fine) ICD10 Worksheet Patient Problems: Problems Problem Status Onset Acute pancreatitis Acute Pancreatic mass Acute Abdominal pain Acute
--- NOTE | 2017-10-11 14:54 | ASMTCMCOM ---
CM Note CM Note Notes: Attempted to meet with pt to provide support and discuss DC planning. Pt very sleep and asked for CM to come back. Pt did give permission to get benefits for cyclic home TPN. CM to follow. Date Signed: 10/11/2017 02:53 PM Electronically Signed By:Sharmila rSivastava LCSW
--- NOTE | 2017-10-11 15:26 | HOSPPROG ---
Hospitalist Progress Note Assessment/Plan: Assessment: 52 yo F p/w acute pancreatitis in setting of stage IV pancreatic cancer # Acute pancreatitis - likely due to obstruction from tumor, with inflammatory component - lipase back up with just clears, liver panel unremarkable - cont fent patch, PRN morphine - cont clears w/ TPN # Stage IV Pancreatic cancer w/ liver mets - D#3 FOLFIRINOX - s/p port placement with Dr. Nair # H. Pylori gastritis - s/p Biaxin, Flagyl, now just on PPI / carafate # HTN - chronic, cont lisinopril Diet - TPN, clears Code - Full PPx - high risk, lovenox 40 Dispo - ADD uncertain, pending tolerance of chemo and resolution of pancreatitis Subjective: patient w/ ongoing gen nausea, no overt pain Objective: Vital Signs Temp Pulse Resp BP Pulse Ox 36.8 C 84 16 158/98 H 95 10/11/17 08:52 10/11/17 08:52 10/11/17 08:52 10/11/17 08:52 10/11/17 08:52 Laboratory Results 10/11/17 06:15 10/11/17 06:15 10/10/17 10/11/17 10/12/17 05:59 05:59 05:59 Intake Total 1812 0 Output Total 3050 2300 600 Balance -1238 -2300 -600 PT 14.4 SEC (12.0-15.0) 10/11/17 06:15 INR 1.10 (0.83-1.16) 10/11/17 06:15 - Physical Exam Constitutional: no apparent distress, appears nourished, uncomfortable, No not in pain (mild) Cardiovascular: regular rate and rhythym, no murmur, rub, or gallop, No edema Respiratory: no respiratory distress, no rales or rhonchi, clear to auscultation Gastrointestinal: tenderness (mild to mod depth palpation), No normoactive bowel sounds (hypoactive bowel sounds), No guarding, No distension Skin: other (no erythema/induration/ecchymoses around port) Neurologic: AAOx3, sensation intact bilaterally, No facial droop Psychiatric: interacting appropriately, not anxious, not encephalopathic, thought process linear ICD10 Worksheet Patient Problems: Problems Problem Status Onset Abdominal pain Acute Pancreatic mass Acute Acute pancreatitis Acute
[2017-10-11] MEDS ORDERED: MAGNESIUM CITRATE 300 ML BOTTLE PO ONE (16:06)
[2017-10-11] MEDS: TPN 1 EA BAG IV SCH (21:48)
[2017-10-12] MEDS: INSULIN REGULAR HUMAN 100 UNIT/ML UNIT SC SCH ×4 (02:50→20:09)
[2017-10-12 04:41] LABS: PLATELET COUNT 282 10^3/uL (150-400)
[2017-10-12] MEDS: SUCRALFATE 1 GM/10 ML UDCUP PO SCH ×4 (05:33→20:49)
[2017-10-12] MEDS: LORazepam 2 MG/ML INJ IVP PRN ×3 (08:12→18:06)
[2017-10-12] MEDS ORDERED: OXYCODONE/APAP 5/325 TAB PO PRN (10:06)
[2017-10-12] MEDS: lamoTRIgine 100 MG TAB PO SCH (11:35)
[2017-10-12] MEDS: LISINOPRIL 10 MG TAB PO SCH (11:35)
[2017-10-12] MEDS: PANTOPRAZOLE SODIUM 40 MG VIAL IVP SCH ×2 (11:35→20:50)
[2017-10-12] MEDS: ENOXAPARIN 40 MG/0.4 ML SYR SC SCH (11:36)
[2017-10-12] MEDS: ALTEPLASE 2 MG VIAL IVP PRN ×2 (13:21→13:26)
--- NOTE | 2017-10-12 14:07 | SOAPPROG ---
SOAP Progress Note Assessment/Plan: A/P: * Acute pancreatitis: stuttering. Most likely due to pancreatic mass. Hopefully tx will improve pancreatitis. - continue TPN, change to cyclic when able, expect she will need to go home on TPN - I recommended she be NPO for today * Metastatic pancreatic ca: liver metastases. C1D4 FOLFIRINOX. * DVT prophylaxis: Lovenox. 10/12/17 14:06 Subjective: Abd discomfort continues. Had some clears yesterday and this morning. O: VS reviewed. Gen: A&O, mildly uncomfortable appearing. CV: no edema. Lungs: breathing comfortably. Abd: +BS. Laboratory Tests 10/12/17 10/12/17 04:30 04:30 WBC 7.77 Hgb 13.8 Hct 38.5 Plt Count 282 Sodium 137 Potassium 4.3 Chloride 101 Carbon Dioxide 26 Anion Gap 10 BUN 14 Creatinine 0.4 L Estimated GFR > 60 Glucose 181 H Total Bilirubin 0.9 D AST 21 ALT 41 Alkaline Phosphatase 67 Lipase 621 H Objective: Vital Signs Temp Pulse Resp BP Pulse Ox 36.9 C 91 17 126/84 H 94 10/12/17 08:45 10/12/17 08:45 10/12/17 08:45 10/12/17 08:45 10/12/17 08:45 Laboratory Results 10/12/17 04:30 10/12/17 04:30 10/11/17 10/12/17 10/13/17 05:59 05:59 05:59 Intake Total 0 2322 Output Total 2300 1200 Balance -2300 1122 PT 14.4 SEC (12.0-15.0) 10/11/17 06:15 INR 1.10 (0.83-1.16) 10/11/17 06:15 ICD10 Worksheet Patient Problems: Problems Problem Status Onset Acute pancreatitis Acute Pancreatic mass Acute Abdominal pain Acute
--- NOTE | 2017-10-12 14:42 | ASMTCMCOM ---
CM Note CM Note Notes: Multiple attemptes were made to meet with pt for support. Pt is not interested yet in meeting with anyone. She also declined [employer] support person to discuss TPN. Her TPN will covered at 100% once she meets her [id number] which is likely after DC. oecateered PT/OT evals. CM will continue to attempt to meet with pt for DC needs, support and resources. Date Signed: 10/12/2017 02:42 PM Electronically Signed By:Sharmila Srivastava LCSW
[2017-10-12] MEDS ORDERED: FILGRASTIM-SNDZ 480 MCG/0.8 ML SYR SC SCH (15:00)
[2017-10-12] MEDS: FILGRASTIM-SNDZ 300 MCG/0.5 ML SYR SC SCH (18:08)
--- NOTE | 2017-10-12 18:29 | HOSPPROG ---
Hospitalist Progress Note Assessment/Plan: Assessment: 52 yo F p/w acute pancreatitis in setting of stage IV pancreatic cancer # Acute pancreatitis - likely due to obstruction from tumor, with inflammatory component - lipase stabilized - cont fent patch, PRN morphine, begin cycling in PO home pain Rx if patient amenable - per Dr. Rojas, de-escalate diet to NPO w/ sips/chips and gauge tolerance, cont TPN # Stage IV Pancreatic cancer w/ liver mets - D#4 FOLFIRINOX - s/p port placement with Dr. Nair - suspect that at least some component of her discomfort is driven by her recent chemo - introduce PO ativan for nausea (IV as breakthrough) # H. Pylori gastritis - s/p Biaxin, Flagyl, now just on PPI / carafate # HTN - chronic, cont lisinopril Diet - TPN, NPO Code - Full PPx - high risk, lovenox 40 Dispo - ADD uncertain, pending tolerance of chemo and resolution of pancreatitis Subjective: patient less nauseated w/ NPO status today, ambulating around unit w /o walker, no BMs Objective: Vital Signs Temp Pulse Resp BP Pulse Ox 37.1 C 97 14 139/82 H 92 10/12/17 16:00 10/12/17 16:00 10/12/17 16:00 10/12/17 16:00 10/12/17 16:00 Laboratory Results 10/12/17 04:30 10/12/17 04:30 10/11/17 10/12/17 10/13/17 05:59 05:59 05:59 Intake Total 0 2322 Output Total 2300 1200 Balance -2300 1122 PT 14.4 SEC (12.0-15.0) 10/11/17 06:15 INR 1.10 (0.83-1.16) 10/11/17 06:15 - Physical Exam Constitutional: no apparent distress, not in pain, uncomfortable, No chronically ill appearing Cardiovascular: tachycardia, No systolic murmur, No irregularly irregular, No edema Respiratory: no respiratory distress, no rales or rhonchi, clear to auscultation Gastrointestinal: tenderness (mid epigastric area), No normoactive bowel sounds (hypoactive bowel sounds), No guarding, No distension Neurologic: AAOx3, No facial droop Psychiatric: not encephalopathic, thought process linear, anxious, flat affect ICD10 Worksheet Patient Problems: Problems Problem Status Onset Abdominal pain Acute Pancreatic mass Acute Acute pancreatitis Acute
[2017-10-12] MEDS: LORazepam 1 MG TAB PO PRN (21:05)
[2017-10-12] MEDS: TPN 1 EA BAG IV SCH (22:04)
[2017-10-13] MEDS: INSULIN REGULAR HUMAN 100 UNIT/ML UNIT SC SCH ×4 (05:33→17:42)
[2017-10-13] MEDS: SUCRALFATE 1 GM/10 ML UDCUP PO SCH ×4 (05:39→22:20)
[2017-10-13] MEDS: LORazepam 1 MG TAB PO PRN ×3 (05:45→20:38)
[2017-10-13] MEDS: LISINOPRIL 10 MG TAB PO SCH (09:56)
[2017-10-13] MEDS: lamoTRIgine 100 MG TAB PO SCH (09:56)
[2017-10-13] MEDS: ENOXAPARIN 40 MG/0.4 ML SYR SC SCH (09:57)
[2017-10-13] MEDS: PANTOPRAZOLE SODIUM 40 MG VIAL IVP SCH ×2 (09:57→20:38)
[2017-10-13] MEDS ORDERED: HYDROmorphONE/DILAUDID 1 MG/ML INJ IVP PRN ×2 (11:31→15:55)
[2017-10-13] MEDS ORDERED: HYDROmorphONE/DILAUDID 1 MG/ML INJ IVP ONE ×2 (12:59→15:45)
[2017-10-13] MEDS ORDERED: NALOXONE HCL 0.4 MG/ML INJ IVP PRN (12:59)
--- NOTE | 2017-10-13 13:09 | SOAPPROG ---
SOAP Progress Note Assessment/Plan: Assessment: - Acute pancreatitis - in exacerbation at the moment. Her pain is not well controlled. She is NPO. Monitor lipase - Pancreatic CA - locally advanced with liver mets biopsy proven on laparoscopy. Today is C1D5 Folfirinox. First re-evaluation point just before Cycle 3 - Pain - will need to increase sustained release med (fentanyl) and change to Dilaudid TRACK AND FIELD COACH for now. - Nutrition - will continue TPN. This will need to continue at home. - DVT prophylaxis: Lovenox. Plan: Dilaudid TRACK AND FIELD COACH Increase fentanyl to 100mcg/hr. NPO Monitor lipase 10/13/17 13:11 Subjective: Curled in position. Able to answer questions but she is very uncomfortable and in moderate to sever distress. Objective: Vital Signs Temp Pulse Resp BP Pulse Ox 37.0 C 90 14 119/76 94 10/13/17 12:33 10/13/17 12:33 10/13/17 12:33 10/13/17 12:33 10/13/17 12:33 Laboratory Results 10/12/17 04:30 10/13/17 05:30 10/11/17 10/12/17 10/13/17 23:59 23:59 23:59 Intake Total 1541 781 676 Output Total 2100 1 Balance -559 781 675 PT 14.4 SEC (12.0-15.0) 10/11/17 06:15 INR 1.10 (0.83-1.16) 10/11/17 06:15 Physical Exam - Physical Exam General Appearance: severe distress Respiratory: lungs clear Cardiac/Chest: regular rate, rhythm Abdomen: other (very tender in epigastrum and RUQ) Skin: pallor Neuro/Psych: oriented x 3 ICD10 Worksheet Patient Problems: Problems Problem Status Onset Acute pancreatitis Acute Pancreatic mass Acute Abdominal pain Acute
[2017-10-13] MEDS: ALTEPLASE 2 MG VIAL IVP PRN ×2 (13:47→13:48)
[2017-10-13] MEDS: fentaNYL 100 MCG PATCH TD SCH (13:48)
[2017-10-13] MEDS: LORazepam 2 MG/ML INJ IVP PRN (13:48)
[2017-10-13] MEDS: LR 1,000 ML IV SCH (14:50)
[2017-10-13] MEDS: HYDROmorphONE/DILAUDID 6 MG/30 ML PCA IV PRN (14:51)
--- NOTE | 2017-10-13 15:54 | HOSPPROG ---
Hospitalist Progress Note Assessment/Plan: Assessment: 52 yo F p/w acute pancreatitis in setting of stage IV pancreatic cancer c/b ongoing severe abdominal pain # Acute pancreatitis - likely due to obstruction from tumor, with inflammatory component, worsening 10/12 w/ rising lipase and worsening pain today, further w/ u indicated - cont fent patch, PRN morphine, escalating to dilaudid METAL STAMPING MACHINE OPERATOR if able to use PICC - d/w Dr. Waggoner, we agree to cont diet NPO w/ sips/chips and gauge tolerance, start METAL STAMPING MACHINE OPERATOR, cont TPN - get CXR to eval for PICC malpositioning, per Dr. Montoya request, then will replace if necessary # Stage IV Pancreatic cancer w/ liver mets - D#5 FOLFIRINOX - s/p port placement with Dr. Nair - suspect that at least some component of her discomfort is driven by her recent chemo and malignancy - introduced PO ativan for nausea (IV as breakthrough) # H. Pylori gastritis - s/p Biaxin, Flagyl, now just on PPI / carafate # HTN - chronic, cont lisinopril Diet - TPN, NPO Code - Full PPx - high risk, lovenox 40 Dispo - ADD uncertain, pending tolerance of chemo and resolution of pancreatitis Subjective: patient w/ worse central abd pain Objective: Vital Signs Temp Pulse Resp BP Pulse Ox 37.1 C 91 14 109/69 94 10/13/17 15:14 10/13/17 15:14 10/13/17 15:14 10/13/17 15:14 10/13/17 15:14 Laboratory Results 10/12/17 04:30 10/13/17 05:30 10/12/17 10/13/17 10/14/17 05:59 05:59 05:59 Intake Total 2322 676 Output Total 1200 1 Balance 1122 675 PT 14.4 SEC (12.0-15.0) 10/11/17 06:15 INR 1.10 (0.83-1.16) 10/11/17 06:15 - Physical Exam Constitutional: chronically ill appearing, uncomfortable, No not in pain ( moderate), No obese Cardiovascular: tachycardia, No systolic murmur, No irregularly irregular, No edema Respiratory: reduced air movement (poor insp effort), No expiratory wheeze, No inspiratory crackles, No bronchial breath sounds Gastrointestinal: tenderness (mid-epigastric area), guarding (voluntary), No normoactive bowel sounds (hypoactive bowel sounds), No distension Neurologic: AAOx3 Psychiatric: not encephalopathic, anxious, flat affect, No agitated ICD10 Worksheet Patient Problems: Problems Problem Status Onset Abdominal pain Acute Pancreatic mass Acute Acute pancreatitis Acute
[2017-10-13] MEDS: FILGRASTIM-SNDZ 300 MCG/0.5 ML SYR SC SCH (16:20)
[2017-10-13] MEDS: TPN 1 EA BAG IV SCH (20:37)
[2017-10-14] MEDS: SUCRALFATE 1 GM/10 ML UDCUP PO SCH ×5 (00:07→20:50)
[2017-10-14] MEDS: INSULIN REGULAR HUMAN 100 UNIT/ML UNIT SC SCH ×4 (04:55→18:20)
[2017-10-14] MEDS: HYDROmorphONE/DILAUDID 6 MG/30 ML PCA IV PRN ×2 (04:56→14:53)
[2017-10-14] MEDS: LR 1,000 ML IV SCH (05:00)
[2017-10-14 05:33] LABS: PLATELET COUNT 215 10^3/uL (150-400)
[2017-10-14] MEDS: ENOXAPARIN 40 MG/0.4 ML SYR SC SCH (09:04)
[2017-10-14] MEDS: lamoTRIgine 100 MG TAB PO SCH (09:04)
[2017-10-14] MEDS: PANTOPRAZOLE SODIUM 40 MG VIAL IVP SCH ×2 (09:04→20:50)
[2017-10-14] MEDS ORDERED: MBX SOLN 30 ML BOTTLE PO PRN (10:54)
[2017-10-14] MEDS ORDERED: BIOTENE DRY MOUTH MOUTHWASH 237 ML BTL MM PRN (10:55)
[2017-10-14] MEDS ORDERED: IOPAMIDOL (ISOVUE-300) 100 ML BTL ONE (11:20)
--- NOTE | 2017-10-14 14:18 | SOAPPROG ---
[facility] Progress Note Assessment/Plan: Assessment: - Acute pancreatitis - Her pain is MUCH better today. She is remaining NPO. Lipase is coming down. - Pancreatic CA - locally advanced with liver mets biopsy proven on laparoscopy. Today is C1D6 Folfirinox. First re-evaluation point just before Cycle 3 - Pain - adequate control at this time. - Nutrition - will continue TPN. This will need to continue at home. - DVT prophylaxis: Lovenox. Abdominal CT doesn't show much change. Necrotic pancreatic mass is unchanged. No necrosis of the remainder of the pancreas is seen. Plan: Dilaudid INFORMATION SYSTEMS OPERATOR Topical fentanyl NPO/TPN Monitor lipase Subjective: Sitting up. Smiling and laughing with her children and mother. Objective: Vital Signs Temp Pulse Resp BP Pulse Ox 37.1 C 100 16 120/82 H 95 10/14/17 11:50 10/14/17 14:04 10/14/17 14:04 10/14/17 14:04 10/14/17 14:04 Laboratory Results 10/14/17 05:00 10/14/17 05:00 10/12/17 10/13/17 10/14/17 23:59 23:59 23:59 Intake Total 781 3002 1933.7 Output Total 1 Balance 781 3001 1933.7 PT 14.4 SEC (12.0-15.0) 10/11/17 06:15 INR 1.10 (0.83-1.16) 10/11/17 06:15 Physical Exam - Physical Exam General Appearance: alert, no apparent distress ICD10 Worksheet Patient Problems: Problems Problem Status Onset Acute pancreatitis Acute Pancreatic mass Acute Abdominal pain Acute
--- NOTE | 2017-10-14 15:41 | ASMTCMCOM ---
CM Note CM Note Notes: Pt starting to feel better, walking in the [place] and smiling more. Her children have been visiting most of the day. Pt has asked for help with her MOST form and advice on filling out her FMLA. She asked case mgmt to come tomorrow. She also requested that no chaplains visit her. Pt will have [employer] for TPN at [place]. No HC has been set up yet. CM to follow. Date Signed: 10/14/2017 03:40 PM Electronically Signed By:Sharmila Srivastava LCSW
[2017-10-14] MEDS: FILGRASTIM-SNDZ 300 MCG/0.5 ML SYR SC SCH (16:12)
--- NOTE | 2017-10-14 19:56 | HOSPPROG ---
Hospitalist Progress Note Assessment/Plan: Assessment: 52 yo F p/w acute pancreatitis in setting of stage IV pancreatic cancer c/b ongoing severe abdominal pain Plan: # Acute pancreatitis - likely due to obstruction from tumor, with inflammatory component, worsening 10/12 w/ rising lipase requiring MACHINE SETUP OPERATOR - cont fent patch, cont MACHINE SETUP OPERATOR (responding well to the increase in her control over her pain), cycle in PO dilaudid when able - given ongoing poor PO intake, cont TPN - counseled patient that she will likely require TPN at discharge (case mgmt arranging) given her ongoing inability to tolerate any substantial PO intake, and I anticipate that given that the pancreatitis is 2/2 the malignancy, resolution will likely be protracted - given the rising WBC today (could be 2/2 filgrastim), and protracted nature of pain, had CT to r/o necrotizing pancreatitis (none noted, necrotizing malignancy relatively unchanged from prior) # Stage IV Pancreatic cancer w/ liver mets - C1D6 FOLFIRINOX - s/p port placement with Dr. Nair - suspect that at least some component of her discomfort is driven by her recent chemo and malignancy - cont PO ativan for nausea (IV as breakthrough) - adjusted from salt/soda rinse to magic mouthwash +/- biotene, per patient request - patient would like [facility] from [facility], d/w RN, requested that call go to [facility] in AM - patient would like NO visits from tour agent services, and she does not want palliative consult at this time - she requested case mgmt assist w/ MOST completion - given her stress regarding work and ongoing hospitalization / cancer care, I recommended considering FMLA and asked case mgmt to d/w patient # H. Pylori gastritis - s/p Biaxin, Flagyl, now just on PPI / carafate # HTN - chronic, cont lisinopril Diet - TPN, NPO w/ sips/chips Code - Full PPx - high risk, lovenox 40 Dispo - ADD uncertain, pending tolerance of chemo and resolution of pancreatitis Subjective: ongoing discomfort, less than day prior, very stressed by her work and cancer care Objective: Vital Signs Temp Pulse Resp BP Pulse Ox 36.9 C 101 H 16 123/73 H 93 10/14/17 19:43 10/14/17 19:43 10/14/17 19:43 10/14/17 19:43 10/14/17 19:43 Laboratory Results 10/14/17 05:00 10/14/17 05:00 10/13/17 10/14/17 10/15/17 05:59 05:59 05:59 Intake Total 676 4259.7 1749 Output Total 1 Balance 675 4259.7 1749 PT 14.4 SEC (12.0-15.0) 10/11/17 06:15 INR 1.10 (0.83-1.16) 10/11/17 06:15 - Time Spent With Patient Time Spent with Patient: greater than 35 minutes Time Spent with Patient: Greater than 35 minutes spent on this patients care, greater than 50% of time spent counseling, educating, and coordinating care regarding the above mentioned plan. - Physical Exam Constitutional: uncomfortable Cardiovascular: regular rate and rhythym, no murmur, rub, or gallop Respiratory: no respiratory distress, no rales or rhonchi, clear to auscultation Gastrointestinal: tenderness (mid-epigastric ), guarding (voluntary in mid- epigastric), distension (mild), No normoactive bowel sounds (hypoactive) Neurologic: AAOx3 Psychiatric: interacting appropriately, not encephalopathic, thought process linear, anxious, No agitated ICD10 Worksheet Patient Problems: Problems Problem Status Onset Abdominal pain Acute Pancreatic mass Acute Acute pancreatitis Acute
[2017-10-14] MEDS: LORazepam 2 MG/ML INJ IVP PRN (22:07)
[2017-10-14] MEDS: TPN 1 EA BAG IV SCH (22:16)
[2017-10-15] MEDS: INSULIN REGULAR HUMAN 100 UNIT/ML UNIT SC SCH ×5 (00:57→19:07)
[2017-10-15] MEDS: HYDROmorphONE/DILAUDID 6 MG/30 ML PCA IV PRN ×2 (02:11→10:37)
[2017-10-15] MEDS: SUCRALFATE 1 GM/10 ML UDCUP PO SCH ×4 (05:23→20:45)
[2017-10-15] MEDS: LR 1,000 ML IV SCH ×3 (05:39→17:58)
[2017-10-15 05:54] LABS: PLATELET COUNT 155 10^3/uL (150-400)
[2017-10-15 06:02] LABS: INR 1.14 (0.83-1.16); PROTIME(PATIENT) 14.8 SEC (12.0-15.0)
[2017-10-15] MEDS: LORazepam 2 MG/ML INJ IVP PRN ×3 (06:33→20:45)
--- NOTE | 2017-10-15 09:04 | HOSPPROG ---
Hospitalist Progress Note Assessment/Plan: Assessment: 52 yo F p/w acute pancreatitis in setting of stage IV pancreatic cancer c/b ongoing severe abdominal pain Plan: Acute pancreatitis -necrosis on CT but clinically not c/w necrotizing pancreatitis has pain but may be 2/2 tumor trial of clear liquids today Stage IV Pancreatic cancer w/ liver mets - C1D6 FOLFIRINOX s/p port placement with Dr. Nair cont PO ativan for nausea (IV as breakthrough) next chemo per oncology H. 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 ready to try clears. CT images from yesterday reviewed by me Objective: Vital Signs Temp Pulse Resp BP Pulse Ox 36.9 C 90 16 132/80 H 94 10/15/17 08:10 10/15/17 08:10 10/15/17 08:10 10/15/17 08:10 10/15/17 08:10 Laboratory Results 10/15/17 05:30 10/15/17 05:30 10/14/17 10/15/17 10/16/17 05:59 05:59 05:59 Intake Total 4259.7 4154 Balance 4259.7 4154 PT 14.8 SEC (12.0-15.0) 10/15/17 05:30 INR 1.14 (0.83-1.16) 10/15/17 05:30 - Physical Exam Constitutional: no apparent distress, appears nourished Eyes: PERRL, anicteric sclera Ears, Nose, Mouth, Throat: moist mucous membranes, hearing normal Cardiovascular: regular rate and rhythym, no murmur, rub, or gallop Respiratory: no respiratory distress, no rales or rhonchi Gastrointestinal: normoactive bowel sounds, soft, non-tender abdomen, No guarding, No rebound Genitourinary: no bladder fullness, potter in urethra Skin: warm, normal color Musculoskeletal: full muscle strength Neurologic: AAOx3 ICD10 Worksheet Patient Problems: Problems Problem Status Onset Acute pancreatitis Acute Pancreatic mass Acute Abdominal pain Acute
--- NOTE | 2017-10-15 09:32 | SOAPPROG ---
SOAP Progress Note Assessment/Plan: Assessment: 1. Metastatic pancreatic cancer 2. Liver metastases 3. Acute pancreatitis on TPN Plan: - advance diet slowly - pt strongly prefers to be off TPN at the time of discharge - next cycle of chemo (FOLFIRINOX) due 2/10/15/17 09:31 Subjective: abd pain better. Objective: exam: thin, NAD Lungs CTAB CV RRR no MGR Abd: +BS ND NT Ext: no edema Neuro: a+ox3 Vital Signs Temp Pulse Resp BP Pulse Ox 36.9 C 90 16 132/80 H 94 10/15/17 08:10 10/15/17 08:10 10/15/17 08:10 10/15/17 08:10 10/15/17 08:10 Laboratory Results 10/15/17 05:30 10/15/17 05:30 10/14/17 10/15/17 10/16/17 05:59 05:59 05:59 Intake Total 4259.7 4154 Balance 4259.7 4154 PT 14.8 SEC (12.0-15.0) 10/15/17 05:30 INR 1.14 (0.83-1.16) 10/15/17 05:30 - Time Spent With Patient Time Spent With Patient: 25 min ICD10 Worksheet Patient Problems: Problems Problem Status Onset Acute pancreatitis Acute Pancreatic mass Acute Abdominal pain Acute
[2017-10-15] MEDS: lamoTRIgine 100 MG TAB PO SCH (10:01)
[2017-10-15] MEDS: PANTOPRAZOLE SODIUM 40 MG VIAL IVP SCH ×2 (10:01→20:45)
[2017-10-15] MEDS: ENOXAPARIN 40 MG/0.4 ML SYR SC SCH (10:02)
[2017-10-15] MEDS: POLYETHYLENE GLYCOL 3350 17 GM PKT PO PRN (14:54)
[2017-10-15] MEDS: FILGRASTIM-SNDZ 300 MCG/0.5 ML SYR SC SCH (14:57)
--- NOTE | 2017-10-15 16:28 | ASMTCMCOM ---
CM Note CM Note Notes: Pt advancing diet slowly; strongly prefers to be off TPN at time of dc. Estefania, from [facility], onsite & updated. Estefania will continue to follow in case pt does need TPN at time of dc. No HHC previously arranged. BRUNO will continue to follow. DC plan: TBD Date Signed: 10/15/2017 04:27 PM Electronically Signed By:Elba Newby RN
[2017-10-15] MEDS: TPN 1 EA BAG IV SCH (21:32)
[2017-10-15] MEDS: BISMUTH SUBSALICYLATE 524 MG/30 ML UDL PO PRN (22:36)
[2017-10-15] MEDS: traMADol 50 MG TAB PO PRN (22:39)
[2017-10-15] MEDS: ALPRAZolam 0.25 MG TAB PO PRN (23:33)
[2017-10-16] MEDS: INSULIN REGULAR HUMAN 100 UNIT/ML UNIT SC SCH ×2 (01:15→06:29)
[2017-10-16] MEDS: LORazepam 2 MG/ML INJ IVP PRN ×2 (01:15→04:59)
[2017-10-16] MEDS: HYDROmorphONE/DILAUDID 6 MG/30 ML PCA IV PRN ×2 (01:16→17:45)
[2017-10-16] MEDS: LR 1,000 ML IV SCH ×4 (01:25→20:38)
[2017-10-16] MEDS: SUCRALFATE 1 GM/10 ML UDCUP PO SCH ×4 (06:29→20:38)
--- NOTE | 2017-10-16 08:58 | SOAPPROG ---
[facility] Progress Note Assessment/Plan: Assessment: 1. Metastatic pancreatic cancer 2. Liver metastases 3. Acute pancreatitis on TPN Plan: - advance diet slowly - pt strongly prefers to be off TPN at the time of discharge - next cycle of chemo (FOLFIRINOX) due 2/5 - continue 5 day course of neupogen 10/15/17 09:31 10/16/17 08:57 Subjective: feels better today. no problems w/ clears yesterday. Objective: exam: comfortable, NAD Lungs CTAB CV RRR no MGR Abd: +BS NT ND Ext: no edema Vital Signs Temp Pulse Resp BP Pulse Ox 37 C 95 16 137/83 H 94 10/16/17 08:52 10/16/17 08:52 10/16/17 08:52 10/16/17 08:52 10/16/17 08:52 Laboratory Results 10/15/17 05:30 10/15/17 05:30 10/15/17 10/16/17 10/17/17 05:59 05:59 05:59 Intake Total 4154 2472.1 Balance 4154 2472.1 PT 14.8 SEC (12.0-15.0) 10/15/17 05:30 INR 1.14 (0.83-1.16) 10/15/17 05:30 ICD10 Worksheet Patient Problems: Problems Problem Status Onset Acute pancreatitis Acute Pancreatic mass Acute Abdominal pain Acute
[2017-10-16] MEDS: PANTOPRAZOLE SODIUM 40 MG VIAL IVP SCH ×2 (09:15→20:38)
[2017-10-16] MEDS: ENOXAPARIN 40 MG/0.4 ML SYR SC SCH (09:15)
[2017-10-16] MEDS: lamoTRIgine 100 MG TAB PO SCH (09:15)
--- NOTE | 2017-10-16 10:18 | HOSPPROG ---
Hospitalist Progress Note Assessment/Plan: Assessment: 52 yo F p/w acute pancreatitis in setting of stage IV pancreatic cancer c/b ongoing severe abdominal pain Plan: Acute pancreatitis -necrosis on CT but clinically not c/w necrotizing pancreatitis has pain but may be 2/2 tumor tolerated clear liquids continue clear liquids dc TPN- I suspect this will increase appetite Stage IV Pancreatic cancer w/ liver mets - C1D6 FOLFIRINOX s/p port placement with Dr. Nair cont PO ativan for nausea (IV as breakthrough) next chemo per oncology H. Pylori gastritis - s/p Biaxin, Flagyl, now just on PPI / carafate HTN - chronic, cont lisinopril pain: interactive developer and fentanyl patch Code - Full PPx - high risk, lovenox 40 Dispo - ADD uncertain, pending tolerance of chemo and resolution of pancreatitis Subjective: case d/w Dr. Elder. tolerating clears but had abdominal pain last evening after emotionally charged conversation w ex peterand Objective: Vital Signs Temp Pulse Resp BP Pulse Ox 37 C 93 16 140/83 H 95 10/16/17 08:52 10/16/17 09:57 10/16/17 09:57 10/16/17 09:57 10/16/17 09:57 Laboratory Results 10/15/17 05:30 10/15/17 05:30 10/15/17 10/16/17 10/17/17 05:59 05:59 05:59 Intake Total 4154 2472.1 Balance 4154 2472.1 PT 14.8 SEC (12.0-15.0) 10/15/17 05:30 INR 1.14 (0.83-1.16) 10/15/17 05:30 - Physical Exam Constitutional: no apparent distress, appears nourished Eyes: PERRL, anicteric sclera Ears, Nose, Mouth, Throat: moist mucous membranes, hearing normal Cardiovascular: regular rate and rhythym, no murmur, rub, or gallop Respiratory: no respiratory distress, no rales or rhonchi Gastrointestinal: normoactive bowel sounds, soft, non-tender abdomen, No guarding, No rebound Genitourinary: no bladder fullness, No potter in urethra Skin: warm, normal color Musculoskeletal: full muscle strength Neurologic: AAOx3 Psychiatric: interacting appropriately Lymph, Heme, Immunologic: no cervical LAD ICD10 Worksheet Patient Problems: Problems Problem Status Onset Acute pancreatitis Acute Pancreatic mass Acute Abdominal pain Acute
[2017-10-16] MEDS: LORazepam 1 MG TAB PO PRN ×2 (11:02→16:16)
[2017-10-16] MEDS: fentaNYL 100 MCG PATCH TD SCH (14:10)
[2017-10-16] MEDS: FILGRASTIM-SNDZ 300 MCG/0.5 ML SYR SC SCH (16:16)
[2017-10-16] MEDS: BISACODYL 10 MG SUPP PR PRN (16:16)
[2017-10-16] MEDS ORDERED: LORazepam 2 MG/ML INJ IVP ONE (18:23)
[2017-10-17] MEDS: BISMUTH SUBSALICYLATE 524 MG/30 ML UDL PO PRN (00:19)
[2017-10-17] MEDS: LR 1,000 ML IV SCH ×2 (02:34→09:24)
[2017-10-17] MEDS: SUCRALFATE 1 GM/10 ML UDCUP PO SCH ×4 (06:17→19:56)
[2017-10-17] MEDS: HYDROmorphONE/DILAUDID 6 MG/30 ML PCA IV PRN (06:37)
[2017-10-17] MEDS: ENOXAPARIN 40 MG/0.4 ML SYR SC SCH (09:08)
[2017-10-17] MEDS: lamoTRIgine 100 MG TAB PO SCH (09:08)
[2017-10-17] MEDS: PANTOPRAZOLE SODIUM 40 MG VIAL IVP SCH (09:08)
[2017-10-17] MEDS: LORazepam 2 MG/ML INJ IVP PRN ×3 (09:19→19:50)
--- NOTE | 2017-10-17 09:50 | SOAPPROG ---
SOAP Progress Note Assessment/Plan: Assessment: 1. Metastatic pancreatic cancer 2. Liver metastases 3. Acute pancreatitis. 4. L arm swelling Plan: - advance diet. off TPN now. - next cycle of chemo (FOLFIRINOX) due 2/5 - continue 5 day course of neupogen - u/s L arm to r/o DVT (had PICC in that arm) 10/15/17 09:31 10/16/17 08:57 10/17/17 09:50 Subjective: feeling better. no pain w/ eating. Objective: exam: Gen: NAD Lungs: CTAB CV RRR no MGR Abd: +BS NT ND Ext: no edema Vital Signs Temp Pulse Resp BP Pulse Ox 36.8 C 84 18 137/75 H 95 10/17/17 08:15 10/17/17 08:15 10/17/17 08:15 10/17/17 08:15 10/17/17 08:15 Laboratory Results 10/15/17 05:30 10/17/17 06:20 10/16/17 10/17/17 10/18/17 05:59 05:59 05:59 Intake Total 2472.1 1888.7 1961.2 Balance 2472.1 1888.7 1961.2 PT 14.8 SEC (12.0-15.0) 10/15/17 05:30 INR 1.14 (0.83-1.16) 10/15/17 05:30 ICD10 Worksheet Patient Problems: Problems Problem Status Onset Acute pancreatitis Acute Pancreatic mass Acute Abdominal pain Acute
--- NOTE | 2017-10-17 09:54 | HOSPPROG ---
Hospitalist Progress Note Assessment/Plan: Assessment: 52 yo F p/w acute pancreatitis in setting of stage IV pancreatic cancer c/b ongoing severe abdominal pain Plan: Acute pancreatitis -necrosis on CT but clinically not c/w necrotizing pancreatitis this has resolved ADAT LUE edema: ultrasound today has been on prophylaxis Stage IV Pancreatic cancer w/ liver mets - C1D6 FOLFIRINOX s/p port placement with Dr. Nair cont PO ativan for nausea (IV as breakthrough) next chemo per oncology H. 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 Code - Full PPx - high risk, lovenox 40 Dispo - ADD uncertain, pending tolerance of chemo and resolution of pancreatitis Subjective: case d/w dr covington Objective: Vital Signs Temp Pulse Resp BP Pulse Ox 36.8 C 84 18 137/75 H 95 10/17/17 08:15 10/17/17 08:15 10/17/17 08:15 10/17/17 08:15 10/17/17 08:15 Laboratory Results 10/15/17 05:30 10/17/17 06:20 10/16/17 10/17/17 10/18/17 05:59 05:59 05:59 Intake Total 2472.1 1888.7 1961.2 Balance 2472.1 1888.7 1961.2 PT 14.8 SEC (12.0-15.0) 10/15/17 05:30 INR 1.14 (0.83-1.16) 10/15/17 05:30 - Physical Exam Constitutional: no apparent distress, appears nourished Eyes: PERRL, anicteric sclera Ears, Nose, Mouth, Throat: moist mucous membranes, hearing normal Cardiovascular: regular rate and rhythym, no murmur, rub, or gallop Respiratory: no respiratory distress, no rales or rhonchi Gastrointestinal: normoactive bowel sounds, soft, non-tender abdomen Genitourinary: No potter in urethra Skin: warm, normal color Musculoskeletal: other (LUE edema. ) Neurologic: AAOx3, sensation intact bilaterally Psychiatric: interacting appropriately, not anxious Lymph, Heme, Immunologic: no cervical LAD ICD10 Worksheet Patient Problems: Problems Problem Status Onset Acute pancreatitis Acute Pancreatic mass Acute Abdominal pain Acute
[2017-10-17] MEDS: HYDROmorphONE/DILAUDID 2 MG TAB PO PRN ×2 (14:28→18:15)
[2017-10-17] MEDS: RIVAROXABAN 15 MG TAB PO SCH (18:14)
[2017-10-17] MEDS: traMADol 50 MG TAB PO PRN (18:14)
[2017-10-17] MEDS: PANTOPRAZOLE SODIUM 40 MG TAB PO SCH (19:51)
[2017-10-18] MEDS: LORazepam 1 MG TAB PO PRN (03:05)
[2017-10-18 03:08] VITALS: TEMP 97.9; O2SAT 93
[2017-10-18] MEDS: HYDROmorphONE/DILAUDID 2 MG TAB PO PRN ×2 (04:21→08:20)
[2017-10-18] MEDS: SUCRALFATE 1 GM/10 ML UDCUP PO SCH (04:22)
[2017-10-18] MEDS: BISMUTH SUBSALICYLATE 524 MG/30 ML UDL PO PRN (04:23)
[2017-10-18] MEDS: BISACODYL 10 MG SUPP PR PRN (04:26)
[2017-10-18] MEDS: PROCHLORPERAZINE MALEATE 5 MG TAB PO PRN (08:20)
[2017-10-18] MEDS: lamoTRIgine 100 MG TAB PO SCH (08:21)
[2017-10-18] MEDS: RIVAROXABAN 15 MG TAB PO SCH (08:21)
[2017-10-18] MEDS: PANTOPRAZOLE SODIUM 40 MG TAB PO SCH (08:21)
[2017-10-18 08:36] VITALS: BP 135/87; PULSE 87; RESP 17
--- NOTE | 2017-10-18 10:00 | SOAPPROG ---
[facility] Progress Note Assessment/Plan: Assessment: 1. Metastatic pancreatic cancer 2. Liver metastases 3. Acute pancreatitis. 4. L arm DVT - short segment; PICC associated Plan: - next cycle of chemo (FOLFIRINOX) due 10/23 - to see Dr. Morataya on Sunday - DVT - will treat w/ Xarelto for 6-8 weeks and then reimage. 25 min spent w/ pt and in coordination of care. Subjective: feels well. ready to go home Objective: exam unchanged Vital Signs Temp Pulse Resp BP Pulse Ox 36.6 C 87 17 135/87 H 93 10/18/17 03:08 10/18/17 08:35 10/18/17 08:35 10/18/17 08:35 10/18/17 08:35 Laboratory Results 10/15/17 05:30 10/17/17 06:20 10/17/17 10/18/17 10/19/17 05:59 05:59 05:59 Intake Total 1888.7 2461.2 Balance 1888.7 2461.2 PT 14.8 SEC (12.0-15.0) 10/15/17 05:30 INR 1.14 (0.83-1.16) 10/15/17 05:30 ICD10 Worksheet Patient Problems: Problems Problem Status Onset Acute pancreatitis Acute Pancreatic mass Acute Abdominal pain Acute
--- NOTE | 2017-10-18 10:01 | HOSPPROG ---
Hospitalist Progress Note Assessment/Plan: Assessment: 52 yo F p/w acute pancreatitis in setting of stage IV pancreatic cancer c/b ongoing severe abdominal pain Plan: Acute pancreatitis -necrosis on CT but clinically not c/w necrotizing pancreatitis this has resolved ADAT LUE edema: ultrasound today has been on prophylaxis Stage IV Pancreatic cancer w/ liver mets - C1D6 FOLFIRINOX s/p port placement with Dr. Korey huang PO ativan for nausea (IV as breakthrough) next chemo per oncology H. 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 Code - Full PPx - high risk, lovenox 40 Dispo - home today > 30 minutes Subjective: ameNABLE to dc Objective: Vital Signs Temp Pulse Resp BP Pulse Ox 36.6 C 87 17 135/87 H 93 10/18/17 03:08 10/18/17 08:35 10/18/17 08:35 10/18/17 08:35 10/18/17 08:35 Laboratory Results 10/15/17 05:30 10/17/17 06:20 10/17/17 10/18/17 10/19/17 05:59 05:59 05:59 Intake Total 1888.7 2461.2 Balance 1888.7 2461.2 PT 14.8 SEC (12.0-15.0) 10/15/17 05:30 INR 1.14 (0.83-1.16) 10/15/17 05:30 - Physical Exam Constitutional: no apparent distress, appears nourished Eyes: PERRL, anicteric sclera Ears, Nose, Mouth, Throat: moist mucous membranes, hearing normal Cardiovascular: regular rate and rhythym, no murmur, rub, or gallop Respiratory: no respiratory distress, no rales or rhonchi Gastrointestinal: normoactive bowel sounds, soft, non-tender abdomen Genitourinary: no bladder fullness, No potter in urethra Skin: warm, normal color Musculoskeletal: full muscle strength, no muscle tenderness Neurologic: AAOx3 ICD10 Worksheet Patient Problems: Problems Problem Status Onset Acute pancreatitis Acute Pancreatic mass Acute Abdominal pain Acute
--- NOTE | 2017-10-18 10:41 | GDS ---
[f rep st] DISCHARGE SUMMARY DISCHARGE DIAGNOSES: 1. Pancreatic cancer with hepatic metastases. 2. Pancreatitis. 3. Abdominal pain. 4. Helicobacter pylori positivity. CONSULTATIONS: Gastroenterology, Oncology, and General Surgery. PROCEDURES /OPERATIONS: She had a liver biopsy on demonstrating metastatic adenocarcinoma consistent with cancer primary. This was a new discovery of metastasis. She also had a port placed, both by Dr. Genaro Narayan. HOSPITAL COURSE: The patient's pancreatitis has slowly resolved. Her diet was advanced. She did well. She has also had abdominal pain. The patient is discharged home with prescriptions for pain medicines, including a fentanyl patch, nausea medicines. The patient had a PICC line with edema of her left arm. Ultrasound revealed very short deep venous thrombosis. The plan is for 2-3 weeks of anticoagulation , followed by reimaging. If ultrasound is negative, to discontinue anticoagulation. Discussed this with Dr. Nicole Morataya, her primary oncologist. Greater than 30 minutes spent in the preparation of this discharge. /[id number]/MODL MTDD
--- NOTE | 2017-10-18 11:16 | ASDISCHSUM ---
Discharge Information Plan Status: Medically Cleared to Leave: Discharge Date: CM D/C Disposition: ADT D/C Disposition: Projected Discharge Date:10/15/2017 11:00 AM Transportation at D/C: Discharge Delay Reason: Follow-Up Date:10/15/2017 11:00 AM Discharge Slot: Final Diagnosis: Placement Information Referral Type:Home Infusion Referral ID:[id number] Provider Name: Address 1: Phone Number: Address 2: Fax Number: City: Selection Factors: State: Patient Contact Information Contact Name:FREDI Relationship: Address:[address] City:[place] Alternate Phone: State/Zip Code:[place] [address] Email: Financial Information Financial Class:HMO and PPO Plans Primary Plan Desc:[employer] PPO Primary Plan Number:[id number] Secondary Plan Desc:[employer] Secondary Plan Number:[id number] Assessment Information [facility] CM Progress Note CM Note CM Note Notes: Pt with recent dx of pancreatic ca admitted for pancreatitis. Pt's DC needs are unclear at this time. CM will continue to follow. Date Signed: 10/04/2017 04:54 PM Electronically Signed By:Sharmila Srivastava LCSW [facility] CM Progress Note CM Note CM Note Notes: Pt has been in surgery all afternoon for port placement and liver biopsy. Pt's DC needs TBD. She may benefit from home care and/or community-based palliative care. Her mother asked that a letter to the [employer] be written for mother to change her flight back to [place] so that she continue to care for her dtr. Letter provided. Pt also needs a letter but has been in surgery so details will need to be provided by pt later today or tomorrow. CM will continue to follow. Date Signed: 10/05/2017 03:20 PM Electronically Signed By:Sharmila Srivastava LCSW [facility] CM Progress Note CM Note CM Note Notes: CM provided letters to pt for herself and her daughter for their airline reservations. Copies in chart. Date Signed: 10/06/2017 04:20 PM Electronically Signed By:ALFRED Elam [facility] CM Progress Note CM Note CM Note Notes: Amisha from Palliative care met w/pt today; she said that pt would benefit from social work visit, stating that pt recently and has two kids ages 13 and 15 and pancreatic Ca diagnosis. Date Signed: 10/08/2017 04:56 PM Electronically Signed By:Diane Garduno RN [facility] CM Progress Note CM Note CM Note Notes: Pt would benefit from social work or memory care director visit, unable to happen today; would be helpful if this can happen tomorrow 10/11. Date Signed: 10/10/2017 06:19 PM Electronically Signed By:Diane Garduno RN [facility] CM Progress Note CM Note CM Note Notes: Attempted to meet with pt to provide support and discuss DC planning. Pt very sleep and asked for CM to come back. Pt did give permission to get benefits for cyclic home TPN. CM to follow. Date Signed: 10/11/2017 02:53 PM Electronically Signed By:Sharmila Srivastava LCSW [facility] CM Progress Note CM Note CM Note Notes: Multiple attemptes were made to meet with pt for support. Pt is not interested yet in meeting with anyone. She also declined [employer] support person to discuss TPN. Her TPN will covered at 100% once she meets her [id number] which is likely after DC. MD marcial PT/CORNELIO tejada. CM will continue to attempt to meet with pt for DC needs, support and resources. Date Signed: 10/12/2017 02:42 PM Electronically Signed By:Sharmila Srivastava LCSW [facility] CM Progress Note CM Note CM Note Notes: Pt starting to feel better, walking in the [place] and smiling more. Her children have been visiting most of the day. Pt has asked for help with her MOST form and advice on filling out her FMLA. She asked case mgmt to come tomorrow. She also requested that no chaplains visit her. Pt will have erita for TPN at [place]. No HC has been set up yet. CM to follow. Date Signed: 10/14/2017 03:40 PM Electronically Signed By:Sharmila Srivastava LCSW [facility] CM Progress Note CM Note CM Note Notes: Pt advancing diet slowly; strongly prefers to be off TPN at time of dc. Estefania, from [facility], onsite & updated. Estefania will continue to follow in case pt does need TPN at time of dc. No C previously arranged. CM will continue to follow. DC plan: TBD Date Signed: 10/15/2017 04:27 PM Electronically Signed By:Elba Newby RN [facility] CM Progress Note CM Note CM Note Notes: Pt ready for DC today. She is no longer on TPN. Mary Anne notified. Met with pt who stated she has no DC needs. Her mother is staying with her from out of town and she states her ex- is very supportive. She has friends bringing food. She asked for paperwork for MDPOA and adv directives that she will fill out at next MD appt. Date Signed: 10/18/2017 11:15 AM Electronically Signed By:Sharmila Srivastava LCSW Intervention Information
== END 2017-10-18 11:20 | disposition home or self-care (01) | DRG 421 ==
LOC: F1N 03:31
PROVIDERS: ADMIT Family Medicine; ATTEND Internal Medicine
PROC: B5191ZZ Fluoroscopy of Inferior Vena Cava using Low Osmolar Contrast (ICD-10-PCS; principal; 2017-10-05 09:45)
PROC: 0FB14ZX Excision of Right Lobe Liver, Percutaneous Endoscopic Approach, Diagnostic (ICD-10-PCS; principal; 2017-10-05 09:45)
PROC: 06H033Z Insertion of Infusion Device into Inferior Vena Cava, Percutaneous Approach (ICD-10-PCS; principal; 2017-10-05 09:45)
PROC: 0JH60XZ Insertion of Tunneled Vascular Access Device into Chest Subcutaneous Tissue and Fascia, Open Approach (ICD-10-PCS; principal; 2017-10-05 09:45)
PROC: 0FB24ZX Excision of Left Lobe Liver, Percutaneous Endoscopic Approach, Diagnostic (ICD-10-PCS; principal; 2017-10-05 09:45)
PROC: 02HV33Z Insertion of Infusion Device into Superior Vena Cava, Percutaneous Approach (ICD-10-PCS; 2017-10-08)
PROC: B5181ZZ Fluoroscopy of Superior Vena Cava using Low Osmolar Contrast (ICD-10-PCS; 2017-10-08)
PROC: 3E03305 Introduction of Other Antineoplastic into Peripheral Vein, Percutaneous Approach (ICD-10-PCS; 2017-10-09)
PROC: 02PY33Z Removal of Infusion Device from Great Vessel, Percutaneous Approach (ICD-10-PCS; 2017-10-13)
PROC: 02HV33Z Insertion of Infusion Device into Superior Vena Cava, Percutaneous Approach (ICD-10-PCS; 2017-10-13)
PROC: B5181ZZ Fluoroscopy of Superior Vena Cava using Low Osmolar Contrast (ICD-10-PCS; 2017-10-13)
DX: K85.90 Acute pancreatitis without necrosis or infection, unspecified (principal); C25.9 Malignant neoplasm of pancreas, unspecified; C78.7 Secondary malignant neoplasm of liver and intrahepatic bile duct; G89.3 Neoplasm related pain (acute) (chronic); T82.868A Thrombosis due to vascular prosthetic devices, implants and grafts, initial encounter; I82.622 Acute embolism and thrombosis of deep veins of left upper extremity; B96.81 Helicobacter pylori [H. pylori] as the cause of diseases classified elsewhere; I10 Essential (primary) hypertension; R00.2 Palpitations; R07.89 Other chest pain; K29.70 Gastritis, unspecified, without bleeding; F32.9 Major depressive disorder, single episode, unspecified; Z87.11 Personal history of peptic ulcer disease; Z87.891 Personal history of nicotine dependence; Z88.0 Allergy status to penicillin
CPT/HCPCS: 86301-90; 96374; 97161-GP; C1751; C1788; J0360; J0640; J1100; J1170; J1453; J1642; J1650; J1815; J2060; J2250; J2270; J2405; J2469; J2550; J2704; J2997; J3010; J3370; J3475; J3490; J9190; J9206; J9263; Q5101-ZA; Q9967

== ENCOUNTER 2017-10-24 16:17 | Inpatient (IN) | payer OTHER ==
[2017-10-24] MEDS ORDERED: PROTOCOL MAGNESIUM 1 DOSE IV PRN (18:06)
[2017-10-24] MEDS ORDERED: PROTOCOL POTASSIUM 1 DOSE MISC PRN (18:06)
[2017-10-24] MEDS ORDERED: POTASSIUM CL 20 MEQ/15 ML UDCUP PO ONE (18:06)
[2017-10-24] MEDS ORDERED: ONDANSETRON 4 MG/2 ML VIAL IVP PRN (18:10)
[2017-10-24] MEDS ORDERED: ACETAMINOPHEN 325 MG TAB PO PRN (18:10)
[2017-10-24] MEDS ORDERED: ONDANSETRON DISINTEGRATING 4 MG TAB PO PRN (18:10)
--- NOTE | 2017-10-24 18:17 | PDGENHP ---
History and Physical - Chief Complaint diarrhea - History of Present Illness This is a 52 yo female with Stage IV pancreatic cancer who is being directly admitted from Dr. Waggoner's office due to Diarrhea, Dehydrations, and Hypokalemia. She reports diarrhea since yesterday, low oral intake. K was found to be 2.7. Na was found to be 129. Unclear how long the Na has been at that level. VSS are stable. She does not have hypotension. She has not been febrile. She denies CV, Resp sx's including SOB or cough. no urinary sx's. PMHx: LUE edema pancreatic cancer H-Pylori Gastritis HTN PSHx: Pancreatic Cyst removal Soc Hx: No Tobacco, no active ETOH, FmHx: DM CBC: WBC 10 BMP: Na 129, K 2.7 History Information - Allergies/Home Medication List Allergies/Adverse Reactions: Penicillins Allergy (Verified 10/03/17 10:05) Hives Home Medications: Omeprazole [Prilosec 20 mg] 40 mg PO BID 09/14/17 [Last Taken 10/02/17 09:00] ALPRAZolam [Xanax 0.25 MG (*)] 0.25 mg PO HS PRN 10/03/17 [Last Taken 10/02/17] Bismuth Subsalicylate [Pepto-Bismol oral liquid (*)] 15 ml PO Q3 PRN 10/03/17 [ Last Taken Unknown] Calcium Carbonate [Tums 500MG (*)] 500 mg PO DAILY PRN 10/03/17 [Last Taken Unknown] Clarithromycin [Biaxin (*)] 500 mg PO BID 10/03/17 [Last Taken 10/02/17 22:00] Prochlorperazine Maleate [Compazine 10mg (*)] 10 mg PO Q4-6PRN PRN 10/03/17 [ Last Taken 10/02/17] Sucralfate [Carafate 1gm/10ml Oral Liquid (*)] 1 gm PO QID 10/03/17 [Last Taken 10/02/17] lamoTRIgine [LamICTAL 100 MG (*)] 100 mg PO DAILY 10/03/17 [Last Taken 10/02/17] metroNIDAZOLE [Flagyl 500 mg (*)] 500 mg PO TID 10/03/17 [Last Taken 10/02/17 22 :00] I have personally reviewed and updated: medical history, social history - Past Medical History Additional medical history: kidney stone. depression. IUD. 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 - Surgical History Additional surgical history: ex-lap age 9 mo with pancreatic cyst resection. lithotripsy - Family History Additional family history: mother - DM II. son - pancreatitis, autism. no FHx colon/stomach CA - Social History Smoking Status: Former smoker Review of Systems Review of Systems: ROS: 10pt was reviewed & negative except for what was stated in HPI & below Physical Exam Physical Exam: Temp Pulse Resp BP Pulse Ox 36.4 C 84 16 103/77 92 10/24/17 17:53 10/24/17 17:53 10/24/17 17:53 10/24/17 17:53 10/24/17 17:53 Constitutional: chronically ill appearing Eyes: PERRL Ears, Nose, Mouth, Throat: hearing normal, No dry mucous membranes Cardiovascular: regular rate and rhythym, No JVD Respiratory: no respiratory distress, no rales or rhonchi Gastrointestinal: normoactive bowel sounds, soft, non-tender abdomen Genitourinary: no bladder fullness Skin: warm Musculoskeletal: generalized weakness Neurologic: AAOx3 Psychiatric: interacting appropriately, not anxious, not encephalopathic, thought process linear Lymph, Heme, Immunologic: No petechiae Assessment & Plan Assessment: #Hypokalemia #Dehydration #Diarrhea, likely chemo induced #Hyponatremia, unclear chronicity, likely due to volume deficit #generalized weakness #Stage IV pancreatic cancer Plan: Admit IVF Replace K check mg Recheck labs now careful replacement of Na appropriate home meds Onc to see tomorrow Full code
[2017-10-24] MEDS: NS W/ 20 KCl/L 1,000 ML IV SCH (19:19)
[2017-10-24] MEDS ORDERED: CALCIUM CARBONATE 500 MG CHEWABLE TAB PO PRN (20:29)
[2017-10-24] MEDS ORDERED: fentaNYL 25 MCG PATCH TD SCH (20:30)
[2017-10-24] MEDS ORDERED: POTASSIUM CL 10 MEQ TAB PO ONE (20:42)
[2017-10-24] MEDS: PANTOPRAZOLE SODIUM 40 MG TAB PO SCH (21:22)
[2017-10-24] MEDS ORDERED: LOPERAMIDE HCL 2 MG CAP PO PRN (22:36)
[2017-10-25] MEDS: NS W/ 20 KCl/L 1,000 ML IV SCH (05:50)
[2017-10-25 05:56] LABS: PLATELET COUNT 258 10^3/uL (150-400)
[2017-10-25] MEDS: LORazepam 1 MG TAB PO PRN ×2 (06:44→20:53)
[2017-10-25] MEDS ORDERED: POTASSIUM CL 10 MEQ TAB PO ONE (09:00)
--- NOTE | 2017-10-25 09:26 | PDMN ---
Medical Necessity Medical necessity: M123 dehydration- with electrolyte ab. - Hypokalemia, Hyponatremia, gen weakness, Stage IV pancreatic Ca., diarrhea- further monitoring, tx needed
[2017-10-25] MEDS ORDERED: FLUOROURACIL IV SCH (10:15)
[2017-10-25] MEDS: lamoTRIgine 100 MG TAB PO SCH (10:21)
[2017-10-25] MEDS: RIVAROXABAN 15 MG TAB PO SCH ×2 (10:21→18:43)
[2017-10-25] MEDS: PANTOPRAZOLE SODIUM 40 MG TAB PO SCH ×2 (10:22→20:53)
--- NOTE | 2017-10-25 10:36 | GHP ---
[f rep st] HISTORY AND PHYSICAL DATE OF ADMISSION: 10/24/2017 HISTORY OF PRESENT ILLNESS: Gwendolyn is a pleasant 52-year-old female who was diagnosed initially wi th a stage II pancreatic cancer in August of 2017. Unfortunately, following a recent hospital admi ssion for pancreatitis, she was found to have metastatic disease involving the liver. A laparoscopic biopsy of the lesion confirmed the presence of metastatic disease. The patient received her first cycle of FOLFIRINOX recently. She has had problems with ongoing nause a, vomiting, diarrhea, and limited p.o. intake. She was seen in the office yesterday and her second cycle of FOLFIRINOX was initiated. She was then admitted to the hospital with weakness, decreasing oral intake, nausea and diarrhea. Her diarrhea is under somewhat better control this morning. She is hypokalemic due to nausea and diarrhea and is on an electrolyte protocol. She feels somewhat better. She is accompanied this morning by her ex-, as well as her friend Shree. PAST MEDICAL HISTORY: 1. Nephrolithiasis. 2. Depression. 3. History of pancreatic cyst, age 9 months. SOCIAL HISTORY: The patient lives independently in [place]. She is recently , but her ex-h usband has remained active in her life and medical care. 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 She is a fo rmer smoker. REVIEW OF SYSTEMS: As outlined above. Additionally, denies any recent fevers, chills, or sick conta cts. Denies chest pain, cough, exertional dyspnea. Remainder of 10-point review of systems negative. PHYSICAL EXAMINATION: GENERAL: The patient appears fatigued but is in no acute distress. HEENT: Th ere is no evidence of scleral icterus. No evidence of oral mucositis. HEART: Regular without murmu r. LUNGS: Clear bilaterally. ABDOMEN: Soft. There is minimal epigastric tenderness with no guard ing or rebound. No palpable mass. No distention. EXTREMITIES: No extremity swelling or edema. LABORATORY STUDIES: Sodium 132, potassium 3.0, chloride 90, BUN 4, creatinine 0.6, magnesium 1.9. W arden count 7.9, hemoglobin 11.8, hematocrit 34.2, platelet count 250,000, absolute neutrophil count i s 3,500. IMPRESSION: 1. Metastatic pancreatic cancer. 2. Anorexia, secondary to #1. 3. Abdominal pain, secondary to #1, exacerbated by recent episode of pancreatitis. 4. Nausea, vomiting, and diarrhea, likely treatment related. 5. Electrolyte abnormality secondary to chemotherapy-induced nausea and diarrhea. PLAN: Jarrett has been admitted with nausea and diarrhea, likely related to her chemotherapy treatme nt. I have stopped her infusional 5-FU this morning. This was discussed with the patient, her frien d and ex-. I think this is likely contributing to her symptoms. She feels somewhat better since admission with less nausea. I have recommended oral dexamethasone 4 mg q.8 hours to help with her nausea. She will continue to t paula her p.r.n. medications as well. She has had fairly significant epigastric abdominal pain related to her primary pancreatic mass. Apryl antonio has been previously complicated by pancreatitis. Her pain is currently well controlled on a fentan yl 75 mcg patch. She had over-sedation with a higher dose. She is somewhat reluctant to lower the d ose further. The patient had multiple questions regarding her diagnosis and treatment options. I explained to her that the development of hepatic metastasis unfortunately indicates that her cancer is incurable and that treatment would be palliative in nature. She has had a significant degree of difficulty with FO LFIRINOX and I think transitioning her to a better tolerated regimen, such as gemcitabine, Abraxane w ould be reasonable. She will likely remain inpatient for the next few days until she is able to take p.o. more fully. Her questions were answered. Total time for today's visit was approximately 50 minutes of which greater than 50% was spent in coun seling and care coordination. /[id number]/MODL
[2017-10-25] MEDS ORDERED: fentaNYL 75 MCG PATCH TD SCH (12:00)
[2017-10-25] MEDS: DEXAMETHASONE 4 MG TAB PO SCH ×2 (14:24→20:53)
--- NOTE | 2017-10-25 16:38 | ASMTCMCOM ---
CM Note CM Note Notes: Pt recently at [facility] admitted for N/V likely related to her chemo. Pt's DC needs are unclear at this time. CM to follow. Date Signed: 10/25/2017 04:37 PM Electronically Signed By:Sharmila Srivastava LCSW
--- NOTE | 2017-10-25 20:26 | HOSPPROG ---
Hospitalist Progress Note Assessment/Plan: #Hypokalemia - likely secondary to GI losses with diarrhea. Resolved with replacement. Follow #Dehydration - she is adequately volume resuscitated and taking po well. DC IVF 's and monitor. #Diarrhea, likely chemo induced - resolved today #Hyponatremia - likely hypovolemic, resolved with NS #generalized weakness #Stage IV pancreatic cancer - oncology saw today, reviewed metastatic dz process. Pt plans for 2nd opinion. Full code DVT PPLX - Xarelto Dispo - cont inpt, likely home in am if doing well Subjective: Pt feels better. Denies any more diarrhea today. No N/V. She is eating a cheeseburger and drinking a soda. No fevers. Objective: Vital Signs Temp Pulse Resp BP Pulse Ox 36.3 C 80 17 150/89 H 96 10/25/17 19:23 10/25/17 19:23 10/25/17 19:23 10/25/17 19:23 10/25/17 19:23 Laboratory Results 10/25/17 05:30 10/25/17 18:40 10/24/17 10/25/17 10/26/17 05:59 05:59 05:59 Intake Total 1100 1798 Output Total 550 200 Balance 550 1598 - Physical Exam Constitutional: no apparent distress Eyes: PERRL Ears, Nose, Mouth, Throat: moist mucous membranes Cardiovascular: regular rate and rhythym Respiratory: no respiratory distress, clear to auscultation Gastrointestinal: normoactive bowel sounds, soft, non-tender abdomen Skin: warm Musculoskeletal: full muscle strength Neurologic: AAOx3 ICD10 Worksheet Patient Problems: Problems Problem Status Onset Abdominal pain Acute Acute pancreatitis Acute Pancreatic mass Acute
[2017-10-25] MEDS: BIOTENE DRY MOUTH MOUTHWASH 237 ML BTL MM PRN (22:34)
[2017-10-26] MEDS: LORazepam 1 MG TAB PO PRN ×2 (05:37→18:21)
[2017-10-26] MEDS: DEXAMETHASONE 4 MG TAB PO SCH ×3 (05:37→21:12)
[2017-10-26] MEDS: lamoTRIgine 100 MG TAB PO SCH (08:27)
[2017-10-26] MEDS: PANTOPRAZOLE SODIUM 40 MG TAB PO SCH ×2 (08:27→21:12)
[2017-10-26] MEDS: RIVAROXABAN 15 MG TAB PO SCH ×2 (08:28→18:21)
--- NOTE | 2017-10-26 09:38 | HOSPPROG ---
Hospitalist Progress Note Assessment/Plan: #Hypokalemia - likely secondary to GI losses with diarrhea. Resolved with replacement. Follow #Dehydration - she is adequately volume resuscitated and taking po well. DC IVF 's and monitor. #Diarrhea, likely chemo induced - resolved. Cont to monitor to ensure adequate intake and no recurrent symptoms. #Hyponatremia - likely hypovolemic, resolved with NS #generalized weakness #Stage IV pancreatic cancer - discussed with oncology. Will monitor in hospital one more day. Full code DVT PPLX - Xarelto Dispo - cont inpt, likely home in am if doing well Subjective: Pt doing well. No N/V or diarrhea. Eating well, breakfast burrito this am. No fevers. Pain controlled. Objective: Vital Signs Temp Pulse Resp BP Pulse Ox 36.4 C 72 18 144/89 H 95 10/26/17 08:21 10/26/17 08:21 10/26/17 08:21 10/26/17 08:21 10/26/17 08:21 Laboratory Results 10/25/17 05:30 10/26/17 05:30 10/25/17 10/26/17 10/27/17 05:59 05:59 05:59 Intake Total 1100 2198 Output Total 550 600 450 Balance 550 1598 -450 - Physical Exam Constitutional: no apparent distress Eyes: PERRL Ears, Nose, Mouth, Throat: moist mucous membranes Cardiovascular: regular rate and rhythym Respiratory: no respiratory distress Gastrointestinal: normoactive bowel sounds, soft, non-tender abdomen Skin: warm Musculoskeletal: full muscle strength Neurologic: AAOx3 Psychiatric: interacting appropriately ICD10 Worksheet Patient Problems: Problems Problem Status Onset Abdominal pain Acute Acute pancreatitis Acute Pancreatic mass Acute
[2017-10-26] MEDS: BIOTENE DRY MOUTH MOUTHWASH 237 ML BTL MM PRN (12:12)
--- NOTE | 2017-10-26 12:56 | SOAPPROG ---
SOAP Progress Note Assessment/Plan: Assessment: 1) Metastatic pancreatic cancer 2) Chemotherapy induced nausea 3) Chemotherapy induced diarrhea 4) Epigastric abdominal pain secondary to #1 Plan: Gwendolyn feels much better. The Decadron has helped her nausea. She is now eating. Her pain is better controlled on her current dose of Fentanyl. There is no evidence of C. Diff. The diarrhea was treatment related, and has resolved with d/c of her infusional 5 FU. Plan to keep her here today with d/c tomorrow. She should go home on Dexamethasone 4 mg BID. She would like to follow up with me in [place] (she lives in [place]). I will have the office call her to schedule her next week. She and her family had multiple questions regarding diagnosis, prognosis, and treatment options which were answered. 10/26/17 12:51 10/26/17 12:53 Subjective: Feels much better. N/V and diarrhea resolved. Now eating. Pain under better control. Objective: Vital Signs Temp Pulse Resp BP Pulse Ox 36.4 C 78 17 127/87 H 95 10/26/17 12:04 10/26/17 12:04 10/26/17 12:04 10/26/17 12:04 10/26/17 12:04 Laboratory Results 10/25/17 05:30 10/26/17 05:30 10/25/17 10/26/17 10/27/17 05:59 05:59 05:59 Intake Total 1100 2198 Output Total 550 600 450 Balance 550 1598 -450 - Time Spent With Patient Time Spent With Patient: 30 minutes Physical Exam - Physical Exam General Appearance: alert, no apparent distress EENT: PERRL/EOMI Respiratory: lungs clear Cardiac/Chest: normal peripheral pulses, regular rate, rhythm Abdomen: non-tender, soft Skin: normal color Neuro/Psych: alert, normal mood/affect ICD10 Worksheet Patient Problems: Problems Problem Status Onset Abdominal pain Acute Acute pancreatitis Acute Pancreatic mass Acute
--- NOTE | 2017-10-26 15:10 | ASMTCMCOM ---
CM Note CM Note Notes: Pt much improved today. She will likely DC with no needs. Date Signed: 10/26/2017 03:09 PM Electronically Signed By:Sharmila Srivastava LCSW
[2017-10-27] MEDS: LORazepam 1 MG TAB PO PRN ×2 (00:22→04:54)
[2017-10-27] MEDS: DEXAMETHASONE 4 MG TAB PO SCH ×2 (04:54→13:55)
[2017-10-27] MEDS ORDERED: METOCLOPRAMIDE 10 MG/2 ML VIAL IVP PRN (08:37)
[2017-10-27] MEDS: RIVAROXABAN 15 MG TAB PO SCH (09:05)
[2017-10-27] MEDS: PANTOPRAZOLE SODIUM 40 MG TAB PO SCH (09:05)
[2017-10-27] MEDS: lamoTRIgine 100 MG TAB PO SCH (09:05)
[2017-10-27] MEDS ORDERED: chlorproMAZINE HCL 25 MG TAB PO PRN (10:11)
[2017-10-27] MEDS ORDERED: NITROFURANTOIN MACROBID 100 MG CAP PO SCH (11:15)
[2017-10-27 11:27] VITALS: BP 131/86; PULSE 73; RESP 16; TEMP 97.5; O2SAT 94
[2017-10-27 11:39] LABS: PLATELET COUNT 271 10^3/uL (150-400)
--- NOTE | 2017-10-27 12:40 | SOAPPROG ---
SOAP Progress Note Assessment/Plan: Assessment/Plan: 52 yo woman w stage IV pancreatic ca admitted w chemo induced N/V/diarrhea and abdominal pain 1. N/V/diarrhea - much improved chemo related C. diff negative doing better w dexamethasone will cont po BID 2. abd pain - improved taking in po without issue cont current pain meds 3. panceatic ca - admitted during C2 FOLFIRINOX f/w w Dr Murray as out pt next week 4. DVT - xarelto 5. Hiccups - treatment related w dex; trial of longer acting benzo did have thorazine here 10/27/17 12:37 10/27/17 12:38 10/27/17 12:40 10/27/17 12:41 Subjective: hiccups continue c/o lack of sleep Objective: Vital Signs Temp Pulse Resp BP Pulse Ox 36.4 C 73 16 131/86 H 94 10/27/17 11:26 10/27/17 11:26 10/27/17 11:26 10/27/17 11:26 10/27/17 11:26 Microbiology 10/25/17 23:50 Urine Culture - Final Urine,Clean Catch Escherichia Coli Esbl Three [place] Types 10/26/17 15:15 Gastrointestinal Tract Panel (PCR) - Final Stool No Organism Detected Laboratory Results 10/27/17 11:30 10/27/17 04:50 10/26/17 10/27/17 10/28/17 05:59 05:59 05:59 Intake Total 2198 2250 Output Total 600 1650 Balance 1598 600 Gen - NAD HEENT - anicteric CV - RRR Chest - CTA abd- soft, NT, BS+ ext - no edema ICD10 Worksheet Patient Problems: Problems Problem Status Onset Abdominal pain Acute Acute pancreatitis Acute Pancreatic mass Acute
--- NOTE | 2017-10-27 14:03 | ASDISCHSUM ---
Discharge Information Plan Status:Home with No Needs Medically Cleared to Leave:10/26/2017 Discharge Date:10/26/2017 CM D/C Disposition:Home, Routine, Self-Care ADT D/C Disposition:Home, Routine, Self-Care Projected Discharge Date:10/27/2017 12:00 AM Transportation at D/C:Family Discharge Delay Reason: Follow-Up Date:10/27/2017 12:00 AM Discharge Slot: Final Diagnosis: Placement Information Patient Contact Information Contact Name:FREDI Relationship: Address:[address] City:[place] Alternate Phone: [facility]/Zip Code:[place] [address] Email: Financial Information Financial Class:HMO and PPO Plans Primary Plan Desc:RD PPO Primary Plan Number:[id number] Secondary Plan Desc:[employer] Secondary Plan Number:[id number] Assessment Information [facility] CM Progress Note CM Note CM Note Notes: Pt recently at [facility] admitted for N/V likely related to her chemo. Pt's DC needs are unclear at this time. CM to follow. Date Signed: 10/25/2017 04:37 PM Electronically Signed By:Sharmila Srivastava LCSW [facility] CM Progress Note CM Note CM Note Notes: Pt much improved today. She will likely DC with no needs. Date Signed: 10/26/2017 03:09 PM Electronically Signed By:Sharmila Srivastava LCSW Intervention Information
--- NOTE | 2017-10-28 06:16 | GDS ---
[f rep st] DISCHARGE SUMMARY DISCHARGE DIAGNOSES: 1. Diarrhea, likely secondary to chemotherapy, resolved. 2. Hypokalemia, likely secondary to gastrointestinal losses, resolved. 3. Volume depletion, resolved with intravenous fluids. 4. Hyponatremia, resolved with intravenous fluids. 5. Generalized weakness. 6. Stage IV pancreatic cancer. 7. Left upper extremity deep vein thrombosis on chronic anticoagulation. CONSULTANTS: Dr. Gino Murray, oncology. HISTORY: For details please see the history and physical dated October 24, 2017. In brief, the anna ent is a 52-year-old female with a history of metastatic pancreatic cancer and recent hospitalization for pancreatitis, who presents to the hospital with acute diarrhea. She was admitted to the [facility] for further management. HOSPITAL COURSE: Patient was directly admitted to the [facility], where she was re ceiving an IV pump infusion of 5-FU. Diarrhea is a known complication of this chemotherapy agent. H er infusion was stopped. She was treated in the hospital with IV fluids, antiemetics, and dexamethas one and had rapid improvement. She was able to tolerate a full diet, eating cheeseburgers and breakf ast burritos without any further nausea, vomiting, or diarrhea. She did unfortunately develop hiccup s which may be related to the dexamethasone. This was managed with Reglan, Thorazine, and Klonopin. She had a urinalysis on admission that was negative, though it was noted the culture grew 30,000 to 40,000 colonies of ESBL E coli. On the day of discharge, shecomplained of dysuria and a repeat urina lysis shows 3+ blood, marked pyuria with 50 to 180 white cells and 50 to 180 red cells, 3+ bacteria, and a repeat culture is pending. However, given her recent culture with ESBL E coli and now the onse t of symptoms, she is treated with oral nitrofurantoin based on sensitivities of her recent culture. I did review this with Infectious Disease, who reports that for cystitis nitrofurantoin is appropria te therapy for ESBL E coli in cases where it is sensitive which it is in this case. She had no fever s or leukocytosis. A GI pathogen panel was negative. She remained hemodynamically stable without hy potension or tachycardia. She was monitored in the hospital for an additional day to ensure adequate oral intake, and she continues to feel well and wishes to discharge home. DISPOSITION: Patient was discharged home in stable condition. FOLLOWUP: Patient will follow up with her primary oncologist at the [facility]. DISCHARGE MEDICATIONS: [facility] list. New medication s on discharge include: 1. Thorazine 25-50 mg p.o. t.i.d. p.r.n. for hiccups, #60, no refills. 2. Klonopin 1 mg p.o. b.i.d. p.r.n. for hiccups, #20, no refills. 3. Dexamethasone 4 mg p.o. b.i.d., #14, no refills. 4. Nitrofurantoin 100 mg p.o. twice daily, #14, no refills. 5. She is also given a prescription refill of fentanyl 75 mcg patch q.3 days, #10, no refills at her request. 6. She will continue all other outpatient medications as previously prescribed. Discontinued medications: Fluorouracil pump is discontinued. /[id number]/MODL
== END 2017-10-27 14:31 | disposition home or self-care (01) | DRG 394 ==
LOC: F1N 17:29 → PREOBSVTOIN 17:32
PROVIDERS: ADMIT Family Medicine; ATTEND Hospitalist
DX: K52.1 Toxic gastroenteritis and colitis (principal); T45.1X5A Adverse effect of antineoplastic and immunosuppressive drugs, initial encounter; E87.6 Hypokalemia; E87.1 Hypo-osmolality and hyponatremia; E86.9 Volume depletion, unspecified; C25.0 Malignant neoplasm of head of pancreas; C78.7 Secondary malignant neoplasm of liver and intrahepatic bile duct; R11.2 Nausea with vomiting, unspecified; R10.13 Epigastric pain; R06.6 Hiccough; N30.01 Acute cystitis with hematuria; B96.20 Unspecified Escherichia coli [E. coli] as the cause of diseases classified elsewhere; Z16.11 Resistance to penicillins; I10 Essential (primary) hypertension; F32.9 Major depressive disorder, single episode, unspecified; Z79.01 Long term (current) use of anticoagulants; Z87.442 Personal history of urinary calculi; Z87.891 Personal history of nicotine dependence; Z86.73 Personal history of transient ischemic attack (TIA), and cerebral infarction without residual deficits; Z88.0 Allergy status to penicillin
CPT/HCPCS: 97116-GP; 97161-GP; J1642; J2765

== ENCOUNTER 2017-11-26 09:34 | Emergency (ER) | payer OTHER ==
[2017-11-26] MEDS ORDERED: HYDROmorphONE/DILAUDID 2 MG/ML INJ IVP ONE ×4 (10:01→15:26)
[2017-11-26] MEDS ORDERED: NS 1,000 ML IV ONE ×2 (10:07→10:26)
[2017-11-26] MEDS ORDERED: HYDROmorphONE/DILAUDID 2 MG TAB PO ONE ×2 (10:11→15:03)
--- NOTE | 2017-11-26 10:19 | EDPHY ---
H & P Time Seen by Provider: 11/26/17 10:04 HPI/ROS: Chief complaint. Abdominal pain HPI. Patient is a 52-year-old female with abdominal pain. She was diagnosed with pancreatic cancer in August 2017. It was already metastatic. She has been recommended to have hospice. Apparently she was out of her Dilaudid for patient pain control over the weekend and comes in with abdominal pain. Decreased oral intake. She did receive a transfusion last week but again hospice has been recommended to the patient. Pain is in the abdomen in the middle of her abdomen radiation through to her back. No chest discomfort or shortness of breath. ROS Constitutional. no fever/chills, no weakness Eyes. no problems with vision ENT. no sore throat, no nasal drainage Cardiovascular. no chest pain Respiratory. no shortness of breath, no cough Abdominal. Mid abdominal pain . no problems urinating MS. no calf pain/swelling, no neck/back pain, no joint pain Skin. no rash Lymph. no swollen glands Neuro. no headache, no dizziness, no difficulty walking or with speech Past Medical/Surgical History: Past medical history significant for depression, kidney stones, , metastatic pancreatic cancer Social History: , nonsmoker, no alcohol Smoking Status: Former smoker Physical Exam: General Appearance: Alert well-developed female moderate distress vital signs are stable Eyes: Pupils equal and round no pallor or injection. ENT, Mouth: Mucous membranes are dry. Respiratory: There are no retractions, lungs are clear to auscultation. Cardiovascular: Regular rate and rhythm. Gastrointestinal: Abdomen is soft with tenderness in the mid abdomen. No masses. Normal bowel sounds. Neurological: Awake and alert, sensory and motor exams grossly normal. Skin: Warm and dry, no rashes. Musculoskeletal: Neck is supple nontender. Extremities symmetrical, full range of motion. Psychiatric: Patient is oriented X 3, there is no agitation. Constitutional: Initial Vital Signs Temperature (C) 36.5 C 11/26/17 09:37 Heart Rate 88 11/26/17 09:37 Respiratory Rate 18 11/26/17 09:37 Blood Pressure 153/92 H 11/26/17 09:37 O2 Sat (%) 98 11/26/17 09:37 O2 Delivery Mode Room Air Allergies/Adverse Reactions: Penicillins Allergy (Intermediate, Verified 11/26/17 09:36) Hives Home Medications: Medication Instructions Recorded Omeprazole [Prilosec 20 mg] 09/14/17 lamoTRIgine [LamICTAL 100 MG (*)] 10/03/17 Dexamethasone [Decadron 4 MG (*)] 11/23/17 HYDROmorphone PRN 11/23/17 LORazepam [Ativan (*)] 11/23/17 Nystatin Susp 11/23/17 Ondansetron HCl [Zofran] 11/23/17 Potassium Chloride 11/23/17 Senna 11/23/17 fentaNYL [Duragesic 75 MCG Patch 150 mcg TD Q3D 11/23/17 (*)] traMADol PRN 11/23/17 HYDROmorphone HCL [Dilaudid 2 mg 2 mg PO Q4-6PRN PRN #10 tab 11/26/17 (*)] Medical Decision Making Procedures: IV normal saline and patient is given 2 L of saline. Oral and IV Dilaudid with repeated doses of IV Dilaudid. The family wants patient on hospice and hospice comes to evaluate the patient there trying to get her admitted to the hospice service. She has also been seen by palliative care in our department. The recommendation is not to admit the patient and patient and family are in agreement. After multiple of phone calls and attempts to directly admit the patient from our emergency department to hospice turns out they are not going to be able to admit the patient to hospice until this evening at about 10:00 p.m.. At 3:00 p.m. The plan is to discharge the patient with prescriptions for pain medication and she will be met by hospice nurse and then accompanied to hospice at 10:00 p.m. Nba. Everyone seems to be in agreement with this plan ED Course/Re-evaluation: Serial evaluations, discussions, phone calls reflected in above paragraph. Hydration and pain control in the emergency department Differential Diagnosis: Patient with poor pain management control and has been out of her Dilaudid for the last several days. Continuing to have discomfort despite starting her back on Dilaudid. She is apparent terminal pancreatic cancer and the plan between palliative care, hospice, family, patient is to not admit the patient to the hospital but to admit her to hospice this evening. - Data Points Laboratory Results: Laboratory Results 11/26/17 10:05 11/26/17 10:05 11/26/17 11/26/17 10:05 10:05 WBC 4.47 10^3/uL 10^3/uL (3.80-9.50) RBC 2.96 10^6/uL L 10^6/uL (4.18-5.33) Hgb 9.2 g/dL L g/dL (12.6-16.3) Hct 27.0 % L % (38.0-47.0) MCV 91.2 fL fL (81.5-99.8) MCH 31.1 pg pg (27.9-34.1) MCHC 34.1 g/dL g/dL (32.4-36.7) RDW 15.9 % H % (11.5-15.2) Plt Count 149 10^3/uL L 10^3/uL (150-400) MPV 9.8 fL fL (8.7-11.7) Neut % (Auto) 70.3 % % (39.3-74.2) Lymph % (Auto) 12.1 % L % (15.0-45.0) [place] % (Auto) 15.2 % H % (4.5-13.0) Eos % (Auto) 0.4 % L % (0.6-7.6) Baso % (Auto) 0.2 % L % (0.3-1.7) Nucleat RBC Rel Count 0.0 % % (0.0-0.2) Absolute Neuts (auto) 3.14 10^3/uL 10^3/uL (1.70-6.50) Absolute Lymphs (auto) 0.54 10^3/uL L 10^3/uL (1.00-3.00) Absolute Monos (auto) 0.68 10^3/uL 10^3/uL (0.30-0.80) Absolute Eos (auto) 0.02 10^3/uL L 10^3/uL (0.03-0.40) Absolute Basos (auto) 0.01 10^3/uL L 10^3/uL (0.02-0.10) Absolute Nucleated RBC 0.00 10^3/uL 10^3/uL (0-0.01) Immature Gran % 1.8 % H % (0.0-1.1) Immature Gran # 0.08 10^3/uL 10^3/uL (0.00-0.10) Sodium 136 mEq/L mEq/L (135-145) Potassium 3.8 mEq/L mEq/L (3.5-5.2) Chloride 101 mEq/L mEq/L (97-110) Carbon Dioxide 28 mEq/l mEq/l (22-31) Anion Gap 7 mEq/L L mEq/L (8-16) BUN 9 mg/dL mg/dL (7-23) Creatinine 0.3 mg/dL L mg/dL (0.6-1.0) Estimated GFR > 60 Glucose 97 mg/dL mg/dL (70-100) Calcium 7.9 mg/dL L mg/dL (8.5-10.4) Total Bilirubin 0.7 mg/dL mg/dL (0.1-1.4) Conjugated Bilirubin 0.5 mg/dL mg/dL (0.0-0.5) Unconjugated Bilirubin 0.2 mg/dL mg/dL (0.0-1.1) AST 27 IU/L IU/L (14-46) ALT 82 IU/L H IU/L (9-52) Alkaline Phosphatase 175 IU/L H IU/L (38-126) Total Protein 4.8 g/dL L g/dL (6.3-8.2) Albumin 2.5 g/dL L g/dL (3.5-5.0) Lipase 208 IU/L IU/L (23-300) Medications Given: Discontinued Medications Hydromorphone HCl (Dilaudid) 0.5 mg IVP EDNOW ONE Stop: 11/26/17 10:02 Last Admin: 11/26/17 10:06 Dose: 0.5 mg Hydromorphone HCl (Dilaudid) 2 mg PO EDNOW ONE Stop: 11/26/17 10:12 Last Admin: 11/26/17 10:16 Dose: 2 mg Hydromorphone HCl (Dilaudid) 1 mg IVP EDNOW ONE Stop: 11/26/17 10:27 Last Admin: 11/26/17 10:31 Dose: 1 mg Hydromorphone HCl (Dilaudid) 0.5 mg IVP EDNOW ONE Stop: 11/26/17 12:38 Last Admin: 11/26/17 12:41 Dose: 0.5 mg Hydromorphone HCl (Dilaudid) 2 mg PO EDNOW ONE Stop: 11/26/17 15:04 Last Admin: 11/26/17 15:06 Dose: 2 mg Hydromorphone HCl (Dilaudid) 1 mg IVP EDNOW ONE Stop: 11/26/17 15:27 Last Admin: 11/26/17 15:29 Dose: 1 mg Sodium Chloride (Ns) 1,000 mls @ 0 mls/hr IV ONCE ONE PRN Reason: Wide Open Stop: 11/26/17 10:08 Last Admin: 11/26/17 10:08 Dose: 1,000 mls Sodium Chloride (Ns) 1,000 mls @ 0 mls/hr IV EDNOW ONE; Wide Open PRN Reason: Protocol Stop: 11/26/17 10:27 Last Admin: 11/26/17 11:16 Dose: Not Given Lorazepam (Ativan Injection) 0.5 mg IVP EDNOW ONE Stop: 11/26/17 11:46 Last Admin: 11/26/17 11:51 Dose: 0.5 mg Lorazepam (Ativan Injection) 0.5 mg IVP EDNOW ONE Stop: 11/26/17 13:27 Last Admin: 11/26/17 13:30 Dose: 0.5 mg Departure - Departure Disposition: Home, Routine, Self-Care Clinical Impression: Abdominal pain Qualifiers: Abdominal location: epigastric Qualified Code(s): R10.13 - Epigastric pain Pancreatic cancer Qualifiers: Pancreatic malignancy location: unspecified Qualified Code(s): C25.9 - Malignant neoplasm of pancreas, unspecified Condition: Fair Instructions: Acute Abdominal Pain (ED) Additional Instructions: Dilaudid as needed for pain. Hospice nurse will me 2 [address] her residence. Plan is admission to hospice this evening about 10:00 p.m.. Return for worsening symptoms. Referrals: SHYANNE STOKES [Primary Care Provider] - As per Instructions Prescriptions: HYDROmorphone HCL [Dilaudid 2 mg (*)] 2 mg PO Q4-6PRN PRN #10 tab PRN Reason: Pain, Moderate
[2017-11-26 10:34] LABS: PLATELET COUNT 149 10^3/uL (150-400)
[2017-11-26] MEDS ORDERED: LORazepam 2 MG/ML INJ IVP ONE ×2 (11:45→13:26)
[2017-11-26] MEDS ORDERED: LORazepam 2 MG/ML INJ ONE (11:47)
[2017-11-26 12:41] VITALS: RESP 18
[2017-11-26 15:48] VITALS: BP 149/87; PULSE 78; TEMP 98.6; O2SAT 94
== END 2017-11-26 16:25 | disposition home or self-care (01) ==
DX: R10.13 Epigastric pain (principal); C25.9 Malignant neoplasm of pancreas, unspecified; Z87.891 Personal history of nicotine dependence
CPT/HCPCS: 96374; J1170; J2060

== ENCOUNTER 2017-12-05 11:53 | Observation (INO) | payer OTHER ==
[2017-12-05] MEDS ORDERED: NALOXONE HCL 0.4 MG/ML INJ IVP PRN (12:14)
[2017-12-05] MEDS ORDERED: MIDAZOLAM 2 MG/2 ML VIAL IVP PRN (12:14)
[2017-12-05] MEDS ORDERED: fentaNYL 100 MCG/2 ML INJ IVP PRN (12:14)
[2017-12-05] MEDS ORDERED: FLUMAZENIL 0.5 MG/5 ML MDV IVP PRN (12:14)
[2017-12-05] MEDS ORDERED: NS 1,000 ML IV SCH (12:15)
[2017-12-05] MEDS ORDERED: ETHYL ALCOHOL IV ONE (13:30)
[2017-12-05] MEDS ORDERED: HALOPERIDOL 0.5 MG TAB PO PRN (13:42)
[2017-12-05] MEDS ORDERED: [UNRECOGNIZED DRUG - OTHER] IV PRN ×2 (13:42→14:30)
[2017-12-05] MEDS ORDERED: LORazepam 1 MG/0.5 ML UDSYR PO PRN (13:42)
[2017-12-05] MEDS ORDERED: HYDROMORPHONE 10 MG/ML IV PRN ×2 (13:42→14:30)
[2017-12-05] MEDS ORDERED: LORazepam 1 MG/0.5 ML UDSYR SL PRN (13:42)
[2017-12-05] MEDS ORDERED: HALOPERIDOL LACT 5 MG/ML INJ IV PRN (13:42)
[2017-12-05] MEDS ORDERED: HALOPERIDOL 1 MG TAB PO PRN (14:02)
[2017-12-05] MEDS ORDERED: HYDROMORPHONE 10 MG/ML IV SCH (15:00)
[2017-12-05] MEDS ORDERED: [UNRECOGNIZED DRUG - OTHER] IV SCH (15:00)
[2017-12-05] MEDS: HALOPERIDOL LACT 5 MG/ML INJ IV SCH ×2 (15:17→19:15)
--- NOTE | 2017-12-05 15:47 | ASMTCMCOM ---
CM Note CM Note Notes: Pt admitted from [facility] as GIP for placement of drain and ppain block by IR. Plan is for pt ot return to [facility] at [place], Jackie from [facility] delivered paperwork. CM will follow as needed. Date Signed: 12/05/2017 03:46 PM Electronically Signed By:Sharmila Srivastava LCSW
[2017-12-05] MEDS ORDERED: IOPAMIDOL (ISOVUE-300) 100 ML BTL ONE (16:21)
[2017-12-05] MEDS ORDERED: NON-FORMULARY NEW DRUG (Nystatin Susp 5 ML) PO SCH (18:00)
--- NOTE | 2017-12-05 18:25 | PDRADPN ---
Radiology Procedure Note Date of Procedure: 12/05/17 Radiologist: Mariya Jimenez Pre-op Diagnosis: PANCREATIC CANCER Post-op Diagnosis: SAME Indication: GASTRIC OUTLET OBSTRUCTION Procedure: G-TUBE PLACEMENT Finding(s): 3300CC DRAINED. DECOMPRESSION OF STOMACH TO THIRD PORTION OF DUODENUM Inf/Abcess present in the surg proc area at time of surgery?: No Complications: NONE
--- NOTE | 2017-12-05 18:47 | PDGENHP ---
History and Physical History and Physical: CC: Abdominal pain HISTORY: This patient with end-stage pancreatic cancer comes to the hospital from hospice center in order to trying gain pain control unobtainable at the hospice center. She has advanced pancreatic cancer with gastric outlet obstruction. She had recent imaging studies done elsewhere showing what appeared to be very large mass and very distended stomach. She has been vomiting with significant upper abdominal pain and unable to keep any food or fluid. Apparently she was recently transferred approximately 2 days ago from a hospice care center with hospice [facility] to the inpatient [facility] hospice center here at the [facility]. Upon evaluation there it was recognized that she had gastric outlet obstruction and that despite ongoing high -dose continuous IV narcotic pump in addition to very large doses of IV narcotic for breakthrough pain she has completely inadequate control of her pain and her nausea. This felt to be due partly to the gastric outlet obstruction as well as adjacent see of her mass to her celiac plexus. Dr. Joya talked with Dr. Manish Jimenez about the situation and it was elected to bring the patient into the hospital for attempt at celiac plexus block as well as placement of a venting gastrostomy tube and feeding jejunostomy tube. Initially as the patient arrived here she did have uncontrolled pain even though she was quite sedated to the point of hardly being able to interview her. As I talked with her and her mother and a close friend who were at the bedside it was clear that as was presented from Dr. Joya that they all wished for her to have a no core and palliative care approach to her pain but they would really like to see if we can do these procedures as above to relieve her pain. It is quite apparent does looking at the patient to talk to them that she is quite dehydrated we talked about hydration. In order to get her through these procedures we would have to hydrate her at intravenously at least temporarily an even though that is all might be slightly life-prolonging they are okay with that but agree that they do not want any life-prolonging measures after her procedures here. I did review with the patient's family that as she is extremely dehydrated and has a gastric outlet obstruction, that the patient' s time is probably quite limited as she will not be able to hydrate herself and they are all agreeing tonight use IV fluids. The patient did go this afternoon to the radiology department where Dr. Jimenez performed a CT scan to review her anatomy. What was determined is that she does indeed have a pancreatic mass adjacent to her celiac plexus that may be causing some neuropathic pain, however what was read as a very large mass on previous CT scans elsewhere is actually a severely distended stomach fluid filled. Dr. Jimenez has elected approach was to place a venting gastrostomy tube which was done believing her of 3 L of fluid promptly. Upon this the patient had decrease in her pain as well as became significantly more alert ( significant IV hydration we have given her here may also be contributing significant to her alertness at this time). The patient is now transferred back to the [facility] floor where we will observe her overnight for stability and for adequacy of pain relief with her medications. With Dr. Jimenez we will reassess in the morning to see whether there might still be some neuropathic sound pain amenable to celiac plexus block which could be approached in the interventional radiology suite at that time. Beyond this the patient should be able to discharge back to the hospice care center at the [facility] ROS: A comprehensive 10 system review revealed no other significant findings PAST MEDICAL HISTORY: Extensive metastatic pancreatic cancer FAMILY MEDICAL HISTORY: No cancers SOCIAL HISTORY: and has 2 daughters. Attended here today at her bedside by her mother with her to arrive shortly MEDICATIONS: The patients list has been reconciled by our clinical pharmacist in the EMR. I have reviewed the list and ordered appropriate medicines. PHYSICAL EXAMINATION: Vital Signs: Fairly tachycardic with a regular pulse, blood pressures however are normal, respirations are slowed likely due to her narcotic, no fever Teletypesetter Operator: Examination: General: quite sedated but awake and able to answer some of my questions though very slowly, at other times strips off Emaciated with severe cachexia and with obvious decreased skin turgor and dry oral mucosa Skin: warm, dry, good color, no rash HEENT: normal other than above Lungs: Somewhat coarse sounds Heart: regular and tachycardic, no murmur Abdomen: Distended and slightly tense but does not feel like peritonitis, no obvious palpable mass per se Upper Extremities: normal Lower Extremities: no edema, warm No Bleeding or bruising RADIOLOGY STUDIES: ASSESSMENT: -gastric outlet obstruction, now status post placement of venting gastrostomy tube percutaneously -dehydration -end-stage pancreatic cancer -uncontrolled cancer pain on continuous and additional IV narcotic -DNR At this time hopefully this venting gastrostomy tube will improve her pain dramatically such that can be reasonably controlled with her current pain medicines. We have the option of still performing a celiac plexus blocks tomorrow if she seems to have ongoing pain amenable to that. Otherwise she will be transferred back to the true hospice center at the [facility]. I expect her life expectancy is probably TB measured in days to weaker to due to her gastric outlet obstruction and inability to hydrate her with a desire to not use any IV hydration beyond this. The IV for dehydration that we have given her here will prolong her life somewhat. Patient's family understands this clearly I have reviewed the patient's case in detail with DrAlyssa Jimenez I have reviewed the patient's past medical records as part of this assessment, including records from hospice care center and some records we have obtained from [facility] from hospitalization there last month
[2017-12-05] MEDS: LORazepam 2 MG/ML INJ IV PRN (19:14)
[2017-12-05] MEDS: NYSTATIN SUSP 500000 UNIT/5 ML UDCUP PO SCH (19:19)
[2017-12-05] MEDS ORDERED: QUEtiapine FUMARATE 25 MG TAB PO SCH (21:00)
[2017-12-06] MEDS: HALOPERIDOL LACT 5 MG/ML INJ IV SCH (02:13)
[2017-12-06] MEDS: NYSTATIN SUSP 500000 UNIT/5 ML UDCUP PO SCH (02:15)
[2017-12-06 03:26] VITALS: BP 85/68; PULSE 133; RESP 16; TEMP 99.5; O2SAT 98
[2017-12-06] MEDS: LORazepam 2 MG/ML INJ IV PRN (04:38)
--- NOTE | 2017-12-06 07:40 | GDS ---
[f rep st] DISCHARGE SUMMARY SUMMARY PCP: Unlisted. TIME OF : 5:40 a.m. PRIMARY DIAGNOSES: 1. Metastatic pancreatic cancer. 2. Gastric outlet obstruction. 3. Intractable abdominal pain. 4. Dehydration. BRIEF ADMISSION HISTORY/HOSPITAL COURSE: The patient was admitted from hospice for potential IR inte rvention for reduction of her severe abdominal pain. It was noted that patient had gastric distentio n and a venting G-tube was placed with improvement in patient's symptoms. There was concern that the re might be encroachment of her pancreatic mass on the celiac plexus. However, patient did have impr ovement in her pain and plan was to transfer patient back to hospice care. Unfortunately, the patien t at 0540. /[id number]/MODL
[2017-12-06] MEDS ORDERED: lamoTRIgine 100 MG TAB PO SCH (09:00)
== END 2017-12-06 10:23 | disposition expired ==
LOC: F1N 11:53 → INTOOBSV 11:53
PROVIDERS: ADMIT Internal Medicine; ATTEND Family Medicine
PROC: 0D9630Z Drainage of Stomach with Drainage Device, Percutaneous Approach (ICD-10-PCS; principal; 2017-12-05)
DX: G89.3 Neoplasm related pain (acute) (chronic) (principal); C25.9 Malignant neoplasm of pancreas, unspecified; K31.1 Adult hypertrophic pyloric stenosis; E86.0 Dehydration; R11.2 Nausea with vomiting, unspecified; I10 Essential (primary) hypertension; F32.9 Major depressive disorder, single episode, unspecified; Z87.891 Personal history of nicotine dependence; Z88.0 Allergy status to penicillin; Z66 Do not resuscitate
CPT/HCPCS: 49440; 74177; G0378; J1630; J2060; Q9967